=== PATIENT | female | born 1935 | race Caucasian/White ===

== ENCOUNTER → 2016-12-07 | Outpatient (CLI) | payer OTHER ==
[~2016-12-07] MED LIST: ACET-1256 PO; ALBUAER2 INH; ASPI81TA21 PO; ATOR-24 PO; CALC-388 PO; CHOL100027 PO; CLC100 PO; CYCL0.052 OP; DICL1GEL12 TOP; DICL1GEL28 TOP; DOCU100C31 PO; ISOS60TA25 PO; LEVO100T7 PO; MECL1TAB42 PO; MECL25TA2 PO; MULT-190 PO; MULT-506 PO; NITR0.4S UT; OMEG10007 PO; OPTIRAY 320 IV PRN; RIBO100T9 PO; TPRSR/50 PO; VNTHFA/IN INH
--- NOTE | 2016-12-07 10:06 | DIAGNOSTIC IMAGING REPORT ---
CT KIDNEY (ABDOMEN) COMBO CT DOSE: 1747.10 mGy.cm CLINICAL HISTORY: Left renal mass. Abnormal CT scan. TECHNIQUE: Unenhanced images were obtained through the upper abdomen. The patient was then scanned in a dynamic helical fashion during intravenous administration of 94 cc of Optiray 320. 5 minute delayed images were acquired. COMPARISON STUDY: 11/05/2016 FINDINGS: There are mild basilar atelectatic changes. No pleural effusions are visualized. There is hepatic steatosis. No focal masses are visualized. There are multiple gallstones present. No splenic masses are visualized. No peripancreatic masses are visualized. No adrenal masses are visualized. There is a small fat-containing umbilical hernia. There is minimal infiltration of the mesentery, finding unchanged the prior study. There is been interval resolution of the previously identified left-sided uroepithelial thickening. There is left renal cortical scarring. There is a 22 mm right renal cyst. There are 2 upper pole left renal cysts each measuring 8 mm. No solid renal masses are visualized. No collecting system filling defects are visualized on delayed images. IMPRESSION: 1. Cholelithiasis 2. Hepatic steatosis 3. Bilateral renal cysts 4. Left renal cortical scarring 5. No solid renal masses identified. Interval resolution of the previous identified uroepithelial thickening, and interval resolution of the 4 cm hypoenhancing focus within the midpole the left kidney. This indicates resolution of an inflammatory process. Electronically signed by: Juan Caruso M.D. 12/07/2016 10:05 AM Dictated Date/Time: 12/07/2016 9:56 AM
== END | disposition home or self-care (01) ==
LOC: C.CTS 09:11
PROVIDERS: ATTEND Family Medicine
DX: R93.422 Abnormal radiologic findings on diagnostic imaging of left kidney (principal); K76.0 Fatty (change of) liver, not elsewhere classified; K80.20 Calculus of gallbladder without cholecystitis without obstruction

== ENCOUNTER → 2017-01-19 | Outpatient (CLI) | payer OTHER ==
[~2017-01-19] MED LIST changes: -OPTIRAY 320 IV PRN
--- NOTE | 2017-01-19 12:00 | DIAGNOSTIC IMAGING REPORT ---
PA CHEST WITH LEFT-SIDED RIB SERIES CLINICAL HISTORY: Left-sided rib pain. FINDINGS: A PA chest radiograph with 4 additional views from a left-sided rib series is compared to study dated 11/03/2016. The examination is degraded by large body habitus. The heart is enlarged and there is atherosclerotic calcification of the thoracic aorta. The pulmonary vasculature is noncongested. Chronic interstitial thickening is similar to previous. The lungs and pleural spaces are clear noting left basilar atelectasis. No pneumothorax is seen. The skeletal structures are osteopenic. There is no radiographic evidence of acute/distracted left-sided rib fracture on the rib series as clinically queried. The remainder of the bony thorax is grossly intact. Calcified joint bodies are noted in the left shoulder. Degenerative change and mild scoliosis are noted in the thoracic spine. IMPRESSION: 1. Cardiomegaly with no acute cardiopulmonary abnormality. 2. There is no radiographic evidence of acute/distracted left-sided rib fracture on the rib series as clinically queried. Electronically signed by: Erik To M.D. 01/19/2017 11:59 AM Dictated Date/Time: 01/19/2017 11:55 AM
--- NOTE | 2017-01-19 12:21 | DIAGNOSTIC IMAGING REPORT ---
RIGHT PELVIS/UNILATERAL HIP 2-3VIEWS CLINICAL HISTORY: RIGHT HIP PAIN Right pain COMPARISON: None. DISCUSSION: Moderate to rather significant degenerative change of the right as well as left hip. Degenerative subchondral cyst formation of the femoral head. No evidence for acetabular protrusion. Mild reactive osteophytic change at the greater trochanters bilaterally. Moderate degenerative changes low lumbar spine. There is no evidence for soft tissue swelling. IMPRESSION: Moderate/rather significant degenerative change of the hips bilaterally. Degenerative changes low lumbar spine. Electronically signed by: Tao Mustafa M.D. 01/19/2017 12:19 PM Dictated Date/Time: 01/19/2017 12:18 PM
== END | disposition home or self-care (01) ==
LOC: C.RAD1850 11:33
PROVIDERS: ATTEND Family Medicine
DX: R07.81 Pleurodynia (principal); I51.7 Cardiomegaly; M25.551 Pain in right hip

== ENCOUNTER → 2017-03-29 | Outpatient (CLI) | payer OTHER ==
--- NOTE | 2017-03-29 10:52 | DIAGNOSTIC IMAGING REPORT ---
Venous Doppler right leg RIGHT VENOUS DOPP LOWER EXT UNILAT CLINICAL HISTORY: RIGHT KNEE Right pain. Edema. TECHNIQUE: Venous Doppler COMPARISON STUDY: None FINDINGS: Normal study. Instill note is made of a popliteal cyst measuring 5 x 3 cm. IMPRESSION: Normal study . No evidence for deep venous thrombosis. 5 x 3 cm cyst/popliteal cyst posterior/medial to the right knee. Electronically signed by: Tao Mustafa M.D. 03/29/2017 10:51 AM Dictated Date/Time: 03/29/2017 10:42 AM
== END | disposition home or self-care (01) ==
LOC: C.ULTR 10:10
DX: M17.0 Bilateral primary osteoarthritis of knee (principal); M71.21 Synovial cyst of popliteal space [Baker], right knee

== ENCOUNTER 2017-05-05 12:25 | Observation (INO) | payer OTHER ==
[~2017-05-05] VITALS: Ht 167.6 cm; Wt 73.0 kg
[~2017-05-05 12:25] MED LIST changes: -CYCL0.052 OP; -DICL1GEL12 TOP; -DOCU100C31 PO; -ISOS60TA25 PO; -MECL1TAB42 PO; -RIBO100T9 PO; -VNTHFA/IN INH
[2017-05-05] MEDS ORDERED: SODIUM CHLORIDE 0.9% 1000ML 1,000 ML IV STA (12:54)
[2017-05-05] MEDS ORDERED: ONDANSETRON INJ 2 MG/ML 2 ML VIAL IV STA (12:54)
[2017-05-05] MEDS ORDERED: MoRPHine SULFATE 4 MG/ML 1 ML CARP\\VIAL IV STA (12:54)
[2017-05-05 13:05] LABS: BASO % 0.5 %; BASO ABS # 0.03 K/uL (0-0.2); COMPLETE YES; EOS % 2.4 %; HEMATOCRIT 37.7 % (37-47); IG% 0.2 %; LYMPH % 21.8 %; LYMPH ABS # 1.27 K/uL (1.2-3.4); MEAN CELL VOLUME 87.1 fL (80-100); MEAN CORPUSCULAR HEMOGLOBIN 29.8 pg (25-34); MEAN CORPUSCULAR HGB CONC 34.2 g/dl (32-36); MEAN PLATELET VOLUME 9.9 fL (7.4-10.4); MONO % 14.8 %; NEUT % 60.3 %; PLATELET COUNT 124 K/uL (130-400); RED BLOOD COUNT 4.33 M/uL (4.2-5.4); WHITE BLOOD COUNT 5.83 K/uL (4.8-10.8)
--- NOTE | 2017-05-05 13:14 | DIAGNOSTIC IMAGING REPORT ---
CHEST ONE VIEW PORTABLE CLINICAL HISTORY: cough dyspnea COMPARISON STUDY: 11/03/2016 FINDINGS: Mild stable cardia megaly. Diaphragms smooth. Lungs are generally considered clear. Possible early parenchymal infiltrate medial right base. IMPRESSION: Small parenchymal infiltrate medial right base. Mild stable cardiomegaly. Electronically signed by: Tao Mustafa M.D. 05/05/2017 1:13 PM Dictated Date/Time: 05/05/2017 1:12 PM
[2017-05-05 13:24] LABS: ALT/SGPT 26 U/L (12-78); AST/SGOT 21 U/L (15-37); BLOOD UREA NITROGEN 17 mg/dl (7-18); BUN/CREATININE RATIO 19.9 (10-20); CARBON DIOXIDE 23 mmol/L (21-32); CHLORIDE 105 mmol/L (98-107); CREATININE 0.84 mg/dl (0.60-1.20); GLUCOSE 112 mg/dl (70-99); POTASSIUM 3.9 mmol/L (3.5-5.1); SODIUM 138 mmol/L (136-145)
[2017-05-05 13:29] LABS: ALKALINE PHOSPHATASE 129 U/L (45-117)
[2017-05-05] MEDS ORDERED: LEVAQUIN 750MG / 150ML D5W IV STA (13:31)
[2017-05-05] MEDS ORDERED: CEFEPIME IV 1,000 MG in DEXTROSE 5% 100ML 100 ML IV STA (13:31)
[2017-05-05] MEDS ORDERED: MECL1TAB42 PO (13:36)
[2017-05-05] MEDS ORDERED: DOCU100C31 PO (13:36)
[2017-05-05] MEDS ORDERED: VNTHFA/IN INH (13:36)
[2017-05-05] MEDS ORDERED: DICL1GEL12 TOP (13:36)
[2017-05-05] MEDS ORDERED: CYCL0.052 OP (13:42)
[2017-05-05] MEDS ORDERED: ISOS60TA25 PO (13:42)
[2017-05-05] MEDS ORDERED: RIBO100T9 PO (13:42)
[2017-05-05 13:50] LABS: ISTAT CREATININE 0.8 mg/dl (0.6-1.3); ISTAT HEMOGLOBIN 12.2 g/dl (12.0-16.0); ISTAT IONIZED CALCIUM 1.19 mmol/l (1.12-1.32)
[2017-05-05 13:53] LABS: URINE APPEARANCE CLOUDY (CLEAR); URINE COLOR DK YELLOW; URINE EPITHELIAL CELL AUTO >30 /lpf (0-5); URINE NITRITE NEG (NEG); URINE SPECIFIC GRAVITY 1.033 (1.000-1.030); UROBILINOGEN NEG (NEG); ZZUR CULT IF INDIC CLEAN CATCH NO
[2017-05-05 14:16] LABS: MANUAL MICROSCOPIC REQUIRED? NO; REVIEW REQ? YES; URINE BILIRUBIN NEG (NEG)
[2017-05-05] MEDS ORDERED: OPTIRAY 320 IV PRN (14:30)
--- NOTE | 2017-05-05 15:24 | DIAGNOSTIC IMAGING REPORT ---
ABDOMEN AND PELVIS CT WITH IV CONTRAST CT DOSE: 516.23 mGy.cm HISTORY: Generalized abdominal pain. TECHNIQUE: Multiaxial CT images of the abdomen and pelvis were performed following the use of intravenous contrast. COMPARISON STUDY: Abdomen and pelvis CT 11/05/2016. FINDINGS: The lung bases are clear. No pneumoperitoneum. No pneumatosis. Dextroscoliosis and degenerative changes within the lumbar spine. Cholelithiasis. No gallbladder wall thickening. The liver, spleen, adrenal glands, and pancreas are unremarkable. Stable bilateral renal hypodense lesions. These likely represent cysts. Focal scarring within the left renal cortex. Fullness within the right extrarenal pelvis. No hydronephrosis. Normal bladder. The uterus and ovaries are unremarkable. Tiny fat-containing umbilical hernia. No bowel wall thickening or obstruction. Normal appendix. IMPRESSION: 1. No bowel wall thickening or obstruction. 2. Cholelithiasis. 3. Mild fullness within the right extrarenal pelvis. No hydronephrosis. No ureteral calculi. Electronically signed by: Torin Qureshi M.D. 05/05/2017 3:23 PM Dictated Date/Time: 05/05/2017 3:14 PM
[2017-05-05] MEDS ORDERED: MAGNESIUM HYDROXIDE SUSP 30 ML UDC PO PRN (17:00)
[2017-05-05] MEDS ORDERED: ALUMINUM/MAGNESIUM/SIMETH (MAALOX MAX) 30 ML UDC PO PRN (17:00)
[2017-05-05] MEDS ORDERED: DICLOFENAC SOD 1% GEL 100 GM TUBE EXT PRN (17:00)
[2017-05-05] MEDS ORDERED: ACETAMINOPHEN 325 MG TAB PO PRN (17:00)
[2017-05-05] MEDS ORDERED: ALBUTEROL HFA 8 GM INHALER INH PRN (17:00)
[2017-05-05] MEDS ORDERED: POLYETHYLENE (MIRALAX) 17 GM PACK PO PRN (17:00)
[2017-05-05] MEDS ORDERED: MECLIZINE HCL 25 MG TAB PO PRN (17:00)
[2017-05-05] MEDS ORDERED: NITROGLYCERIN 0.4 MG SL PER TAB CHARGE UT PRN (17:00)
[2017-05-05] MEDS ORDERED: ONDANSETRON INJ 2 MG/ML 2 ML VIAL IV PRN (17:00)
[2017-05-05] MEDS ORDERED: ALBUT/IPRATROP 3MG/0.5MG NEB 3 ML VIAL INH PRN (17:00)
[2017-05-05] MEDS ORDERED: MoRPHine SULFATE 2 MG/ML CARP IV PRN (17:15)
--- NOTE | 2017-05-05 17:26 | History and Physical ---
History & Physical Date & Time of Service: May 05, 2017 at 17:07 Chief Complaint: Pain/Tender Stomach And Low Blood Pressure Primary Care Physician: Parul Pulliam PA-C History of Present Illness Source: patient, family (daughter- at bedside ), clinic records, hospital records Patient is a pleasant 81 female, with PMHx of HTN, dyslipidemia, hypothyroidism , and CAD s/p heart catheterization, who presented to the ED because of lower abdominal and back pain. Patient was seen at [facility] who instructed patient to come to ED for further abdominal workup. Patient states she has diffuse pelvic pain- she denies any urinary symptoms. Patient also admits to thoracic/lumbar pain that has been ongoing for a couple of weeks now. She denies any falls/trauma. Pain worsens with movement and ambulating. On she started to develop sore throat, cough, and left ear pain. Symptoms have significantly resolved, but cough persist w/ clear/white sputum production. Patient denies any fever, chills, sweats, lightheadedness, dizziness, vision changes, CP, palpitations, edema, SOB, wheezing, nausea, vomiting, diarrhea, urinary symptoms, melena, numbness/tingling, weakness, anxiety/depression, active bleeding, or new skin discoloration/changes. Patient's last admission was in October of 2016- she was worked up for a TIA but workup was unremarkable. She was found to have E.coli UTI and treated w/ Cipro. Past Medical/Surgical History Medical Problems: 1. HTN 2. Hypothyroidism 3. CAD s/p heart catheterization 4. Dyslipidemia Surgical history: 1. Cataract surgery Family History No pertinent family history Social History Smoking Status: Never Smoker Marital Status: Occupational Status: unemployed Multi-Drug Resistant Organisms History of MDRO: No Allergies Coded Allergies: Cortisone (Verified Allergy, Unknown, redness, hives, itching, 05/05/17) Penicillins (Verified Allergy, Unknown, RASH, 05/05/17) Home Medications Scheduled Aspirin Enteric Coated (Ecotrin Or Generic), 81 MG PO HS Atorvastatin (Lipitor), 40 MG PO HS Calcium Carbonate-Vitamin D (Calcium + D3 600-200 mg-Unit), 1 TAB PO BID Cholecalciferol (Vitamin D 1000 Unit), 2,000 INTER.UNIT PO DAILY Cyclosporine (Ophth) (Restasis), 1 DROP OP BID Docusate Sodium (Docusate Sodium), 100 MG PO BID Isosorbide Mononitrate Ext Rel (Imdur Ext Rel), 60 MG PO QAM Levothyroxine Sodium (Levothyroxine Sodium), 100 MCG PO DAILY Metoprolol Succinate (Metoprolol Succinate ER), 50 MG PO DAILY Multivitamin (Multivitamin), 1 TABLET PO DAILY Nitroglycerin (Nitrostat), 0.4 MG UT PRN Ocuvite Preservision (Ocuvite Preservision), 1 TAB PO DAILY Riboflavin (Vitamin B-2), 400 MG PO DAILY Scheduled PRN Acetaminophen (Tylenol), 1,000 MG PO QID PRN for Pain Albuterol Hfa (Ventolin Hfa), 2 PUFFS INH QID PRN for Shortness of Breath Diclofenac Sodium (Topical) (Voltaren 1% Top Gel), 1 APPLN TOP UD PRN for Pain Meclizine Hcl (Meclizine Hcl), 25 MG PO TID PRN for Dizziness or Vertigo Physical Exam Vital Signs Date Time Temp Pulse Resp B/P (MAP) Pulse Ox O2 Delivery O2 Flow Rate FiO2 05/05/17 14:55 66 15 05/05/17 14:50 70 17 97 05/05/17 14:48 132/59 05/05/17 14:35 67 15 05/05/17 14:31 112/55 05/05/17 14:30 64 14 05/05/17 14:25 64 15 05/05/17 14:20 65 24 05/05/17 14:15 63 21 05/05/17 14:10 70 18 05/05/17 14:05 64 18 05/05/17 14:01 123/57 05/05/17 14:00 67 20 05/05/17 13:55 67 20 05/05/17 13:50 75 17 05/05/17 13:45 71 14 05/05/17 13:40 70 22 05/05/17 13:35 75 21 05/05/17 13:31 110/66 05/05/17 13:30 71 22 05/05/17 13:25 73 19 05/05/17 13:20 72 15 05/05/17 13:15 72 15 05/05/17 13:10 74 25 05/05/17 13:05 75 18 05/05/17 13:01 109/58 05/05/17 13:00 73 15 05/05/17 12:59 71 05/05/17 12:55 72 19 05/05/17 12:50 72 17 05/05/17 12:28 36.7 80 20 90/55 95 Room Air General Appearance: no apparent distress Head: normocephalic, atraumatic Eyes: normal inspection, PERRL ENT: hearing grossly normal Neck: supple Respiratory/Chest: lungs clear, no respiratory distress, no accessory muscle use, + decreased breath sounds (throughtout ) Cardiovascular: regular rate, rhythm Abdomen/GI: normal bowel sounds, soft, + tenderness (suprapubic region ) Back: no CVA tenderness, + pertinent finding (spinal ttp of throacic/lumbar region of spine ) Extremities/Musculoskelatal: no calf tenderness, no pedal edema Neurologic/Psych: alert, normal mood/affect, oriented x 3 Skin: normal color, warm/dry, no rash Diagnostics Laboratory Results Results Past 24 Hours Test 05/05/17 12:45 05/05/17 12:55 05/05/17 13:34 05/05/17 13:38 Range/Units Urine Color DK YELLOW Urine Appearance CLOUDY CLEAR Urine pH 5.0 4.5-7.5 Urine Specific [place] 1.033 1.000-1.030 Urine Protein NEG NEG Urine Glucose (UA) NEG NEG Urine Ketones TRACE NEG Urine Occult Blood NEG NEG Urine Nitrite NEG NEG Urine Bilirubin NEG NEG Urine Urobilinogen NEG NEG Urine Leukocyte Esterase SMALL NEG Urine WBC (Auto) 1-5 0-5 /hpf Urine RBC (Auto) 0-4 0-4 /hpf Urine Hyaline Casts (Auto) 10-30 0-5 /lpf Urine Epithelial Cells (Auto) >30 0-5 /lpf Urine Bacteria (Auto) NEG NEG Urine Renal Epithelial Cells 0-5 /lpf White Blood Count 5.83 4.8-10.8 K/uL Red Blood Count 4.33 4.2-5.4 M/uL Hemoglobin 12.9 12.0-16.0 g/dL Hematocrit 37.7 37-47 % Mean Corpuscular Volume 87.1 80-100 fL Mean Corpuscular Hemoglobin 29.8 25-34 pg Mean Corpuscular Hemoglobin Concent 34.2 32-36 g/dl Platelet Count 124 130-400 K/uL Mean Platelet Volume 9.9 7.4-10.4 fL Neutrophils (%) (Auto) 60.3 % Lymphocytes (%) (Auto) 21.8 % Monocytes (%) (Auto) 14.8 % Eosinophils (%) (Auto) 2.4 % Basophils (%) (Auto) 0.5 % Neutrophils # (Auto) 3.52 1.4-6.5 K/uL Lymphocytes # (Auto) 1.27 1.2-3.4 K/uL Monocytes # (Auto) 0.86 0.11-0.59 K/uL Eosinophils # (Auto) 0.14 0-0.5 K/uL Basophils # (Auto) 0.03 0-0.2 K/uL RDW Standard Deviation 42.5 36.4-46.3 fL RDW Coefficient of Variation 13.1 11.5-14.5 % Immature Granulocyte % (Auto) 0.2 % Immature Granulocyte # (Auto) 0.01 0.00-0.02 K/uL Sodium Level 138 136-145 mmol/L Potassium Level 3.9 3.5-5.1 mmol/L Chloride Level 105 98-107 mmol/L Carbon Dioxide Level 23 21-32 mmol/L Anion Gap 10.0 15.0 16-25 mmol/L Blood Urea Nitrogen 17 7-18 mg/dl Creatinine 0.84 0.60-1.20 mg/dl Est Creatinine Clear Calc Drug Dose 54.6 ml/min Estimated GFR () 76.1 Estimated GFR (Non- 65.6 BUN/Creatinine Ratio 19.9 10-20 Random Glucose 112 70-99 mg/dl Calcium Level 9.0 8.5-10.1 mg/dl Total Bilirubin 0.7 0.2-1 mg/dl Direct Bilirubin 0.2 0-0.2 mg/dl Aspartate Amino Transf (AST/SGOT) 21 15-37 U/L Alanine Aminotransferase (ALT/SGPT) 26 12-78 U/L Alkaline Phosphatase 129 45-117 U/L Troponin I < 0.015 0-0.045 ng/ml Total Protein 6.5 6.4-8.2 gm/dl Albumin 3.4 3.4-5.0 gm/dl Lipase 247 73-393 U/L Bedside Lactic Acid Venous 1.25 0.90-1.70 mmol/L Bedside Hemoglobin 12.2 12.0-16.0 g/dl Bedside Hematocrit 36 37-47 % Bedside Sodium 136 135-144 mEq/L Bedside Potassium 4.0 3.3-5.0 mEq/L Bedside Chloride 101 101-112 mEq/L Bedside Total CO2 25 24-31 mEq/l Bedside Blood Urea Nitrogen 19 7-18 mg/dl Bedside Creatinine 0.8 0.6-1.3 mg/dl Bedside Glucose (other) 114 70-99 mg/dl Bedside Ionized Calcium (Mohit) 1.19 1.12-1.32 mmol/l Diagnostic Radiology CHEST ONE VIEW PORTABLE CLINICAL HISTORY: cough dyspnea COMPARISON STUDY: 11/03/2016 FINDINGS: Mild stable cardia megaly. Diaphragms smooth. Lungs are generally considered clear. Possible early parenchymal infiltrate medial right base. IMPRESSION: Small parenchymal infiltrate medial right base. Mild stable cardiomegaly. Electronically signed by: Tao Mustafa M.D. 05/05/2017 1:13 PM Dictated Date/Time: 05/05/2017 1:12 PM The status of this report is Signed. Draft = Not yet reviewed or approved by Radiologist. Signed = Reviewed and approved by Radiologist. ABDOMEN AND PELVIS CT WITH IV CONTRAST CT DOSE: 516.23 mGy.cm HISTORY: Generalized abdominal pain. TECHNIQUE: Multiaxial CT images of the abdomen and pelvis were performed following the use of intravenous contrast. COMPARISON STUDY: Abdomen and pelvis CT 11/05/2016. FINDINGS: The lung bases are clear. No pneumoperitoneum. No pneumatosis. Dextroscoliosis and degenerative changes within the lumbar spine. Cholelithiasis. No gallbladder wall thickening. The liver, spleen, adrenal glands, and pancreas are unremarkable. Stable bilateral renal hypodense lesions. These likely represent cysts. Focal scarring within the left renal cortex. Fullness within the right extrarenal pelvis. No hydronephrosis. Normal bladder. The uterus and ovaries are unremarkable. Tiny fat-containing umbilical hernia. No bowel wall thickening or obstruction. Normal appendix. IMPRESSION: 1. No bowel wall thickening or obstruction. 2. Cholelithiasis. 3. Mild fullness within the right extrarenal pelvis. No hydronephrosis. No ureteral calculi. Electronically signed by: Torin Qureshi M.D. 05/05/2017 3:23 PM Dictated Date/Time: 05/05/2017 3:14 PM The status of this report is Signed. Draft = Not yet reviewed or approved by Radiologist. Signed = Reviewed and approved by Radiologist. EKG ALIS BRIAN ID:[id number] 05-MAY-2017 13:23:06 [facility] Normal sinus rhythm Non-specific intra-ventricular conduction block Abnormal ECG When compared with ECG of 04-NOV-2016 09:07, No significant change was found Confirmed by TL BOYD ([id number]) on 05/05/2017 4:34:58 PM 25mm/s 10mm/mV 150Hz 8.0 SP2 12SL 241 TYE: 10 Referred by: Parul Pulliam Confirmed By: TL BOYD Vent. rate 71 BPM MT interval 170 ms QRS duration 134 ms QT/QTc 452/491 ms P-R-T axes * -9 81 1935 (81 yr) Female 68in 1lb Room: Loc:15 [employer] Supervisor:NNAMDI Krishnan ind: Impression Assessment and Plan Patient is a pleasant 81 female, with PMHx of HTN, dyslipidemia, hypothyroidism , and CAD s/p heart catheterization, who presented to the ED because of lower abdominal and back pain. Right base pneumonia: - Admit to med/surg - Cardiac enzymes negative; EKG w/ no acute changes - O2 protocol- not requiring O2 supplement at admission - IV Levaquin - DuoNebs PRN ?UTI POA: - Pending UCx- coverage w/ antibiotics as above Spinal pain: - Pain control w/ Tylenol PRN and IV Morphine 0.5 mg q3 hrs PRN - Obtain thoracic/lumbar x-ray - Check Vitamin D level - Continue supplements CAD s/p cardiac cath- 95% blockage but no intervention can be done: - Continue ASA 81 mg daily, Metoprolol 50 mg daily, Imdur 60 QAM - Follows w/ Dr. Brumfield Cholelithiasis- noted: f/u w/ PCP- patient is aware of this diagnosis Dyslipidemia: Atorvastatin 40 mg HS Hypothyroidism: Synthroid 100 mcg daily GI Prophylaxis: Maalox PRN, IV Zofran PRN, Colace and/or Milk of Mag PRN DVT prophylaxis: Heparin 5000 units SQ q12 hrs, NELLI and SCDs Dispo: From home- social organization professor consulted - PT/OT evaluations PA Physician Supervision Note: Pt seen/examined independently. I discussed the case with the PA and agree with the findings and plan as documented in the note. Any exceptions or clarifications are listed here: 81 y/o F CAD, HTN, HPL - presenting with back pain and abdominal pain - incidentally her XR is + for PNM - she has not had related symptoms She exhibited hypotension on arrival which responded to a L of IVF - no abnormalities are present on CT abdomen OE Pleasant elderly F - AAO x 3 S1,2 R CTAB Tender lower quadrants No CCE P: Atypical Sx for PNM - we will treat with Levaquin etiology of abd pain not clear - treat symptomatically Hypotension resolved with IVF - presumed dehydration 2/2 decreased intake 2/2 abd pain Documented By: Hossein Pool Level of Care Med/Surg Resuscitation Status FULL RESUSCITATION VTE Prophylaxis VTE Risk Assessment Done? Y/N: Yes Risk Level: Moderate Given or contraindicated: Unfractionated heparin SQ, T.E.D. Stockings, SCD's
--- NOTE | 2017-05-05 20:21 | EMERGENCY ROOM VISIT NOTE ---
History Report prepared by Herminiaibforrest: Rex Gibbons Under the Supervision of: Dr. Jerry Palacios D.O. First contact with patient: 12:45 Chief Complaint: ABDOMINAL PAIN Stated Complaint: PAIN/TENDER STOMACH AND LOW BLOOD PRESSURE History of Present Illness The patient is a 81 year old female who presents to the Emergency Room with complaints of intermittent abdominal pain starting three months ago. The patient states that She rates her pain as a 8/10 in severity. She reports that she was seen at [facility] and was sent to the ED due to her cough and abdominal pain. She reports that her abdominal pain is worse on the right side. The patient states that she had a fever of 100.1 earlier this week, but she checked it today and it was 98.9. The patient states that she has been having a productive cough, runny nose, and sorethroat. The patient also states that she was hypotensive today and had a normal bowel movement this morning but denies any hematochezia or melena.The patient denies any surgical history or new medications. She states that she is independent and lives on her own. The patient denies headache, change in vision, chest pain, nausea, vomiting, diarrhea, pain with urination, and melena. Source of History: patient Onset: 3 months ago Position: abdomen Symptom Intensity: 8/10 Timing: intermittent Associated Symptoms: + fevers, + sorethroat, + cough, No SOB, No nausea, No vomiting, No diarrhea, No urinary symptoms Review of Systems See HPI for pertinent positives & negatives. A total of 10 systems reviewed and were otherwise negative. Past Medical & Surgical Medical Problems: (1) Benign hypertension (2) CAD (coronary artery disease) (3) Chronic back pain (4) Hypokalemia (5) Hypothyroidism (6) LDH (7) Osteoarthritis (8) Pneumonia (9) TIA (transient ischemic attack) Family History No pertinent family history Social History Smoking Status: Never Smoker Smokeless Tobacco Use: No Drug Use: none Marital Status: Occupation Status: retired Current/Historical Medications Scheduled Aspirin Enteric Coated (Ecotrin Or Generic), 81 MG PO HS Atorvastatin (Lipitor), 40 MG PO HS Calcium Carbonate-Vitamin D (Calcium + D3 600-200 mg-Unit), 1 TAB PO BID Cholecalciferol (Vitamin D 1000 Unit), 2,000 INTER.UNIT PO DAILY Cyclosporine (Ophth) (Restasis), 1 DROP OP BID Docusate Sodium (Docusate Sodium), 100 MG PO BID Isosorbide Mononitrate Ext Rel (Imdur Ext Rel), 60 MG PO QAM Levothyroxine Sodium (Levothyroxine Sodium), 100 MCG PO DAILY Metoprolol Succinate (Metoprolol Succinate ER), 50 MG PO DAILY Multivitamin (Multivitamin), 1 TABLET PO DAILY Nitroglycerin (Nitrostat), 0.4 MG UT PRN Ocuvite Preservision (Ocuvite Preservision), 1 TAB PO DAILY Riboflavin (Vitamin B-2), 400 MG PO DAILY Scheduled PRN Acetaminophen (Tylenol), 1,000 MG PO QID PRN for Pain Albuterol Hfa (Ventolin Hfa), 2 PUFFS INH QID PRN for Shortness of Breath Diclofenac Sodium (Topical) (Voltaren 1% Top Gel), 1 APPLN TOP UD PRN for Pain Meclizine Hcl (Meclizine Hcl), 25 MG PO TID PRN for Dizziness or Vertigo Allergies Coded Allergies: Cortisone (Verified Allergy, Unknown, redness, hives, itching, 05/05/17) Penicillins (Verified Allergy, Unknown, RASH, 05/05/17) Physical Exam Vital Signs Date Time Temp Pulse Resp B/P (MAP) Pulse Ox O2 Delivery O2 Flow Rate FiO2 05/05/17 20:02 76 18 110/58 98 05/05/17 17:45 68 16 132/78 97 Room Air 05/05/17 14:55 66 15 05/05/17 14:50 70 17 97 05/05/17 14:48 132/59 05/05/17 14:35 67 15 05/05/17 14:31 112/55 05/05/17 14:30 64 14 05/05/17 14:25 64 15 05/05/17 14:20 65 24 05/05/17 14:15 63 21 05/05/17 14:10 70 18 05/05/17 14:05 64 18 05/05/17 14:01 123/57 05/05/17 14:00 67 20 05/05/17 13:55 67 20 05/05/17 13:50 75 17 05/05/17 13:45 71 14 05/05/17 13:40 70 22 05/05/17 13:35 75 21 05/05/17 13:31 110/66 05/05/17 13:30 71 22 05/05/17 13:25 73 19 05/05/17 13:20 72 15 05/05/17 13:15 72 15 05/05/17 13:10 74 25 05/05/17 13:05 75 18 05/05/17 13:01 109/58 05/05/17 13:00 73 15 05/05/17 12:59 71 05/05/17 12:55 72 19 05/05/17 12:50 72 17 05/05/17 12:28 36.7 80 20 90/55 95 Room Air Physical Exam GENERAL: Sitting up in bed. Disheveled. alert, well appearing, well nourished, non-toxic EYE EXAM: normal conjunctiva, PERRL and EOM's grossly intact OROPHARYNX: no exudate, no erythema, lips, buccal mucosa, and tongue normal and mucous membranes are moist NECK: supple, no nuchal rigidity, no adenopathy, non-tender LUNGS: Clear to auscultation. Normal chest wall mechanics HEART: positive systolic ejection no murmurs, S1 normal and S2 normal ABDOMEN: abdomen soft, diffusive tenderness, normo-active bowel sounds, no masses, no rebound or guarding. BACK: Back is symmetrical on inspection and there is no deformity, no midline tenderness, no CVA tenderness. SKIN: no rashes and no bruising UPPER EXTREMITIES: upper extremities are grossly normal. LOWER EXTREMITIES: No pitting edema. NEURO EXAM: Normal sensorium, cranial nerves II-XII grossly intact, normal speech, no gross weakness of arms, no gross weakness of legs. No drift. Gross sensation intact. Medical Decision & Procedures ER Provider Diagnostic Interpretation: Radiology results as stated below per my review and the radiologist's interpretation: CHEST ONE VIEW PORTABLE CLINICAL HISTORY: cough dyspnea COMPARISON STUDY: 11/03/2016 FINDINGS: Mild stable cardia megaly. Diaphragms smooth. Lungs are generally considered clear. Possible early parenchymal infiltrate medial right base. IMPRESSION: Small parenchymal infiltrate medial right base. Mild stable cardiomegaly. Electronically signed by: Tao Mustafa M.D. 05/05/2017 1:13 PM Dictated Date/Time: 05/05/2017 1:12 PM ABDOMEN AND PELVIS CT WITH IV CONTRAST CT DOSE: 516.23 mGy.cm HISTORY: Generalized abdominal pain. TECHNIQUE: Multiaxial CT images of the abdomen and pelvis were performed following the use of intravenous contrast. COMPARISON STUDY: Abdomen and pelvis CT 11/05/2016. FINDINGS: The lung bases are clear. No pneumoperitoneum. No pneumatosis. Dextroscoliosis and degenerative changes within the lumbar spine. Cholelithiasis. No gallbladder wall thickening. The liver, spleen, adrenal glands, and pancreas are unremarkable. Stable bilateral renal hypodense lesions. These likely represent cysts. Focal scarring within the left renal cortex. Fullness within the right extrarenal pelvis. No hydronephrosis. Normal bladder. The uterus and ovaries are unremarkable. Tiny fat-containing umbilical hernia. No bowel wall thickening or obstruction. Normal appendix. IMPRESSION: 1. No bowel wall thickening or obstruction. 2. Cholelithiasis. 3. Mild fullness within the right extrarenal pelvis. No hydronephrosis. No ureteral calculi. Electronically signed by: Torin Qureshi M.D. 05/05/2017 3:23 PM Dictated Date/Time: 05/05/2017 3:14 PM Laboratory Results 05/05/17 12:55 Red Blood Count 4.33, Mean Corpuscular Volume 87.1, Mean Corpuscular Hemoglobin 29.8, Mean Corpuscular Hemoglobin Concent 34.2, Mean Platelet Volume 9.9, Neutrophils (%) (Auto) 60.3, Lymphocytes (%) (Auto) 21.8, Monocytes (%) (Auto) 14.8, Eosinophils (%) (Auto) 2.4, Basophils (%) (Auto) 0.5, Neutrophils # (Auto ) 3.52, Lymphocytes # (Auto) 1.27, Monocytes # (Auto) 0.86, Eosinophils # (Auto ) 0.14, Basophils # (Auto) 0.03 05/05/17 12:55 Test 05/05/17 12:45 05/05/17 12:55 05/05/17 13:34 05/05/17 13:38 Urine Color DK YELLOW Urine Appearance CLOUDY (CLEAR) Urine pH 5.0 (4.5-7.5) Urine Specific [place] 1.033 (1.000-1.030) Urine Protein NEG (NEG) Urine Glucose (UA) NEG (NEG) Urine Ketones TRACE (NEG) Urine Occult Blood NEG (NEG) Urine Nitrite NEG (NEG) Urine Bilirubin NEG (NEG) Urine Urobilinogen NEG (NEG) Urine Leukocyte Esterase SMALL (NEG) Urine WBC (Auto) 1-5 /hpf (0-5) Urine RBC (Auto) 0-4 /hpf (0-4) Urine Hyaline Casts (Auto) 10-30 /lpf (0-5) Urine Epithelial Cells (Auto) >30 /lpf (0-5) Urine Bacteria (Auto) NEG (NEG) Urine Renal Epithelial Cells /lpf (0-5) White Blood Count 5.83 K/uL (4.8-10.8) Red Blood Count 4.33 M/uL (4.2-5.4) Hemoglobin 12.9 g/dL (12.0-16.0) Hematocrit 37.7 % (37-47) Mean Corpuscular Volume 87.1 fL (80-100) Mean Corpuscular Hemoglobin 29.8 pg (25-34) Mean Corpuscular Hemoglobin Concent 34.2 g/dl (32-36) Platelet Count 124 K/uL (130-400) Mean Platelet Volume 9.9 fL (7.4-10.4) Neutrophils (%) (Auto) 60.3 % Lymphocytes (%) (Auto) 21.8 % Monocytes (%) (Auto) 14.8 % Eosinophils (%) (Auto) 2.4 % Basophils (%) (Auto) 0.5 % Neutrophils # (Auto) 3.52 K/uL (1.4-6.5) Lymphocytes # (Auto) 1.27 K/uL (1.2-3.4) Monocytes # (Auto) 0.86 K/uL (0.11-0.59) Eosinophils # (Auto) 0.14 K/uL (0-0.5) Basophils # (Auto) 0.03 K/uL (0-0.2) RDW Standard Deviation 42.5 fL (36.4-46.3) RDW Coefficient of Variation 13.1 % (11.5-14.5) Immature Granulocyte % (Auto) 0.2 % Immature Granulocyte # (Auto) 0.01 K/uL (0.00-0.02) Est Creatinine Clear Calc Drug Dose 54.6 ml/min Estimated GFR () 76.1 Estimated GFR (Non- 65.6 BUN/Creatinine Ratio 19.9 (10-20) Calcium Level 9.0 mg/dl (8.5-10.1) Total Bilirubin 0.7 mg/dl (0.2-1) Direct Bilirubin 0.2 mg/dl (0-0.2) Aspartate Amino Transf (AST/SGOT) 21 U/L (15-37) Alanine Aminotransferase (ALT/SGPT) 26 U/L (12-78) Alkaline Phosphatase 129 U/L (45-117) Troponin I < 0.015 ng/ml (0-0.045) Total Protein 6.5 gm/dl (6.4-8.2) Albumin 3.4 gm/dl (3.4-5.0) Lipase 247 U/L (73-393) Bedside Lactic Acid Venous 1.25 mmol/L (0.90-1.70) Bedside Hemoglobin 12.2 g/dl (12.0-16.0) Bedside Hematocrit 36 % (37-47) Bedside Sodium 136 mEq/L (135-144) Bedside Potassium 4.0 mEq/L (3.3-5.0) Bedside Chloride 101 mEq/L (101-112) Bedside Total CO2 25 mEq/l (24-31) Anion Gap 15.0 mmol/L (16-25) Bedside Blood Urea Nitrogen 19 mg/dl (7-18) Bedside Creatinine 0.8 mg/dl (0.6-1.3) Bedside Glucose (other) 114 mg/dl (70-99) Bedside Ionized Calcium (Mohit) 1.19 mmol/l (1.12-1.32) Laboratory results per my review. Medications Administered Medications (Trade) Dose Ordered Sig/Too Route Start Time Stop Time Status Last Admin Dose Admin Sodium Chloride 1,000 ml @ 999 mls/hr Q1H1M STAT IV 05/05/17 12:54 05/05/17 13:54 DC 05/05/17 13:42 999 MLS/HR Ondansetron HCl (Zofran Inj) 4 mg NOW STAT IV 05/05/17 12:54 05/05/17 12:55 DC 05/05/17 13:39 4 MG Morphine Sulfate (MoRPHine SULFATE INJ) 4 mg NOW STAT IV 05/05/17 12:54 05/05/17 12:55 DC 05/05/17 13:38 4 MG Cefepime HCl 1000 mg/Dextrose 111.3 ml @ 200 mls/hr NOW STAT IV 05/05/17 13:31 05/05/17 14:04 DC 05/05/17 14:27 200 MLS/HR Levofloxacin (Levaquin / D5W) 750 mg NOW STAT IV 05/05/17 13:31 05/05/17 13:33 DC 05/05/17 13:39 750 MG ECG Indication: abdominal pain Rate (beats per minute): 71 Rhythm: sinus rhythm Findings: RBBB, other (normal axis) ED Course ED COURSE: Vital signs were reviewed and showed hypotensive. The patients medical record was reviewed The above diagnostic studies were performed and reviewed. ED treatments and interventions as stated above. 1248: The patient was evaluated in room C08. A complete history and physical examination was performed. 1254: Morphine Sulfate 4 mg IV, Zofran Injection 4 mg IV, Sodium Chloride 1000 ml @ 999 mls/hr IV. 1331: Levofloxacin 750 mg IV, Cefepime HCl 1000 mg/ Dextrose 111.3 ml @ 200 mls/ hr IV. 1430: Ioversol 125 ml IV. 1530: I reevaluted the patient and she is resting comfortably. I ordered her antibiotics. I discussed the patient's case with Dr. Pool, [facility] Hospitalist. He understands the patient's condition and agrees to accept the patient. The patient will be further evaluated. Medical Decision Differential diagnoses includes but is not limited to gastritis, peptic ulcer disease, GERD, gallbladder disease, pancreatitis, small bowel obstruction, acute coronary syndrome, pericarditis, ischemic bowel, irritable bowel disease, irritable bowel syndrome, appendicitis, diverticulitis, malignancy, hernia, urinary tract infection, torsion, [/ectopic (if female)], perforation, trauma, infectious. Patient is an 81-year-old female who presents the ER for abdominal pain associated with hypotension, cough, and runny nose. CBC along with BMP, LFTs and lipase were normal. Troponin was negative. UA was contaminated. Chest x- ray supports an infiltrate. This combination with her cough, runny nose and productive sputum I felt as though this could be causing her hypotension. Systolic blood pressures were 80 for the PCP and upon presentation to the ER 90s. She was given a bolus normal saline. She was given cefepime and Levaquin. CT of the abdomen and pelvis is negative. She was admitted to internal medicine for pneumonia and hypertension. Consults Time Called: 1529 Consulting Physician: Dr. Pool, [facility] Hospitalist Returned Call: [phone] I discussed the patient's case with Dr. Pool, [facility] Hospitalist. He understands the patient's condition and agrees to accept the patient. The patient will be further evaluated. Impression Primary Impression: Pneumonia Scribe Attestation The scribe's documentation has been prepared under my direction and personally reviewed by me in its entirety. I confirm that the note above accurately reflects all work, treatment, procedures, and medical decision making performed by me. Departure Information Dispostion Being Evaluated By Hospitalist (Dr. Pool) Referrals Parul Pulliam PA-C (PCP) Patient Instructions My [facility] Problem Qualifiers Primary Impression: Pneumonia Pneumonia type: due to unspecified organism Laterality: unspecified laterality Lung location: unspecified part of lung Qualified Codes: J18.9 - Pneumonia, unspecified organism
[2017-05-05] MEDS ORDERED: ASPIRIN 81 MG ECTAB PO SCH (21:00)
[2017-05-05] MEDS ORDERED: ATORVASTATIN 40 MG TAB PO SCH (21:00)
[2017-05-05] MEDS ORDERED: IV FLUIDS COMPLETED PRN (21:15)
[2017-05-05 21:20] VITALS: BP 135/81; PULSE 78; TEMP 37.2; O2SAT 91
[2017-05-05 21:22] VITALS: BP 135/81; PULSE 78; TEMP 37.2; O2SAT 91; Ht 167.6 cm; Wt 73.0 kg
--- NOTE | 2017-05-05 21:32 | DIAGNOSTIC IMAGING REPORT ---
THORACIC SPINE 2-VIEWS CLINICAL HISTORY: Thoracic/lumbar pain COMPARISON STUDY: Chest radiograph July 26, 2012. FINDINGS: Alignment of the thoracic spine is anatomic. There is no acute fracture or suspicious lesion. There is mild disc space narrowing and moderate anterior osteophytosis. IMPRESSION: 1. No acute thoracic spine fracture. 2. Mild multilevel disc space narrowing and moderate anterior osteophytosis of the thoracic spine. Electronically signed by: Juan Mccabe M.D. 05/05/2017 9:31 PM Dictated Date/Time: 05/05/2017 9:29 PM
--- NOTE | 2017-05-05 21:34 | DIAGNOSTIC IMAGING REPORT ---
FLUOROSCOPIC IMAGES OF THE LUMBAR SPINE CLINICAL HISTORY: Thoracic/lumbar pain COMPARISON: Lumbar spine radiographs January 09, 2010. FLUOROSCOPY TIME: FINDINGS: There are gallstones within the gallbladder. There is made of contrast within the right collecting system and bladder from recent contrast-enhanced CT. There is mild dextroscoliosis of the lumbar spine. Slight anterolisthesis of L5 on S1 is noted. There is moderate to severe multilevel degenerative disc disease and facet arthrosis with disc space narrowing, osteophytosis and vacuum disc phenomenon. IMPRESSION: 1. No acute lumbar spine fracture. 2. Moderate to severe multilevel degenerative disc disease and facet arthrosis. 3. Mild dextroscoliosis of the lumbar spine. Electronically signed by: Juan Mccabe M.D. 05/05/2017 9:33 PM Dictated Date/Time: 05/05/2017 9:31 PM
[2017-05-05 22:18] LABS: PROTHROMBIN TIME (PATIENT) 10.3 SECONDS (9.0-12.0)
[2017-05-05] MEDS: CALCIUM 600MG + VIT D 400 IU TAB PO SCH (22:43)
[2017-05-05] MEDS: DOCUSATE SODIUM 100 MG CAP PO SCH (22:43)
[2017-05-05] MEDS: HEPARIN SOD 5000 UNIT/0.5 ML CARP SQ SCH (22:45)
[2017-05-06] VITALS: BP 116/73; PULSE 71; TEMP 37.2; O2SAT 95
[2017-05-06] MEDS ORDERED: LEVOFLOXACIN CONSULT ACTIVE PRN (00:15)
[2017-05-06] MEDS ORDERED: LEVOTHYROXINE 100 MCG TAB PO SCH (06:30)
[2017-05-06 06:39] LABS: MEAN CELL VOLUME 88.3 fL (80-100); MEAN CORPUSCULAR HEMOGLOBIN 28.9 pg (25-34); MEAN CORPUSCULAR HGB CONC 32.7 g/dl (32-36); MEAN PLATELET VOLUME 9.5 fL (7.4-10.4); PLATELET COUNT 120 K/uL (130-400); RED BLOOD COUNT 4.19 M/uL (4.2-5.4); WHITE BLOOD COUNT 4.64 K/uL (4.8-10.8)
[2017-05-06 07:10] LABS: BUN/CREATININE RATIO 17.1 (10-20); CALCIUM 8.7 mg/dl (8.5-10.1); CREATININE 0.78 mg/dl (0.60-1.20); POTASSIUM 4.1 mmol/L (3.5-5.1)
[2017-05-06 07:22] VITALS: BP 159/72; PULSE 66; TEMP 36.9; O2SAT 96
[2017-05-06] MEDS: CALCIUM 600MG + VIT D 400 IU TAB PO SCH (07:54)
[2017-05-06] MEDS: DOCUSATE SODIUM 100 MG CAP PO SCH (07:54)
[2017-05-06 08:00] VITALS: O2SAT 96
[2017-05-06] MEDS ORDERED: MULTIVITAMIN TAB PO SCH (09:00)
[2017-05-06] MEDS ORDERED: ISOSORBIDE MONONITRATE 60 MG TABCR PO SCH (09:00)
[2017-05-06] MEDS ORDERED: CEROVITE ADV FORMULA TAB PO SCH (09:00)
[2017-05-06] MEDS ORDERED: CHOLECALCIFEROL 1000 INTER.UNIT TAB PO SCH (09:00)
[2017-05-06] MEDS: HEPARIN SOD 5000 UNIT/0.5 ML CARP SQ SCH (09:37)
--- NOTE | 2017-05-06 13:34 | Discharge Instructions ---
Discharge Instructions Date of Service May 06, 2017. Admission Reason for Admission: Abdominal pain Discharge Discharge Diagnosis / Problem: Abdominal pain, post-viral colitis Discharge Goals Goal(s): Improve disease control Activity Recommendations Activity Limitations: resume your previous activity . Instructions / Follow-Up Instructions / Follow-Up Please follow up with your PCP within a week. Ensure you remain hydrated, if you develop any further fevers, chest pain, shortness of breath, or other new symptoms please call your PCP or return to the ED. Current Hospital Diet Patient's current hospital diet: AHA Diet (Heart Healthy) Discharge Diet Recommended Diet: Diabetes Type 2 Diet Pending Studies Studies pending at discharge: no Medical Emergencies . Who to Call and When: Medical Emergencies: If at any time you feel your situation is an emergency, please call 911 immediately. . Non-Emergent Contact Non-Emergency issues call your: Primary Care Provider . . "Provider Documentation" section prepared by Afua Sanchez. . VTE Core Measure Inpt VTE Proph given/why not?: Unfractionated heparin STARR, Blaise Munguia, SCD 's
--- NOTE | 2017-05-06 13:38 | Discharge Instructions ---
Discharge Instructions Date of Service May 06, 2017. Admission Reason for Admission: Pneumonia Activity Recommendations . Current Hospital Diet Patient's current hospital diet: AHA Diet (Heart Healthy) Medical Emergencies . Who to Call and When: Medical Emergencies: If at any time you feel your situation is an emergency, please call 911 immediately. . Non-Emergent Contact . . "Provider Documentation" section prepared by Afua Sanchez. . VTE Core Measure Inpt VTE Proph given/why not?: Unfractionated heparin STARR, TErnaEEstrella Munguia, SCD 's
[2017-05-06 13:46] VITALS: BP 159/72; PULSE 66; TEMP 36.9; O2SAT 96
[2017-05-06] MEDS ORDERED: LEVOFLOXACIN / D5W 750 MG in PREMIXED IN D5W 150 ML IV SCH (14:00)
--- NOTE | 2017-05-06 16:11 | Discharge Summary ---
Discharge Summary Date of Service May 06, 2017. (Afua Sanchez MD) Discharge Summary Admission Date: May 05, 2017 at 17:06 Discharge Date: May 06, 2017 Discharge Disposition: Home Principal Diagnosis: Nonspecific colitis Procedures: Lumbar XRAY IMPRESSION: 1. No acute lumbar spine fracture. 2. Moderate to severe multilevel degenerative disc disease and facet arthrosis. 3. Mild dextroscoliosis of the lumbar spine. Thoracic XRAY IMPRESSION: 1. No acute thoracic spine fracture. 2. Mild multilevel disc space narrowing and moderate anterior osteophytosis of the thoracic spine. (Afua Sanchez MD) Medication Reconciliation Continued Medications: Acetaminophen (Tylenol) 500 Mg Tab 1000 MG PO QID PRN for Pain, TAB Albuterol Hfa (Ventolin Hfa) 200 Puffs/96693 Mcg Aers 2 PUFFS INH QID PRN for Shortness of Breath Aspirin Enteric Coated (Ecotrin Or Generic) 81 Mg Tab 81 MG PO HS, TAB Atorvastatin (Lipitor) 40 Mg Tab 40 MG PO HS, TAB Calcium Carbonate-Vitamin D (Calcium + D3 600-200 mg-Unit) 1 Tab Tab 1 TAB PO BID Cholecalciferol (Vitamin D 1000 Unit) 1,000 Unit Cap 2000 INTER.UNIT PO DAILY, CAP Cyclosporine (Ophth) (Restasis) 0.05 % Emu 1 DROP OP BID, BTL Diclofenac Sodium (Topical) (Voltaren 1% Top Gel) 1 % Gel 1 APPLN TOP UD PRN for Pain Docusate Sodium (Docusate Sodium) 100 Mg Cap 100 MG PO BID Isosorbide Mononitrate Ext Rel (Imdur Ext Rel) 60 Mg Ertab 60 MG PO QAM, TAB Levothyroxine Sodium (Levothyroxine Sodium) 100 Mcg Tab 100 MCG PO DAILY, #90 Meclizine Hcl (Meclizine Hcl) 25 Mg Tab 25 MG PO TID PRN for Dizziness or Vertigo Metoprolol Succinate (Metoprolol Succinate ER) 50 Mg Tabcr 50 MG PO DAILY, #90 Multivitamin (Multivitamin) Tab 1 TABLET PO DAILY, TAB Nitroglycerin (Nitrostat) 0.4 Mg Sub 0.4 MG UT PRN, SUB Ocuvite Preservision (Ocuvite Preservision) 1 Tab Tab 1 TAB PO DAILY, TAB Riboflavin (Vitamin B-2) 100 Mg Tab 400 MG PO DAILY Discharge Exam Review of Systems: Constitutional: No fever, No chills Eyes: No worsening of vision ENT: No hearing loss Respiratory: No cough, No sputum, No wheezing Cardiovascular: No chest pain, No orthopnea Abdomen: No pain, No nausea, No vomiting Musculoskeletal: No joint pain, No muscle pain Genitourinary - Female: No dysuria Neurologic: No memory loss, No paralysis, No weakness Psychiatric: No depression symptoms Endocrine: No fatigue Hematologic / Lymphatic: No abnormal bleeding/bruising Integumentary: No rash Physical Exam: General Appearance: WD/WN, no apparent distress Eyes: normal inspection, PERRL ENT: hearing grossly normal Neck: supple, no JVD Respiratory/Chest: lungs clear, normal breath sounds, no respiratory distress, no accessory muscle use, + wheezing (mild wheeze L base, which cleared w/coughing) Cardiovascular: regular rate, rhythm, no murmur, normal peripheral pulses Abdomen / GI: normal bowel sounds, non tender, soft Extremities: no calf tenderness, no pedal edema Neurologic/Psychiatric: alert, normal mood/affect, normal reflexes Skin: no rash (Afua Sanchez MD) Hospital Course HPI: Patient is a pleasant 81 female, with PMHx of HTN, dyslipidemia, hypothyroidism, and CAD s/p heart catheterization, who presented to the ED because of lower abdominal and back pain. Patient was seen at [facility] who instructed patient to come to ED for further abdominal workup. Patient states she has diffuse pelvic pain- she denies any urinary symptoms. Patient also admits to thoracic/lumbar pain that has been ongoing for a couple of weeks now. She denies any falls/trauma. Pain worsens with movement and ambulating. On 05/02 she started to develop sore throat, cough, and left ear pain. Symptoms have significantly resolved, but cough persist w/ clear/ white sputum production. Patient denies any fever, chills, sweats, lightheadedness, dizziness, vision changes, CP, palpitations, edema, SOB, wheezing, nausea, vomiting, diarrhea, urinary symptoms, melena, numbness/ tingling, weakness, anxiety/depression, active bleeding, or new skin discoloration/changes. Patient's last admission was in October of 2016- she was worked up for a TIA but workup was unremarkable. She was found to have E.coli UTI and treated w/ Cipro. HOSPITAL COURSE: Abdominal pain - Likely from recent diarrhea, and is a postviral colitis - Urinalysis more suggestive of dehydration Spinal pain: - Pain control w/ Tylenol PRN and IV Morphine 0.5 mg q3 hrs PRN - Obtained thoracic/lumbar x-ray - all normal - Vitamin D level 32.7 - Continue supplements CAD s/p cardiac cath- 95% blockage but no intervention can be done: - Continue ASA 81 mg daily, Metoprolol 50 mg daily, Imdur 60 QAM - Follows w/ Dr. Brumfield Cholelithiasis- noted: f/u w/ PCP- patient is aware of this diagnosis Dyslipidemia: Atorvastatin 40 mg HS Hypothyroidism: Synthroid 100 mcg daily GI Prophylaxis: Maalox PRN, IV Zofran PRN, Colace and/or Milk of Mag PRN DVT prophylaxis: Heparin 5000 units SQ q12 hrs, NELLI and SCDs Dispo: From home- community mental health social worker consulted Total Time Spent: Greater than 30 minutes This includes examination of the patient, discharge planning, medication reconciliation, and communication with other providers. (Afua Sanchez MD) Resident Physician Supervision Note: I interviewed and examined the patient. Discussed with Dr. Sanchez and agree with findings and plan as documented in the note. Any exceptions or clarifications are listed here: None Documented By: Jerry Spaulding feeling better wants to go home extensive discussion with Dr Turner, pt, multiple family members - all in agreement. notes diarrhea 2 days prior to admission now resolved. ROS otherwise negative except for as above vitals noted nad breathing unlabored no pallor or icterus weakness - appearing likely dehydration from nonspecific colitis (most likely viral vs mild food poisoning) - now resolved abdominal pain - from above back pain - DJD related abnormal UA appearing c/w dehydration - no urinary sx. no indication for abx at this time appearance of pneumonia on CXR - no pneumonia s/s. CXR questionable infiltrate at worst, and lung bases clear on CT (CXR findings in question were at base) stable for home (Jerry Spaulding, D.O.) Discharge Instructions Please refer to the electronic Patient Visit Report (Discharge Instructions) for additional information. (Afua Sanchez MD) Follow-Up With PCP within a week (Afua Sanchez MD) Additional Copies To Parul Pulliam PA-C Resident Tracking Resident Involvement: Resident Care Provided Care Provided: Adult Hospital Medicine (Afua Sanchez MD)
== END 2017-05-06 15:50 | disposition home health service (06) ==
LOC: C.EDB 12:26 → C.MS2W 17:06 → ENRESERV 18:21
PROVIDERS: ADMIT Internal Medicine; ATTEND Internal Medicine
DX: K52.9 Noninfective gastroenteritis and colitis, unspecified (principal); I10 Essential (primary) hypertension; E78.5 Hyperlipidemia, unspecified; E03.9 Hypothyroidism, unspecified; I25.10 Atherosclerotic heart disease of native coronary artery without angina pectoris; Z98.890 Other specified postprocedural states; Z98.49 Cataract extraction status, unspecified eye; Z88.0 Allergy status to penicillin; Z79.82 Long term (current) use of aspirin; Z79.899 Other long term (current) drug therapy

== ENCOUNTER → 2017-08-03 | Day surgery (SDC) | payer OTHER ==
[2017-07-29 13:07] VITALS: Ht 162.6 cm; Wt 72.3 kg
[~2017-08-03] VITALS: Ht 162.6 cm; Wt 72.3 kg
[~2017-08-03] MED LIST changes: +500ML BSS 0.3ML EPI 1:1000PF IRRIG ONE; +ACETAMINOPHEN 325 MG TAB PO PRN; -ALBUAER2 INH; +AMVISC PLUS 0.8ML SYRINGE INT OCU ONE; +ATROPINE SULFATE 0.1 MG/ML 5ML SYR IV PRN; +AcetaZOLAMIDE 250 MG TAB PO SCH; +BETAXOLOL HCL 0.25% OP SUSP PER DROP CHARGE OPL SCH; +BRIMONIDINE TART 0.2% OP SOLN PER DROP CHARGE ONE; +BSS FLUSH ONE; -CLC100 PO; +CYCL0.052 OP; +DICL1GEL12 TOP; -DICL1GEL28 TOP; +DOCU100C31 PO; +ENDOCOAT 0.85ML SYRINGE INT OCU ONE; +EpHEDrine SULFATE INJ 50 MG/ML AMP IV PRN; +EpINEphrine INJ 1MG/ML AMP 1 MG/ML AMP ONE; +FENTANYL CITRATE INJ 50 MCG/1 ML 2 ML VIAL IV PRN; +FLUMAZENIL 0.1 MG/1 ML 10 ML VIAL IV PRN; +HYDROmorphone INJ 2 MG/ML SYR/VIAL IV PRN; +ISOS60TA25 PO; +LABETALOL HCL IV 5 MG/ML 20ML IV PRN; +LACTATED RINGER'S 1000ML 500 ML IV SCH; +LIDOCAINE 4% OP SOLN DROP CHARGE ONE; +LIDOCAINE 4% OP SOLN DROP CHARGE OPL SCH; +LIDOCAINE HCL 1% MPF 2 ML VIAL ONE; +MECL1TAB42 PO; -MECL25TA2 PO; +MEPERIDINE HCL 25 MG/ML CARP IV PRN; +MIDAZOLAM HCL 1 MG/ML 2ML VIAL ONE; +MIX: 4ML BSS 1ML EPI 1:1000 PF INSTIL ONE; +MOXIFLOXACIN OPH SOLN PER DROP CHARGE ONE; +NALOXONE HCL 0.4 MG/1 ML VIAL/CARP IV PRN; +OCUCOAT 1 ML SOLN IO ONE; -OMEG10007 PO; +ONDANSETRON INJ 2 MG/ML 2 ML VIAL IV PRN; +PHENYLEPHRINE 100MCG/ML 5ML SYR IV PRN; +POVIDONE-IODINE OP SOLN 30 ML BTL ONE; +PROPARACAINE 0.5% OP SOLN PER DROP CHARGE OPL SCH; +RIBO100T9 PO; +TOBRAMYCIN/DEXAMETHASONE OPH OINT PER APPLN CHARGE ONE; +VNTHFA/IN INH
--- NOTE | 2017-08-03 06:39 | History & Physical Bridge - [place] ---
H&P Re-Evaluation Bridge Note: I have examined the patient, reviewed the History & Physical and in the interval since the performance of the History & Physical I have noted the following changes of clinical significance: No changes noted
[2017-08-03] MEDS: PHENYLEPHRINE HCL 2.5% OP SOLN PER DROP CHARGE OPL SCH ×2 (06:49→06:54)
[2017-08-03] MEDS: TROPICAMIDE 1% OP SOLN PER DROP CHARGE OPL SCH ×2 (06:50→06:55)
[2017-08-03] MEDS: CYCLOPENTOLATE HCL 1% OP SOLN PER DROP CHARGE OPL SCH ×2 (06:51→06:56)
[2017-08-03] MEDS: MOXIFLOXACIN OPH SOLN PER DROP CHARGE OPL SCH ×2 (06:52→07:02)
--- NOTE | 2017-08-03 07:39 | Discharge Instructions-[facility] ---
Discharge Instructions Date of Service Aug 03, 2017. Visit Reason for Visit: Cataract Left Eye Discharge Discharge Diagnosis / Problem: lens implant left eye Discharge Goals Goal(s): Improve function Activity Recommendations Activity Limitations: resume your previous activity Lifting Limitations: no more than 10 pounds Exercise/Sports Limitations: gradually increase as tolerated May Resume Sexual Activity: when tolerated Shower/Bathe: tomorrow Driving or Machine Use: resume 1 day after discharge Anesthesia . Post Anesthesia Instructions: If you have had General Anesthesia or IV Sedation: * Do not drive today. * Resume driving when surgeon permits. * Do not make important decisions or sign legal documents today. * Call surgeon for: 1. Temperature elevations greater than 101 degrees F. 2. Uncontrollable pain. 3. Excessive bleeding. 4. Persistent nausea and vomiting. 5. Medication intolerance (nausea, vomiting or rash). * For nausea and vomiting use only clear liquids such as: tea, soda, bouillon until nausea subsides, then gradually increase diet as tolerated. * If you have any concerns or questions, call your surgeon's office. If physician is unavailable and it is an emergency, call 911 or go to the nearest emergency room. . Instructions / Follow-Up Instructions / Follow-Up ACTIVITY RECOMMENDATIONS: * Light activities. * Mild irritation and blurred vision are common for the first few days. * You may walk outside, read, watch television. * Redness around the white part of the eye is common. MEDICATIONS: Resume previous medications unless instructed otherwise by your surgeon. * Take white Diamox (Acetazolamide) tablet at 1 pm today. Start all eye drops at 1 pm today: * Eye drops (today and tomorrow): Prednisone - one drop in operative eye every 3 hours while awake Tobramycin - one drop in operative eye every 3 hours while awake SPECIAL CARE INSTRUCTIONS: * Tape plastic shield over eye to sleep at night. Call your doctor at with any concerns or problems. FOLLOW UP VISIT: Follow-up with Dr Taylor at [facility] as scheduled. Diet Recommendations Home Diet: no limitations Procedures Procedures Performed: cataract extraction with lens implant Pending Studies Studies pending at discharge: no Medical Emergencies . Who to Call and When: Medical Emergencies: If at any time you feel your situation is an emergency, please call 911 immediately. . Non-Emergent Contact Non-Emergency issues call your: Jewel Inspector Call Non-Emergent contact if: your pain is not controlled [phone] . . "Provider Documentation" section prepared by Rei Taylor. .
--- NOTE | 2017-08-03 07:40 | [facility] Operative Report ---
Operative Report Date of Service Aug 03, 2017. Operative Report 1. PREOPERATIVE DIAGNOSIS: Senile nuclear cataract, left eye. 2. POSTOPERATIVE DIAGNOSIS: Senile nuclear cataract, left eye. 3. PROCEDURE: Phacoemulsification of left cataract with posterior chamber lens implant, type [employer], model MI60L, power +24.0 diopters. ANESTHESIA: Local standby. SURGEON: Dr. Taylor. COMPLICATIONS: None. OPERATING TIME: 10 minutes. 4. OPERATION AND FINDINGS: DESCRIPTION OF PROCEDURE: The left pupil was dilated. The anesthetic was administered using a topical technique. The left eye was prepped and draped. A speculum was placed. A clear corneal incision was formed. The chamber was filled with Amvisc Plus and Endocoat. Epinephrine solution was used. A paracentesis was placed. A capsulorrhexis was performed. The nucleus was hydrodissected. A dense lens was removed with phacoemulsification. Time was 7.74 seconds. The aspiration unit was used to remove the cortex. The capsule was filled with Amvisc Plus. The lens implant was folded and placed into the capsule. The incision was hydrated. The Amvisc was aspirated. The wound was secure. The chamber was deep. The pupil was round. Brimonidine, TobraDex ointment and Vigamox solution were placed. The speculum was removed. The patient was returned to the Recovery Room in stable condition. I attest to the content of the Intraoperative Record and any orders documented therein. Any exceptions are noted below. The scribe's documentation has been prepared in my presence, under my direction and personally reviewed by me in its entirety. I confirm that the note above accurately reflects all work, treatment, procedures, and medical decision making performed by me. I personally scribed for Rei Taylor M.D. ([email or web address]) on 08/03/17 at 07:40. Electronically submitted by Alysa Glez ([email or web address]).
[2017-08-03 07:42] VITALS: TEMP 36.6
--- NOTE | 2017-08-03 07:50 | Anesthesia Progress Nt - [facility] ---
Anesthesia Post Op Note Date & Time Aug 03, 2017 at 07:50 Vital Signs Pain Intensity: 0 Vital Signs Past 12 Hours Date Time Temp Pulse Resp B/P (MAP) Pulse Ox O2 Delivery O2 Flow Rate FiO2 08/03/17 06:41 36.9 61 22 123/78 (93) 95 Room Air Notes Mental Status: alert / awake / arousable, participated in evaluation Pt Amnestic to Procedure: Yes Nausea / Vomiting: adequately controlled Pain: adequately controlled Airway Patency, RR, SpO2: stable & adequate BP & HR: stable & adequate Hydration State: stable & adequate Anesthetic Complications: no major complications apparent
[2017-08-03 08:19] VITALS: BP 121/73; PULSE 55; O2SAT 99
== END | disposition home or self-care (01) ==
LOC: X.SURG 06:12
PROVIDERS: ATTEND Specialist
DX: H25.12 Age-related nuclear cataract, left eye (principal); I10 Essential (primary) hypertension; N28.9 Disorder of kidney and ureter, unspecified; E03.9 Hypothyroidism, unspecified; Z79.899 Other long term (current) drug therapy; Z79.82 Long term (current) use of aspirin

== ENCOUNTER 2017-12-05 11:37 | Inpatient (IN) | payer OTHER ==
[~2017-12-05] VITALS: Ht 165.1 cm; Wt 83.8 kg
[~2017-12-05 11:37] MED LIST changes: -500ML BSS 0.3ML EPI 1:1000PF IRRIG ONE; -ACETAMINOPHEN 325 MG TAB PO PRN; -AMVISC PLUS 0.8ML SYRINGE INT OCU ONE; -ATROPINE SULFATE 0.1 MG/ML 5ML SYR IV PRN; -AcetaZOLAMIDE 250 MG TAB PO SCH; -BETAXOLOL HCL 0.25% OP SUSP PER DROP CHARGE OPL SCH; -BRIMONIDINE TART 0.2% OP SOLN PER DROP CHARGE ONE; -BSS FLUSH ONE; -ENDOCOAT 0.85ML SYRINGE INT OCU ONE; -EpHEDrine SULFATE INJ 50 MG/ML AMP IV PRN; -EpINEphrine INJ 1MG/ML AMP 1 MG/ML AMP ONE; -FENTANYL CITRATE INJ 50 MCG/1 ML 2 ML VIAL IV PRN; -FLUMAZENIL 0.1 MG/1 ML 10 ML VIAL IV PRN; -HYDROmorphone INJ 2 MG/ML SYR/VIAL IV PRN; -LABETALOL HCL IV 5 MG/ML 20ML IV PRN; -LACTATED RINGER'S 1000ML 500 ML IV SCH; -LIDOCAINE 4% OP SOLN DROP CHARGE ONE; -LIDOCAINE 4% OP SOLN DROP CHARGE OPL SCH; -LIDOCAINE HCL 1% MPF 2 ML VIAL ONE; -MEPERIDINE HCL 25 MG/ML CARP IV PRN; -MIDAZOLAM HCL 1 MG/ML 2ML VIAL ONE; -MIX: 4ML BSS 1ML EPI 1:1000 PF INSTIL ONE; -MOXIFLOXACIN OPH SOLN PER DROP CHARGE ONE; -NALOXONE HCL 0.4 MG/1 ML VIAL/CARP IV PRN; -OCUCOAT 1 ML SOLN IO ONE; -ONDANSETRON INJ 2 MG/ML 2 ML VIAL IV PRN; -PHENYLEPHRINE 100MCG/ML 5ML SYR IV PRN; -POVIDONE-IODINE OP SOLN 30 ML BTL ONE; -PROPARACAINE 0.5% OP SOLN PER DROP CHARGE OPL SCH; -TOBRAMYCIN/DEXAMETHASONE OPH OINT PER APPLN CHARGE ONE
--- NOTE | 2017-12-05 12:07 | EMERGENCY ROOM VISIT NOTE ---
History Report prepared by Mark: Eugene Lee Under the Supervision of: Dr. Malissa Castillo M.D. First contact with patient: 11:46 Chief Complaint: DIZZY Stated Complaint: DOUBLE VISION,DIZZY PAIN ABOVE EYE History of Present Illness The patient is an 82 year old female who presents to the Emergency Room with complaints of worsening double vision that started 4 days ago. She states that she is seeing "2 of everything". She adds that the double vision and pain above her left eye worsened yesterday. The patient states that starting 2 days ago, her left eye has been turning inward, and per the patient's family, that eye movement is new. Per the patient's family, the patient had cataract surgery in September. The patient states that she is not currently taking any blood thinners. She denies any speech difficulties. Any worsening confusion or trouble finding words were denied on behalf of the patient. Source of History: patient, family Onset: 4 days ago Position: eye (bilateral) Symptom Intensity: seeing 2 of everything Quality: other (double vision) Timing: worsening Note: Associated symptoms: Pain above left eye. Left eye turning inward. Denies speech difficulties. Confusion or trouble finding words denied. Review of Systems See HPI for pertinent positives & negatives. A total of 10 systems reviewed and were otherwise negative. Past Medical & Surgical Medical Problems: (1) Benign hypertension (2) CAD (coronary artery disease) (3) Chronic back pain (4) Diplopia, left medial gaze (5) Hypokalemia (6) Hypothyroidism (7) LDH (8) Osteoarthritis (9) Pneumonia (10) TIA (transient ischemic attack) Family History No pertinent family history Social History Smoking Status: Never Smoker Drug Use: none Marital Status: Occupation Status: retired Current/Historical Medications Scheduled Aspirin (Aspirin Chewable), 81 MG PO DAILY Atorvastatin (Lipitor), 40 MG PO HS Cholecalciferol (Vitamin D 1000 Unit), 2,000 INTER.UNIT PO QAM Isosorbide Mononitrate Ext Rel (Imdur Ext Rel), 60 MG PO QAM Levothyroxine Sodium (Levothyroxine Sodium), 100 MCG PO QAM Metoprolol Succinate (Metoprolol Succinate ER), 50 MG PO QAM Multiple Vitamins W/ Minerals (Womens One Daily), 1 TAB PO DAILY Multiple Vitamins W/ Minerals (Ocuvite Adult 50+), 1 CAP PO DAILY Nitroglycerin (Nitrostat), 0.4 MG UT PRN Riboflavin (Vitamin B-2), 400 MG PO QAM Scheduled PRN Acetaminophen (Tylenol), 1,000 MG PO QID PRN for Pain Albuterol Hfa (Ventolin Hfa), 2 PUFFS INH QID PRN for Shortness of Breath Meclizine Hcl (Meclizine Hcl), 25 MG PO TID PRN for Dizziness or Vertigo Allergies Coded Allergies: Penicillins (Verified Allergy, Unknown, RASH, 12/05/17) Cortisone (Verified Adverse Reaction, Unknown, REDNESS AND RED NOSE, ) Physical Exam Vital Signs Date Time Temp Pulse Resp B/P (MAP) Pulse Ox O2 Delivery O2 Flow Rate FiO2 12/05/17 13:37 66 20 154/90 97 Room Air 12/05/17 12:02 66 12/05/17 11:40 36.8 62 20 137/82 98 Room Air Physical Exam Vital signs reviewed. General: Well-appearing 82 year old female, in no significant distress. HEENT: Edentulous. On extraocular muscles, left eye has medial deviation that is exaggerated, no difficulty with lateral movements. The right eye has lateral deviation which is restricted, otherwise full range of motion. Neck supple. Atraumatic. Cardiovascular: Regular rate and rhythm, no extra sounds. Pulmonary: Clear to auscultation bilaterally, normal work of breathing. Abdomen: Soft, nontender, nondistended, positive bowel sounds. Musculoskeletal: Atraumatic, no peripheral edema. Neurologic: Patient awake alert and oriented x 3, full strength in all 4 extremities. EOM as above, cranial nerves otherwise intact. Skin: Warm, dry, no rash Medical Decision & Procedures ER Provider Diagnostic Interpretation: Radiology results as stated below per my review and radiologist interpretation: CT SCAN OF THE BRAIN WITHOUT IV CONTRAST CLINICAL HISTORY: Diplopia. Strokelike symptoms. COMPARISON STUDY: CT of the brain dated 11/03/2016. TECHNIQUE: Unenhanced axial CT scan of the brain is performed from the vertex to the skull base. A dose lowering technique was utilized adhering to the principles of ALARA. CT DOSE: 844.54 mGycm FINDINGS: Brain parenchyma: There are age-related involutional changes noting mild subcortical and periventricular microangiopathic change. There is no hemorrhage, mass effect, or evidence of acute territorial ischemia by CT criteria. Freitas-white matter is preserved. No extra-axial fluid collection is seen. Ventricles, sulci, cisterns: Prominent secondary to involutional change. Intracranial vasculature: There is atherosclerotic calcification of the cavernous carotid arteries. Calvarium: Unremarkable. Sinuses and mastoids: The visualized paranasal sinuses are clear. The mastoid air cells are well pneumatized. Orbits: The bony orbits are grossly intact. There are bilateral ocular lens implants. IMPRESSION: There is no hemorrhage, mass effect, or evidence of acute territorial ischemia by CT criteria. Electronically signed by: Erik To M.D. 12/05/2017 12:33 PM Dictated Date/Time: 12/05/2017 12:31 PM SINGLE VIEW CHEST CLINICAL HISTORY: Strokelike symptoms. FINDINGS: An AP, portable, upright chest radiograph is compared to study dated 05/05/2017 and correlated with chest CT dated 01/25/2014. The heart is enlarged and there is atherosclerotic calcification of the thoracic aorta. The pulmonary vasculature is noncongested. Chronic residual thickening is similar to previous. There is left basilar atelectasis. The lungs and pleural spaces are otherwise clear. No pneumothorax is seen. The skeletal structures are osteopenic. Arthritic change and calcified joint bodies are present in the left shoulder. IMPRESSION: Cardiomegaly with no acute cardiopulmonary abnormality. Electronically signed by: Erik To M.D. 12/05/2017 1:52 PM Dictated Date/Time: 12/05/2017 1:51 PM Laboratory Results 12/05/17 11:57 Red Blood Count 4.40, Mean Corpuscular Volume 89.3, Mean Corpuscular Hemoglobin 31.4, Mean Corpuscular Hemoglobin Concent 35.1, Mean Platelet Volume 10.7, Neutrophils (%) (Auto) 53.4, Lymphocytes (%) (Auto) 32.7, Monocytes (%) (Auto) 10.3, Eosinophils (%) (Auto) 2.8, Basophils (%) (Auto) 0.6, Neutrophils # (Auto ) 3.49, Lymphocytes # (Auto) 2.13, Monocytes # (Auto) 0.67, Eosinophils # (Auto ) 0.18, Basophils # (Auto) 0.04 12/05/17 11:57 Test 12/05/17 11:57 White Blood Count 6.52 K/uL (4.8-10.8) Red Blood Count 4.40 M/uL (4.2-5.4) Hemoglobin 13.8 g/dL (12.0-16.0) Hematocrit 39.3 % (37-47) Mean Corpuscular Volume 89.3 fL (80-100) Mean Corpuscular Hemoglobin 31.4 pg (25-34) Mean Corpuscular Hemoglobin Concent 35.1 g/dl (32-36) Platelet Count 170 K/uL (130-400) Mean Platelet Volume 10.7 fL (7.4-10.4) Neutrophils (%) (Auto) 53.4 % Lymphocytes (%) (Auto) 32.7 % Monocytes (%) (Auto) 10.3 % Eosinophils (%) (Auto) 2.8 % Basophils (%) (Auto) 0.6 % Neutrophils # (Auto) 3.49 K/uL (1.4-6.5) Lymphocytes # (Auto) 2.13 K/uL (1.2-3.4) Monocytes # (Auto) 0.67 K/uL (0.11-0.59) Eosinophils # (Auto) 0.18 K/uL (0-0.5) Basophils # (Auto) 0.04 K/uL (0-0.2) RDW Standard Deviation 41.0 fL (36.4-46.3) RDW Coefficient of Variation 12.6 % (11.5-14.5) Immature Granulocyte % (Auto) 0.2 % Immature Granulocyte # (Auto) 0.01 K/uL (0.00-0.02) Anion Gap 9.0 mmol/L (3-11) Est Creatinine Clear Calc Drug Dose 69.1 ml/min Estimated GFR () 94.6 Estimated GFR (Non- 81.6 BUN/Creatinine Ratio 24.7 (10-20) Calcium Level 9.6 mg/dl (8.5-10.1) Magnesium Level 2.2 mg/dl (1.8-2.4) Total Bilirubin 0.7 mg/dl (0.2-1) Direct Bilirubin 0.2 mg/dl (0-0.2) Aspartate Amino Transf (AST/SGOT) 22 U/L (15-37) Alanine Aminotransferase (ALT/SGPT) 22 U/L (12-78) Alkaline Phosphatase 125 U/L (45-117) Total Creatine Kinase 61 U/L (26-192) Creatine Kinase MB 1.9 ng/ml (0.5-3.6) Creatine Kinase MB Ratio 3.1 (0-3.0) Troponin I < 0.015 ng/ml (0-0.045) Total Protein 7.0 gm/dl (6.4-8.2) Albumin 3.7 gm/dl (3.4-5.0) Lyme Disease IgG Antibody NEG (NEG) Laboratory results per my review. ECG Indication: weakness Rate (beats per minute): 57 Rhythm: sinus bradycardia Findings: 1st degree AV block, LBBB, no acute ischemic change Comparison ECG Date: OH interval has increased compared to 05/05/17 ED Course 1200: Past medical records reviewed. The patient was evaluated in room C7. A complete history and physical examination was performed. 1405: I reviewed the patient's case with Dr. Chrystal ESPINOSA price accuracy supervisor. He will evaluate the patient for further management. 1408: Upon reevaluation, the patient is resting comfortably. I discussed laboratory and radiographic results with her. She verbalized agreement of the treatment plan. The patient will be evaluated for further management and care. Medical Decision Differential diagnosis: Etiologies such as~a trauma, corneal abrasion, corneal ulcer, foreign body, globe penetration, hyphema, hypopyon, and orbital cellulitis, periorbital cellulitis, as well as others were entertained. This patient was evaluated and appeared to be in no significant distress. Physical examination is concerning for extraocular muscle disruption. It seems that the left eye has a tendency to medial deviation however the lateral movement is not restricted. Patient is complaining of diplopia. The CT scan of the head was performed and is negative. Laboratory work is fairly unrevealing. It is unclear at this point if this represents an ischemic event or infectious pathology. Underlying demyelinating process is certainly possible. Given the patient's advanced age and findings, the internal medicine service was contacted for further management. Medication Reconcilliation Current Medication List: was personally reviewed by me Blood Pressure Screening Patient's blood pressure: Elevated blood pressure Blood pressure disposition: Elevated BP felt to be situational Consults Time Called: 1400 Consulting Physician: Dr. Chrystal ESPINOSA price accuracy supervisor Returned Call: [phone] I reviewed the patient's case with Dr. Chrystal ESPINOSA price accuracy supervisor. He will evaluate the patient for further management. Impression Primary Impression: Cranial nerve palsy Scribe Attestation The scribe's documentation has been prepared under my direction and personally reviewed by me in its entirety. I confirm that the note above accurately reflects all work, treatment, procedures, and medical decision making performed by me. Departure Information Dispostion Being Evaluated By Hospitalist Referrals Parul Pulliam PA-C (PCP) Patient Instructions My [facility]
[2017-12-05 12:10] VITALS: Ht 165.1 cm; Wt 83.8 kg
--- NOTE | 2017-12-05 12:34 | DIAGNOSTIC IMAGING REPORT ---
CT SCAN OF THE BRAIN WITHOUT IV CONTRAST CLINICAL HISTORY: Diplopia. Strokelike symptoms. COMPARISON STUDY: CT of the brain dated 11/03/2016. TECHNIQUE: Unenhanced axial CT scan of the brain is performed from the vertex to the skull base. A dose lowering technique was utilized adhering to the principles of ALARA. CT DOSE: 844.54 mGycm FINDINGS: Brain parenchyma: There are age-related involutional changes noting mild subcortical and periventricular microangiopathic change. There is no hemorrhage, mass effect, or evidence of acute territorial ischemia by CT criteria. Freitas-white matter is preserved. No extra-axial fluid collection is seen. Ventricles, sulci, cisterns: Prominent secondary to involutional change. Intracranial vasculature: There is atherosclerotic calcification of the cavernous carotid arteries. Calvarium: Unremarkable. Sinuses and mastoids: The visualized paranasal sinuses are clear. The mastoid air cells are well pneumatized. Orbits: The bony orbits are grossly intact. There are bilateral ocular lens implants. IMPRESSION: There is no hemorrhage, mass effect, or evidence of acute territorial ischemia by CT criteria. Electronically signed by: Erik To M.D. 12/05/2017 12:33 PM Dictated Date/Time: 12/05/2017 12:31 PM
[2017-12-05] MEDS ORDERED: ASPCH81X PO (13:12)
[2017-12-05] MEDS ORDERED: MULT-240 PO (13:17)
[2017-12-05] MEDS ORDERED: MULTCAP94 PO (13:17)
[2017-12-05 13:37] LABS: BASO % 0.6 %; BASO ABS # 0.04 K/uL (0-0.2); EOS % 2.8 %; EOS ABS # 0.18 K/uL (0-0.5); HEMATOCRIT 39.3 % (37-47); HEMOGLOBIN 13.8 g/dL (12.0-16.0); IG# 0.01 K/uL (0.00-0.02); LYMPH % 32.7 %; LYMPH ABS # 2.13 K/uL (1.2-3.4); MEAN CELL VOLUME 89.3 fL (80-100); MEAN CORPUSCULAR HEMOGLOBIN 31.4 pg (25-34); MEAN CORPUSCULAR HGB CONC 35.1 g/dl (32-36); MEAN PLATELET VOLUME 10.7 fL (7.4-10.4); MONO % 10.3 %; MONO ABS # 0.67 K/uL (0.11-0.59); NEUT % 53.4 %; NEUT ABS # 3.49 K/uL (1.4-6.5); PLATELET COUNT 170 K/uL (130-400); RED CELL DISTRIBUTION WIDTH CV 12.6 % (11.5-14.5); WHITE BLOOD COUNT 6.52 K/uL (4.8-10.8)
[2017-12-05 13:45] LABS: ALBUMIN 3.7 gm/dl (3.4-5.0); ALT/SGPT 22 U/L (12-78); AST/SGOT 22 U/L (15-37); BLOOD UREA NITROGEN 17 mg/dl (7-18); CALCIUM 9.6 mg/dl (8.5-10.1); CARBON DIOXIDE 25 mmol/L (21-32); CREATININE 0.69 mg/dl (0.60-1.20); GLUCOSE 97 mg/dl (70-99); POTASSIUM 4.1 mmol/L (3.5-5.1); SODIUM 138 mmol/L (136-145)
--- NOTE | 2017-12-05 13:53 | DIAGNOSTIC IMAGING REPORT ---
SINGLE VIEW CHEST CLINICAL HISTORY: Strokelike symptoms. FINDINGS: An AP, portable, upright chest radiograph is compared to study dated 05/05/2017 and correlated with chest CT dated 01/25/2014. The heart is enlarged and there is atherosclerotic calcification of the thoracic aorta. The pulmonary vasculature is noncongested. Chronic residual thickening is similar to previous. There is left basilar atelectasis. The lungs and pleural spaces are otherwise clear. No pneumothorax is seen. The skeletal structures are osteopenic. Arthritic change and calcified joint bodies are present in the left shoulder. IMPRESSION: Cardiomegaly with no acute cardiopulmonary abnormality. Electronically signed by: Erik To M.D. 12/05/2017 1:52 PM Dictated Date/Time: 12/05/2017 1:51 PM
[2017-12-05 13:59] LABS: ALKALINE PHOSPHATASE 125 U/L (45-117); CKMB 1.9 ng/ml (0.5-3.6)
[2017-12-05] MEDS ORDERED: ACETAMINOPHEN 325 MG TAB PO PRN (15:30)
[2017-12-05] MEDS ORDERED: ACETAMINOPHEN 500 MG TAB PO PRN (15:30)
[2017-12-05] MEDS ORDERED: POLYETHYLENE (MIRALAX) 17 GM PACK PO PRN (15:30)
[2017-12-05] MEDS ORDERED: MECLIZINE HCL 12.5 MG TAB PO PRN (15:30)
[2017-12-05] MEDS ORDERED: ONDANSETRON INJ 2 MG/ML 2 ML VIAL IV PRN (15:30)
--- NOTE | 2017-12-05 16:18 | History and Physical ---
History & Physical Date & Time of Service: Dec 05, 2017 at 14:35 Chief Complaint: Double Vision,Dizzy Pain Above Eye Primary Care Physician: Parul Pulliam PA-C History of Present Illness This is an 82 yo M with PMHx of HTN, CAD, angina pectoris, HLD, hypothyroidism and obesity who presents with diplopia x 4 days which started last night. Pt reports initially it waxed and waned, but has remained constant for at least 1 day. She has developed a right sided frontal headache when this initially started. She reports that her family today noticed her left eye was turning inward, although she was not aware of this. When patient is asked to cover one eye at a time and focus on an object, she does not see double. She denies eye pain or discharge. She denies any issues with swallowing, speech, or weakness. The patient has a lisp with speech but reports this is chronic and unchanged. She lives alone at home, and reports having some difficulty ambulating due to diplopia alone, and again denies weakness or falls. She had taken several doses of meclizine which did not significantly improve her symptoms, last dose was last night. The patient notes ~1 week ago she had the GI flu with nausea/vomiting and diarrhea, this is since resolved. Pt had cataract surgery on both eyes in the past: the right was 6 years ago, and her left was recently operated on in [address] Wild at [facility]. She required multiple checks for the left eye, although cannot provide specific details about why. She has not had any bouts of diplopia before. Pt currently reports having bilateral frontal headache since having CT scan. CT of In the ER a CT head was negative for acute stroke. Will obtain an MRI of the brain to r/o focal stroke. VSS. Labs are WNL. Past Medical/Surgical History Medical Problems: (1) Benign hypertension Status: Chronic (2) CAD (coronary artery disease) Status: Chronic (3) Chronic back pain Status: Chronic (4) Hypokalemia Status: Chronic (5) Hypothyroidism Status: Chronic (6) LDH Status: Chronic (7) Osteoarthritis Status: Chronic Family History No pertinent family history Social History Smoking Status: Never Smoker Smokeless Tobacco Use: No Alcohol Use: none Drug Use: none Marital Status: Housing status: lives alone Occupational Status: retired Multi-Drug Resistant Organisms History of MDRO: No Allergies Coded Allergies: Penicillins (Verified Allergy, Unknown, RASH, 12/05/17) Cortisone (Verified Adverse Reaction, Unknown, REDNESS AND RED NOSE, ) Home Medications Scheduled Aspirin (Aspirin Chewable), 81 MG PO DAILY Atorvastatin (Lipitor), 40 MG PO HS Cholecalciferol (Vitamin D 1000 Unit), 2,000 INTER.UNIT PO QAM Isosorbide Mononitrate Ext Rel (Imdur Ext Rel), 60 MG PO QAM Levothyroxine Sodium (Levothyroxine Sodium), 100 MCG PO QAM Metoprolol Succinate (Metoprolol Succinate ER), 50 MG PO QAM Multiple Vitamins W/ Minerals (Womens One Daily), 1 TAB PO DAILY Multiple Vitamins W/ Minerals (Ocuvite Adult 50+), 1 CAP PO DAILY Nitroglycerin (Nitrostat), 0.4 MG UT PRN Riboflavin (Vitamin B-2), 400 MG PO QAM Scheduled PRN Acetaminophen (Tylenol), 1,000 MG PO QID PRN for Pain Albuterol Hfa (Ventolin Hfa), 2 PUFFS INH QID PRN for Shortness of Breath Meclizine Hcl (Meclizine Hcl), 25 MG PO TID PRN for Dizziness or Vertigo Review of Systems Constitutional: No fever, No chills, No sweats, No weakness, No fatigue Eyes: + worsening of vision, + diplopia ENT: No sore throat, No tinnitus, No trouble swallowing Respiratory: No cough, No sputum, No wheezing, No shortness of breath, No dyspnea on exertion Cardiovascular: No chest pain, No edema, No palpitations Abdomen: No pain, No nausea, No vomiting, No diarrhea, No constipation Musculoskeletal: No joint pain, No swelling, No calf pain Genitourinary - Female: + urinary incontinence, No dysuria Neurologic: No memory loss, No numbness/tingling, No balance problems Psychiatric: No depression symptoms, No anxiety Endocrine: No fatigue Integumentary: No rash, No itch Physical Exam Vital Signs Date Time Temp Pulse Resp B/P (MAP) Pulse Ox O2 Delivery O2 Flow Rate FiO2 12/05/17 13:37 66 20 154/90 97 Room Air 12/05/17 12:02 66 12/05/17 11:40 36.8 62 20 137/82 98 Room Air General Appearance: WD/WN, no apparent distress, + obese Head: normocephalic, atraumatic Eyes: + pertinent finding (+ left eye with medial gaze at rest, EOMI, + peripheral vision is diminished in all siegel on the left, + pupil dilation of the left eye measuring ~3 compared with the right which is a 1. Both pupils are reactive to light. Opthalmic examination reveals + red reflex bilat, + bulging retinal arteries in the left eye and possible hemorrhage.) ENT: hearing grossly normal, pharynx normal, + pertinent finding (MMM, endentulous, enlarged tongue ) Neck: supple, no JVD Respiratory/Chest: lungs clear, no respiratory distress, no accessory muscle use Cardiovascular: regular rate, rhythm, no edema, normal peripheral pulses, + systolic murmur (grade II/) Abdomen/GI: normal bowel sounds, non tender, soft Back: normal inspection Extremities/Musculoskelatal: no calf tenderness, no pedal edema, normal range of motion Neurologic/Psych: bottle gauger II-XII nml as tested (gait not assessed due to diplopia) , alert, normal mood/affect, oriented x 3 Skin: normal color, warm/dry Diagnostics Laboratory Results Results Past 24 Hours Test 12/05/17 11:57 Range/Units White Blood Count 6.52 4.8-10.8 K/uL Red Blood Count 4.40 4.2-5.4 M/uL Hemoglobin 13.8 12.0-16.0 g/dL Hematocrit 39.3 37-47 % Mean Corpuscular Volume 89.3 80-100 fL Mean Corpuscular Hemoglobin 31.4 25-34 pg Mean Corpuscular Hemoglobin Concent 35.1 32-36 g/dl Platelet Count 170 130-400 K/uL Mean Platelet Volume 10.7 7.4-10.4 fL Neutrophils (%) (Auto) 53.4 % Lymphocytes (%) (Auto) 32.7 % Monocytes (%) (Auto) 10.3 % Eosinophils (%) (Auto) 2.8 % Basophils (%) (Auto) 0.6 % Neutrophils # (Auto) 3.49 1.4-6.5 K/uL Lymphocytes # (Auto) 2.13 1.2-3.4 K/uL Monocytes # (Auto) 0.67 0.11-0.59 K/uL Eosinophils # (Auto) 0.18 0-0.5 K/uL Basophils # (Auto) 0.04 0-0.2 K/uL RDW Standard Deviation 41.0 36.4-46.3 fL RDW Coefficient of Variation 12.6 11.5-14.5 % Immature Granulocyte % (Auto) 0.2 % Immature Granulocyte # (Auto) 0.01 0.00-0.02 K/uL Sodium Level 138 136-145 mmol/L Potassium Level 4.1 3.5-5.1 mmol/L Chloride Level 104 98-107 mmol/L Carbon Dioxide Level 25 21-32 mmol/L Anion Gap 9.0 3-11 mmol/L Blood Urea Nitrogen 17 7-18 mg/dl Creatinine 0.69 0.60-1.20 mg/dl Est Creatinine Clear Calc Drug Dose 69.1 ml/min Estimated GFR () 94.6 Estimated GFR (Non- 81.6 BUN/Creatinine Ratio 24.7 10-20 Random Glucose 97 70-99 mg/dl Calcium Level 9.6 8.5-10.1 mg/dl Magnesium Level 2.2 1.8-2.4 mg/dl Total Bilirubin 0.7 0.2-1 mg/dl Direct Bilirubin 0.2 0-0.2 mg/dl Aspartate Amino Transf (AST/SGOT) 22 15-37 U/L Alanine Aminotransferase (ALT/SGPT) 22 12-78 U/L Alkaline Phosphatase 125 45-117 U/L Total Creatine Kinase 61 26-192 U/L Creatine Kinase MB 1.9 0.5-3.6 ng/ml Creatine Kinase MB Ratio 3.1 0-3.0 Troponin I < 0.015 0-0.045 ng/ml Total Protein 7.0 6.4-8.2 gm/dl Albumin 3.7 3.4-5.0 gm/dl Diagnostic Radiology CT SCAN OF THE BRAIN WITHOUT IV CONTRAST CLINICAL HISTORY: Diplopia. Strokelike symptoms. COMPARISON STUDY: CT of the brain dated 11/03/2016. TECHNIQUE: Unenhanced axial CT scan of the brain is performed from the vertex to the skull base. A dose lowering technique was utilized adhering to the principles of ALARA. CT DOSE: 844.54 mGycm FINDINGS: Brain parenchyma: There are age-related involutional changes noting mild subcortical and periventricular microangiopathic change. There is no hemorrhage, mass effect, or evidence of acute territorial ischemia by CT criteria. Freitas-white matter is preserved. No extra-axial fluid collection is seen. Ventricles, sulci, cisterns: Prominent secondary to involutional change. Intracranial vasculature: There is atherosclerotic calcification of the cavernous carotid arteries. Calvarium: Unremarkable. Sinuses and mastoids: The visualized paranasal sinuses are clear. The mastoid air cells are well pneumatized. Orbits: The bony orbits are grossly intact. There are bilateral ocular lens implants. IMPRESSION: There is no hemorrhage, mass effect, or evidence of acute territorial ischemia by CT criteria. Electronically signed by: Erik To M.D. 12/05/2017 12:33 PM Dictated Date/Time: 12/05/2017 12:31 PM The status of this report is Signed. SINGLE VIEW CHEST CLINICAL HISTORY: Strokelike symptoms. FINDINGS: An AP, portable, upright chest radiograph is compared to study dated 05/05/2017 and correlated with chest CT dated 01/25/2014. The heart is enlarged and there is atherosclerotic calcification of the thoracic aorta. The pulmonary vasculature is noncongested. Chronic residual thickening is similar to previous. There is left basilar atelectasis. The lungs and pleural spaces are otherwise clear. No pneumothorax is seen. The skeletal structures are osteopenic. Arthritic change and calcified joint bodies are present in the left shoulder. IMPRESSION: Cardiomegaly with no acute cardiopulmonary abnormality. Electronically signed by: Erik To M.D. 12/05/2017 1:52 PM Dictated Date/Time: 12/05/2017 1:51 PM The status of this report is Signed. EKG Sinus bradycardia with 1st degree A-V block Left bundle branch block Abnormal ECG When compared with ECG of 05-MAY-2017 13:23, IA interval has increased Vent. rate 57 BPM IA interval 216 ms QRS duration 130 ms QT/QTc 516/502 ms P-R-T axes 72 25 67 Impression Assessment and Plan This is an 82 yo M with PMHx of HTN, CAD, angina pectoris, HLD, obesity who presents with diplopia x 4 days which started last night. Pt reports initially it waxed and waned, but has remained constant for at least 1 day, + headache and left eye inward gaze. 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 - Checking echo and carotid ultrasound - Consult ophthalmology and neurology - PT/OT consulted - Lyme IgG equivocal, and will await western blot results- It is possible that this is a rare form of Lymes disease with isolated paralytic strabismus which has directly influenced CN6. CAD, HTN, HLD - Continue home medications including asa 81 mg, metoprolol succ 50 mg QAm, Imdur 60 mg Qam, atorvastatin 40 mg QHS - Follows with Dr. Zavala as an outpt. Hypothyroidism - Continue levothyroxine 100 mcg daily DVT ppx: teds, scds, holding chemical anticoagulation at this time Disposition: From home, lives alone Level of Care Telemetry Advanced Directives Existing Advance Directive: Yes Existing Living Will: Yes Existing Power of Level Vial Marker: Yes Existing Health Care Proxy: Yes Resuscitation Status DO NOT RESUSCITATE VTE Prophylaxis VTE Risk Assessment Done? Y/N: Yes Risk Level: Low Given or contraindicated: T.E.D. Stockings, SCD's Note Attending Attestation & Admission Note: Pt seen/examined, chart reviewed, care plan d/w VELIA Blas. I agree w/ the gonsalez components of her admission documentation. 82yo female with h/o HTN, hypothyroidism, and CAD who presented with double vision in the absence of other neurological symptoms for several days. Has never been told that she has strabismus. Has had cataract surgery in the past but this was months ago. Apparently had a GI illness last week but this has fully resolved. Reports right frontal headache. No recent h/o tick bites. PMH, PSH, allergies, meds, sochx, famxh, ros - reviewed gen - NAD neck - bruit on left, none on right face - no droop eyes - left pupil slightly larger than right pupil but both reactive; RIGHT 6TH NERVE PALSY WITH LATERAL GAZE; question of true esotropia on left vs pseudoesotropia; HOWEVER, the left eye can be fully adducted and abducted heart - RRR, s1, s2, 1/6 CRYSTAL LSB lungs - CTA b/l abd - soft ext - no edema neuro - CN 3-12 intact except RIGHT 6th nerve palsy strength 5/5 x 4 exts DTRs 2+ b/l finger/nose/finger maneuver b/l arms w/o dysmetria A/P: diplopia, 2nd to right 6th nerve palsy. esotropia of left eye vs pseudoesotropia?? equivocal IgM lyme's test. HTN. Hypothyroidism - no documented TSH since 2008 (?). CAD but w/o ischemic changes. spoke with Dr. Catalan who will consult in AM. agree with ophtho consult either in house or outpatient. in rare event this is lyme's affecting her 6th CN will cover w/ rocephin 2gm daily. otherwise this may be a tiny brainstem stroke affecting the right 6th CN. if so then would substitute plavix for asa. check carotids, MRI brain, and echo. check TSH in am. Brandy WU MD
--- NOTE | 2017-12-05 16:44 | DIAGNOSTIC IMAGING REPORT ---
MRI OF THE BRAIN WITHOUT AND WITH IV CONTRAST CLINICAL HISTORY: Diplopia, Left medial gaze COMPARISON STUDY: 11/03/2016, noncontrast head CT dated 12/05/2017. TECHNIQUE: MRI of the brain was performed from the vertex to the skull base utilizing various T1 and T2 weighted sequences. Following the IV administration of 8.7 mL of Gadavist contrast, additional enhanced images were obtained. FINDINGS: Sagittal T1, axial diffusion, proton density and T2 weighted axial, coronal FLAIR, and pre and post axial T1-weighted images were acquired. These were supplemented with post gadolinium coronal T1 weighted images. No intra or extra-axial mass lesions are visualized. Axial diffusion-weighted images reveal no evidence of acute or subacute infarction. There is no evidence of ventricular dilatation. Proton density T2-weighted and FLAIR images reveal scattered foci of increased T2 signal within the white matter, likely on a small vessel basis. There are no abnormal flow voids. There is no evidence of pathologic enhancement. IMPRESSION: 1. No acute intracranial findings 2. No evidence of intracranial mass. No evidence of acute or subacute infarction 3. Foci of increased T2 signal within the white matter, similar to the prior study and likely on a small vessel basis. Electronically signed by: Juan Caruso M.D. 12/05/2017 4:42 PM Dictated Date/Time: 12/05/2017 4:40 PM
--- NOTE | 2017-12-05 17:20 | DIAGNOSTIC IMAGING REPORT ---
ULTRASOUND OF THE CAROTID ARTERIES CLINICAL HISTORY: possible stroke COMPARISON STUDY: 11/03/2016 TECHNIQUE: Real-time, grayscale, and color Doppler sonography of the carotid arteries was performed. Imaging reviewed in the transverse and longitudinal planes. NASCET criteria was utilized for stenosis calcification. FINDINGS: There is minimal atherosclerotic plaque present . The peak systolic velocity within the right internal carotid artery is 77 cm/sec. The systolic velocity ratio of right internal to common carotid artery is 1.3. The peak systolic velocity within the left internal carotid artery is 88 cm/sec. The systolic velocity ratio left internal to common carotid artery is 1.3. Antegrade flow is seen in the vertebral arteries. The external carotid arteries are patent. IMPRESSION: No evidence of hemodynamically significant carotid stenosis. Electronically signed by: Juan Caruso M.D. 12/05/2017 5:18 PM Dictated Date/Time: 12/05/2017 5:17 PM
[2017-12-05] MEDS: CEFTRIAXONE SOD INJ 2,000 MG in DEXTROSE 5% 50ML 50 ML IV SCH (18:00)
[2017-12-05 20:00] VITALS: BP 156/79; PULSE 71; TEMP 36.9; O2SAT 95
[2017-12-05] MEDS: ATORVASTATIN 40 MG TAB PO SCH (21:05)
[2017-12-05 23:20] VITALS: BP 144/77; PULSE 69; TEMP 36.8; O2SAT 95
[2017-12-06] VITALS (8 sets, daily range): BP systolic 115–128; BP diastolic 67–80; PULSE 71–79; TEMP 36.9–37.2; O2SAT 93–98
[2017-12-06 05:50] LABS: BASO % 0.9 %; BASO ABS # 0.05 K/uL (0-0.2); EOS % 2.6 %; EOS ABS # 0.15 K/uL (0-0.5); HEMATOCRIT 38.5 % (37-47); IG# 0.01 K/uL (0.00-0.02); LYMPH % 34.6 %; LYMPH ABS # 1.99 K/uL (1.2-3.4); MEAN CELL VOLUME 89.1 fL (80-100); MEAN CORPUSCULAR HEMOGLOBIN 30.1 pg (25-34); MEAN CORPUSCULAR HGB CONC 33.8 g/dl (32-36); MEAN PLATELET VOLUME 9.9 fL (7.4-10.4); MONO % 11.3 %; MONO ABS # 0.65 K/uL (0.11-0.59); NEUT % 50.4 %; PLATELET COUNT 138 K/uL (130-400); RED CELL DISTRIBUTION WIDTH CV 12.5 % (11.5-14.5); RED CELL DISTRIBUTION WIDTH SD 40.8 fL (36.4-46.3); WHITE BLOOD COUNT 5.75 K/uL (4.8-10.8)
[2017-12-06] MEDS: LEVOTHYROXINE 100 MCG TAB PO SCH (06:07)
[2017-12-06 07:03] LABS: HEMOGLOBIN A1C 6.2 % (4.5-5.6)
[2017-12-06] MEDS ORDERED: PERFLUTREN LIPID MICROSPHERE (DEFINITY) IV ONE (08:07)
--- NOTE | 2017-12-06 08:36 | Neurology Consultation ---
Neurology Consultation Date of Consultation: Dec 06, 2017. Attending Physician: Felipe Angeles MD, PhD Primary Care Physician: Parul Pulliam PA-C Reason for Consultation: Patient is an 82-year-old, was asked to see the request of Dr. Jarrell, for neurologic consultation regarding acute onset diplopia History of Present Illness Source: patient, caregiver, clinic records, hospital records Patient has a history of hypertension and coronary artery disease. She has been told she has borderline diabetes in the past. She has never had a history of stroke. She has been on 81 mg aspirin tablet daily. Patient was doing well when on the evening of December 01, while watching TV, she had the sudden onset of double vision. She noted a little bit of pain around the right eye and a little bit of lightheadedness. The next day she felt a little bit better although she did have double vision. It was worse and unchanging December 03 and . She resisted going to the emergency room at that time. On the morning of December 05, when she realized she still had the significant double vision she came to the emergency room. She continued to have some nonspecific pain around the right eye which might wax and wane some. There was no other headache pain. She had no neck pain, new weakness or numbness, confusion or speech problems. She arrived to the emergency room on December 05 at 1140 hours with a temperature of 36.8, pulse 62 and regular, respiratory rate 20, blood pressure 137 rate 82, and O2 saturation 98%. On exam she was described as having "left eye adduction and right eye abduction ". CT scan of the head was unremarkable with no acute changes. Chest x-ray showed some old cardiomegaly and no acute disease. Carotid ultrasound was unremarkable. CBC and Chem profile were largely unremarkable. Hemoglobin A1c was mildly elevated at 6.2. TSH was normal at 1.7 and fasting lipid profile was normal and she had a cholesterol of 113. Lyme antibody titer was equivocal. A Western blot is pending. MRI of the brain showed no acute stroke. There were no tumors in the brain stem or following cranial nerves and no enhancement was noted after contrast. The MRI did show some mild nonspecific generalized atrophy and scattered small vessel ischemic changes of an old nature. This morning, the patient has no eye pain or discomfort. She has double vision the same as before. She denies chest pain, shortness of breath, abdominal pain , incontinence of urine, confusion, speech problems, pain, weakness, or numbness. She has no nausea. She does have some gait problems because of the double vision Past Medical/Surgical History Medical Problems: (1) Altered mental status Status: Acute (2) Ataxia Status: Acute (3) Cranial nerve palsy Status: Acute (4) Headache Status: Acute (5) Stroke-like symptoms Status: Acute Acute diplopia Hypertension Coronary artery disease History of hypothyroidism History of bilateral cataract surgery, right eye 6 years ago and left eye in September of 2017. History of D and C. 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 She never used tobacco products or smoked and did not use alcohol. [facility] but has never been treated for Lyme disease in the past. Smoking Status: Never smoker Smokeless Tobacco Use: No Alcohol Use: none Drug Use: none Marital Status: Occupation Status: retired Allergies Coded Allergies: Penicillins (Verified Allergy, Unknown, RASH, 12/05/17) Cortisone (Verified Adverse Reaction, Unknown, REDNESS AND RED NOSE, ) Current Inpatient Medications Current Inpatient Medications Medications (Trade) Dose Ordered Sig/Too Route Start Time Stop Time Status Last Admin Dose Admin Acetaminophen (Tylenol Tab) 650 mg Q4H PRN PO 12/05/17 15:30 01/04/18 15:29 Ondansetron HCl (Zofran Inj) 4 mg Q6H PRN IV 12/05/17 15:30 01/04/18 15:29 Polyethylene (Miralax Powder Packet) 17 gm DAILY PRN PO 12/05/17 15:30 01/04/18 15:29 Aspirin (Ecotrin Tab) 81 mg DAILY PO 12/06/17 09:00 01/05/18 08:59 Atorvastatin Calcium (Lipitor Tab) 40 mg HS PO 12/05/17 21:00 01/04/18 20:59 12/05/17 21:05 40 MG Cholecalciferol (Vitamin D Tab) 2,000 inter.unit QAM PO 12/06/17 09:00 01/05/18 08:59 Isosorbide Mononitrate (Imdur Ext Rel Tab) 60 mg QAM PO 12/06/17 09:00 2/15/18 08:59 Levothyroxine Sodium (Synthroid Tab) 100 mcg DAILYBB PO 12/06/17 06:30 01/05/18 06:59 12/06/17 06:07 100 MCG Meclizine HCl (Antivert Tab) 25 mg TID PRN PO 12/05/17 15:30 01/04/18 15:29 Metoprolol Succinate (Toprol Xl Tab) 50 mg QAM PO 12/06/17 09:00 01/05/18 08:59 Multivitamins/ Minerals (Multivitamin W/ Minerals Tab) 1 tab DAILY PO 12/06/17 09:00 01/05/18 08:59 Ceftriaxone Sodium 2000 mg/ Dextrose 70 ml @ 100 mls/hr Q24H IV 12/05/17 18:00 12/15/17 17:59 12/05/17 18:00 100 MLS/HR Clopidogrel Bisulfate (plAVix TAB) 75 mg QAM PO 12/06/17 09:00 01/05/18 08:59 Review of Systems Constitutional: No weakness, No fatigue Eyes: + diplopia, No worsening of vision, No eye pain ENT: No hearing loss, No tinnitus, No trouble swallowing Respiratory: No cough, No shortness of breath Cardiovascular: No chest pain, No palpitations Abdomen: No pain, No nausea Musculoskeletal: No joint pain, No muscle pain Genitourinary - Female: No dysuria, No urinary incontinence Neurologic: + balance problems, No memory loss, No weakness, No numbness/ tingling, No vertigo Psychiatric: No depression symptoms, No anxiety Endocrine: No fatigue Hematologic / Lymphatic: No abnormal bleeding/bruising Integumentary: No rash Allergic / Immunologic: No hives Physical Exam Vital Signs (Past 24 Hrs): Date Time Temp Pulse Resp B/P (MAP) Pulse Ox O2 Delivery O2 Flow Rate FiO2 12/06/17 04:00 37.0 74 18 127/74 (91) 94 Room Air 12/06/17 04:00 Room Air 12/06/17 00:00 Room Air 12/05/17 23:20 36.8 69 18 144/77 (99) 95 Room Air 12/05/17 20:00 Room Air 12/05/17 20:00 36.9 71 18 156/79 (104) 95 Room Air 12/05/17 16:00 66 20 151/92 95 Room Air 12/05/17 13:37 66 20 154/90 97 Room Air 12/05/17 12:02 66 12/05/17 11:40 36.8 62 20 137/82 98 Room Air Patient is right-handed. The patient is awake and alert. Speech is normal without aphasia or dysarthria. Mentation and thought processes are intact with orientation and normal fund of knowledge. Mood and affect are normal and appropriate. Appearance and grooming are normal. Long and short-term memory are intact. The discs are sharp with positive venous pulsations. There are no exudates, hemorrhages, or blood vessel changes seen. Pupils are 3-4mm bilaterally and reactive to light. Covering 1 eye at a time she has no double vision or blurry vision. Visual acuity and visual siegel seem normal grossly to confrontation. The patient has fairly conjugate gaze looking straight ahead with some mild double vision. When she looks to the left, eyes move well and she has no diplopia. She has good up and down gaze although this can create some diplopia to a mild degree. Looking to the right creates significant diplopia and she has an inability to abduct the right eye. Again, left eye has a full range of motion. There is no nystagmus. There are no deficits to sensation of the face bilaterally. Corneal reflexes are positive bilaterally. Facial strength and symmetry is normal bilaterally. Hearing seems intact grossly to voice and finger rub. Palate moves well without asymmetry. There is normal sternocleidomastoid and trapezius strength bilaterally. Tongue is midline with good strength bilaterally. Neck is with full range of motion without discomfort. There are no cervical bruits. There are no cranial or ocular bruits. Heart is without murmur. Cervical, thoracic, and lumbar spine are nontender to palpation. Gait is cautious because of her double vision but narrow based. Stance is good with feet together and eyes open. With outstretched arms there is no drift. There are no resting, postural, or action tremors. There is no ataxia with [id number] testing. There is good facility in the hands. There are no abnormal involuntary movements noted. Motor strength is 5/5 diffusely in the arms bilaterally including deltoids, biceps, brachioradialis, wrist flexors and extensors, stretcher operator, and intrinsic hand muscles. Motor strength is 5/5 diffusely in the legs bilaterally including hip flexors, quadriceps, hamstring, gastrocnemius, tibialis anterior, tibialis posterior, and peroneii muscles bilaterally. Toe extensors are normal and there is good bulk in the extensor digitorum brevis muscle bilaterally. The limbs have good tone without rigidity or spasticity, and there is no atrophy noted. Muscle bulk is normal, there is no tenderness, no myotonia noted to percussion, and no fasciculations seen. Sensory examination is intact to pin and touch throughout all four limbs. Reflexes are 1/4 in the biceps, triceps, brachioradialis, and quadriceps tendons bilaterally. Achilles tendon reflexes are absent bilaterally. Toes are downgoing with plantar stimulation bilaterally. Peripheral pulses are present and of normal quality distally in all four limbs. There is no peripheral edema noted. Laboratory Results Past 24 Hours: 12/06/17 05:30 Red Blood Count 4.32, Mean Corpuscular Volume 89.1, Mean Corpuscular Hemoglobin 30.1, Mean Corpuscular Hemoglobin Concent 33.8, Mean Platelet Volume 9.9, Neutrophils (%) (Auto) 50.4, Lymphocytes (%) (Auto) 34.6, Monocytes (%) (Auto) 11.3, Eosinophils (%) (Auto) 2.6, Basophils (%) (Auto) 0.9, Neutrophils # (Auto ) 2.90, Lymphocytes # (Auto) 1.99, Monocytes # (Auto) 0.65, Eosinophils # (Auto ) 0.15, Basophils # (Auto) 0.05 12/05/17 11:57 Test 12/05/17 11:57 12/06/17 05:30 Anion Gap 9.0 mmol/L (3-11) Est Creatinine Clear Calc Drug Dose 69.1 ml/min Estimated GFR () 94.6 Estimated GFR (Non- 81.6 BUN/Creatinine Ratio 24.7 (10-20) Calcium Level 9.6 mg/dl (8.5-10.1) Magnesium Level 2.2 mg/dl (1.8-2.4) Total Bilirubin 0.7 mg/dl (0.2-1) Direct Bilirubin 0.2 mg/dl (0-0.2) Aspartate Amino Transf (AST/SGOT) 22 U/L (15-37) Alanine Aminotransferase (ALT/SGPT) 22 U/L (12-78) Alkaline Phosphatase 125 U/L (45-117) Total Creatine Kinase 61 U/L (26-192) Creatine Kinase MB 1.9 ng/ml (0.5-3.6) Creatine Kinase MB Ratio 3.1 (0-3.0) Troponin I < 0.015 ng/ml (0-0.045) Total Protein 7.0 gm/dl (6.4-8.2) Albumin 3.7 gm/dl (3.4-5.0) Lyme Disease IgG Antibody NEG (NEG) White Blood Count 5.75 K/uL (4.8-10.8) Red Blood Count 4.32 M/uL (4.2-5.4) Hemoglobin 13.0 g/dL (12.0-16.0) Hematocrit 38.5 % (37-47) Mean Corpuscular Volume 89.1 fL (80-100) Mean Corpuscular Hemoglobin 30.1 pg (25-34) Mean Corpuscular Hemoglobin Concent 33.8 g/dl (32-36) Platelet Count 138 K/uL (130-400) Mean Platelet Volume 9.9 fL (7.4-10.4) Neutrophils (%) (Auto) 50.4 % Lymphocytes (%) (Auto) 34.6 % Monocytes (%) (Auto) 11.3 % Eosinophils (%) (Auto) 2.6 % Basophils (%) (Auto) 0.9 % Neutrophils # (Auto) 2.90 K/uL (1.4-6.5) Lymphocytes # (Auto) 1.99 K/uL (1.2-3.4) Monocytes # (Auto) 0.65 K/uL (0.11-0.59) Eosinophils # (Auto) 0.15 K/uL (0-0.5) Basophils # (Auto) 0.05 K/uL (0-0.2) RDW Standard Deviation 40.8 fL (36.4-46.3) RDW Coefficient of Variation 12.5 % (11.5-14.5) Immature Granulocyte % (Auto) 0.2 % Immature Granulocyte # (Auto) 0.01 K/uL (0.00-0.02) Prothrombin Time 10.6 SECONDS (9.0-12.0) Prothromb Time International Ratio 1.0 (0.9-1.1) Estimated Average Glucose 131 mg/dl Hemoglobin A1c 6.2 % (4.5-5.6) Triglycerides Level 134 mg/dl (0-150) Cholesterol Level 113 mg/dl (0-200) HDL Cholesterol 58 mg/dl LDL Cholesterol, Calculated 28 mg/dl VLDL Cholesterol, Calculated 27 mg/dl Cholesterol/HDL Ratio 1.9 Thyroid Stimulating Hormone (TSH) 1.720 uIu/ml (0.300-4.500) Imaging MRI OF THE BRAIN WITHOUT AND WITH IV CONTRAST CLINICAL HISTORY: Diplopia, Left medial gaze COMPARISON STUDY: 11/03/2016, noncontrast head CT dated 12/05/2017. TECHNIQUE: MRI of the brain was performed from the vertex to the skull base utilizing various T1 and T2 weighted sequences. Following the IV administration of 8.7 mL of Gadavist contrast, additional enhanced images were obtained. FINDINGS: Sagittal T1, axial diffusion, proton density and T2 weighted axial, coronal FLAIR, and pre and post axial T1-weighted images were acquired. These were supplemented with post gadolinium coronal T1 weighted images. No intra or extra-axial mass lesions are visualized. Axial diffusion-weighted images reveal no evidence of acute or subacute infarction. There is no evidence of ventricular dilatation. Proton density T2-weighted and FLAIR images reveal scattered foci of increased T2 signal within the white matter, likely on a small vessel basis. There are no abnormal flow voids. There is no evidence of pathologic enhancement. IMPRESSION: 1. No acute intracranial findings 2. No evidence of intracranial mass. No evidence of acute or subacute infarction 3. Foci of increased T2 signal within the white matter, similar to the prior study and likely on a small vessel basis. Electronically signed by: Juan Caruso M.D. 12/05/2017 4:42 PM Impression 1. 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 She has no other cranial nerve deficit or issue and her vision is otherwise unaffected. The rest of her neurologic examination is unremarkable with no focal neurologic signs, meningeal signs, or encephalopathy. MRI of the brain shows no acute stroke although she does have some old, mild small vessel ischemic changes and atrophy consistent with age and condition. 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 I note the equivocal Lyme antibody titer but I doubt this represents Lyme disease. This event occurred on 81 mg aspirin daily. 2. Hypertension, not adequately controlled 3. Mild chronic cerebral ischemia 4. Equivocal Lyme antibody titer, awaiting Western blot. Plan 1. There is no specific treatment for this condition and in my experience, this tends to resolve on its own over 6-8 weeks. 2. I suggest obtaining an ophthalmology consult as an outpatient, to make sure there are no other eye issues. 3. Considering this occurred on 81 mg aspirin and she has chronic small vessel ischemic disease, I would switch aspirin to clopidogrel 75 mg daily. 4. Control blood pressure as best as possible trying for a mean arterial pressure of about 100 or little less. 5. She has no significant dyslipidemia and she is not a candidate for high-dose statins. 6. Awaiting Western blot for the equivocal Lyme antibody titer 7. Awaiting echocardiogram results. 8.. There is no need for additional neurologic testing or treatment at this time. I spoke with Dr. Angeles regarding this case including differential diagnosis and treatment options. A total of 65 minutes was spent with this case.
[2017-12-06] MEDS ORDERED: MINERALS PO SCH (09:00)
[2017-12-06] MEDS ORDERED: MULTIPLE VITAMINS PO SCH (09:00)
[2017-12-06] MEDS ORDERED: ASPIRIN 81 MG ECTAB PO SCH (09:00)
[2017-12-06] MEDS ORDERED: NON-FORMULARY MEDICATION (Riboflavin (Vitamin B-2) 400 MG) PO SCH (09:00)
[2017-12-06] MEDS: CHOLECALCIFEROL 1000 INTER.UNIT TAB PO SCH (09:20)
[2017-12-06] MEDS: CEROVITE ADV FORMULA TAB PO SCH (09:21)
[2017-12-06] MEDS: METOPROLOL SUCC 50MG EXT REL TAB PO SCH (09:21)
[2017-12-06] MEDS: CLOPIDOGREL BISULFATE 75 MG TAB PO SCH (09:21)
[2017-12-06] MEDS: ISOSORBIDE MONONITRATE 60 MG TABCR PO SCH (09:22)
--- NOTE | 2017-12-06 12:25 | ECHOCARDIOGRAM REPORT ---
*NOTICE TO RECEIVING REPUBLICAN AGENCY This information is strictly Confidential and protected under [place] law. [place] law prohibits you from making any further disclosure of this information unless further disclosure is expressly permitted by the written consent of the person to whom it pertains or is authorized by law. A general authorization for the release of medical or other information is not sufficient for this purpose. Hospital accepts no responsibility if the information is made available to any other person, INCLUDING THE PATIENT. Interpretation Summary * Name: ALIS BRIAN Study Date: 12/06/2017 07:17 AM BP: 127/74 mmHg * Patient Location: [facility]\S\N282\S\1 HR: 74 * : 1935 (M/d/yyy) Gender: Female Height: 65 in * Age: 82 yrs Ethnicity: [place] Weight: 188 lb * Ordering Physician: Phyllis Blas * Referring Physician: Parul Pulliam PA-C * Performed By: Bethany Benoit RDCS * * Reason For Study: Stroke * BSA: 1.9 m2 * -- Conclusions -- * Left ventricular systolic function is normal. * Grade I diastolic dysfunction, (abnormal relaxation pattern). * The left atrium is mildly dilated. * No bubble study was performed on this examination as patient was previously demonstrated to not have a PFO. * Compared to an echocardiogram from 11/05/2016, there is minimal change. Procedure Details * A complete two-dimensional transthoracic echocardiogram was performed (2D, M-mode, Doppler and color flow Doppler). * A contrast injection of Definity was performed to improve assessment of LV function. * Contrast was injected into an intravenous site in the left arm. * One vial of Definity ultrasound contrast was diluted in normal saline to a total volume of 10 ml. A total of '2' ml of solution was administered during imaging. * Lot # [id number] of Definity utilized for procedure. * Expiration date . * The attending nurse who injected the contrast agent was Sarai Zamora RN. Left Ventricle * The left ventricle is grossly normal size. * There is normal left ventricular wall thickness. * Ejection Fraction = 55-60%. * Left ventricular systolic function is normal. * Grade I diastolic dysfunction, (abnormal relaxation pattern). * The left ventricular wall motion is normal. Right Ventricle * The right ventricle is normal in size and function. Atria * The left atrium is mildly dilated. * Right atrial size is normal. Mitral Valve * The mitral valve is grossly normal. * Significant mitral regurgitation is absent. Tricuspid Valve * The tricuspid valve is not well visualized, but is grossly normal. * Significant tricuspid regurgitation is absent. Aortic Valve * The aortic valve is normal in structure and function. * No hemodynamically significant valvular aortic stenosis. * No aortic regurgitation is present. Great Vessels * The aortic root is normal size. Pericardium/Pleural * There is no pericardial effusion. Great Vessels * Normal inferior vena cava diameter and respiratory variation suggests normal central venous pressure. MMode 2D Measurements and Calculations IVSd 1.0 cm IVSs 1.5 cm LVIDd 5.1 cm LVIDs 3.1 cm LVPWd 1.2 cm LVPWs 1.5 cm IVS/LVPW 0.88 FS 38.6 % EDV(Teich) 122.9 ml ESV(Teich) 38.6 ml EF(Teich) 68.6 % EDV(cubed) 131.4 ml ESV(cubed) 30.5 ml EF(cubed) 76.8 % % IVS thick 44.9 % % LVPW thick 23.3 % LV mass(C)d 217.0 grams LV mass(C)dI 112.6 grams/m\S\2 LV mass(C)s 164.1 grams LV mass(C)sI 85.2 grams/m\S\2 SV(Teich) 84.3 ml SI(Teich) 43.8 ml/m\S\2 SV(cubed) 101.0 ml SI(cubed) 52.4 ml/m\S\2 Ao root diam 2.9 cm Ao root area 6.5 cm\S\2 ACS 1.9 cm LA dimension 4.2 cm LA/Ao 1.5 LVAd ap4 29.7 cm\S\2 LVLd ap4 7.9 cm EDV(MOD-sp4) 96.8 ml EDV(sp4-el) 94.3 ml LVAs ap4 18.2 cm\S\2 LVLs ap4 7.6 cm ESV(MOD-sp4) 41.5 ml ESV(sp4-el) 36.8 ml EF(MOD-sp4) 57.2 % EF(sp4-el) 61.0 % LVAd ap2 23.1 cm\S\2 LVLd ap2 8.1 cm EDV(MOD-sp2) 59.1 ml EDV(sp2-el) 56.1 ml LVAs ap2 14.5 cm\S\2 LVLs ap2 7.0 cm ESV(MOD-sp2) 28.4 ml ESV(sp2-el) 25.5 ml EF(MOD-sp2) 52.0 % EF(sp2-el) 54.6 % LVLd %diff 1.4 % EDV(MOD-bp) 75.4 ml LVLs %diff -8.81 % ESV(MOD-bp) 35.7 ml EF(MOD-bp) 52.6 % SV(MOD-sp4) 55.3 ml SI(MOD-sp4) 28.7 ml/m\S\2 SV(MOD-sp2) 30.8 ml SI(MOD-sp2) 16.0 ml/m\S\2 SV(MOD-bp) 39.7 ml SI(MOD-bp) 20.6 ml/m\S\2 SV(sp4-el) 57.5 ml SI(sp4-el) 29.8 ml/m\S\2 SV(sp2-el) 30.6 ml SI(sp2-el) 15.9 ml/m\S\2 Doppler Measurements and Calculations MV E max velia 89.9 cm/sec MV A max velia 79.9 cm/sec MV E/A 1.1 MV dec time 0.21 sec Ao V2 max 172.1 cm/sec Ao max PG 12.1 mmHg Ao max PG (full) 7.3 mmHg LV V1 max PG 4.8 mmHg LV V1 max 109.1 cm/sec PA V2 max 118.1 cm/sec PA max PG 5.6 mmHg
--- NOTE | 2017-12-06 12:26 | ECHOCARDIOGRAM REPORT ---
*NOTICE TO RECEIVING CONSTITUTION PARTY AGENCY This information is strictly Confidential and protected under [place] law. [place] law prohibits you from making any further disclosure of this information unless further disclosure is expressly permitted by the written consent of the person to whom it pertains or is authorized by law. A general authorization for the release of medical or other information is not sufficient for this purpose. Hospital accepts no responsibility if the information is made available to any other person, INCLUDING THE PATIENT. Interpretation Summary * Name: ALIS BRIAN Study Date: 12/06/2017 07:17 AM BP: 127/74 mmHg * Patient Location: [facility]\S\N282\S\1 HR: 74 * : 1935 (M/d/yyy) Gender: Female Height: 65 in * Age: 82 yrs Ethnicity: [place] Weight: 188 lb * Ordering Physician: Phyllis Blas * Referring Physician: Parul Pulliam PA-C * Performed By: Bethany Benoit RDCS * * Reason For Study: Stroke * BSA: 1.9 m2 * -- Conclusions -- * Left ventricular systolic function is normal. * Grade I diastolic dysfunction, (abnormal relaxation pattern). * The left atrium is mildly dilated. * No bubble study was performed on this examination as patient was previously demonstrated to not have a PFO. * Compared to an echocardiogram from 11/05/2016, there is minimal change. * There is moderate right ventricular hypertrophy. Procedure Details * A complete two-dimensional transthoracic echocardiogram was performed (2D, M-mode, Doppler and color flow Doppler). * A contrast injection of Definity was performed to improve assessment of LV function. * Contrast was injected into an intravenous site in the left arm. * One vial of Definity ultrasound contrast was diluted in normal saline to a total volume of 10 ml. A total of '2' ml of solution was administered during imaging. * Lot # [id number] of Definity utilized for procedure. * Expiration date . * The attending nurse who injected the contrast agent was Sarai Zamora RN. Left Ventricle * The left ventricle is grossly normal size. * There is normal left ventricular wall thickness. * Ejection Fraction = 55-60%. * Left ventricular systolic function is normal. * Grade I diastolic dysfunction, (abnormal relaxation pattern). * The left ventricular wall motion is normal. Right Ventricle * The right ventricle is normal in size and function. * There is moderate right ventricular hypertrophy. Atria * The left atrium is mildly dilated. * Right atrial size is normal. Mitral Valve * The mitral valve is grossly normal. * Significant mitral regurgitation is absent. Tricuspid Valve * The tricuspid valve is not well visualized, but is grossly normal. * Significant tricuspid regurgitation is absent. Aortic Valve * The aortic valve is normal in structure and function. * No hemodynamically significant valvular aortic stenosis. * No aortic regurgitation is present. Great Vessels * The aortic root is normal size. Pericardium/Pleural * There is no pericardial effusion. Great Vessels * Normal inferior vena cava diameter and respiratory variation suggests normal central venous pressure. MMode 2D Measurements and Calculations IVSd 1.0 cm IVSs 1.5 cm LVIDd 5.1 cm LVIDs 3.1 cm LVPWd 1.2 cm LVPWs 1.5 cm IVS/LVPW 0.88 FS 38.6 % EDV(Teich) 122.9 ml ESV(Teich) 38.6 ml EF(Teich) 68.6 % EDV(cubed) 131.4 ml ESV(cubed) 30.5 ml EF(cubed) 76.8 % % IVS thick 44.9 % % LVPW thick 23.3 % LV mass(C)d 217.0 grams LV mass(C)dI 112.6 grams/m\S\2 LV mass(C)s 164.1 grams LV mass(C)sI 85.2 grams/m\S\2 SV(Teich) 84.3 ml SI(Teich) 43.8 ml/m\S\2 SV(cubed) 101.0 ml SI(cubed) 52.4 ml/m\S\2 Ao root diam 2.9 cm Ao root area 6.5 cm\S\2 ACS 1.9 cm LA dimension 4.2 cm LA/Ao 1.5 LVAd ap4 29.7 cm\S\2 LVLd ap4 7.9 cm EDV(MOD-sp4) 96.8 ml EDV(sp4-el) 94.3 ml LVAs ap4 18.2 cm\S\2 LVLs ap4 7.6 cm ESV(MOD-sp4) 41.5 ml ESV(sp4-el) 36.8 ml EF(MOD-sp4) 57.2 % EF(sp4-el) 61.0 % LVAd ap2 23.1 cm\S\2 LVLd ap2 8.1 cm EDV(MOD-sp2) 59.1 ml EDV(sp2-el) 56.1 ml LVAs ap2 14.5 cm\S\2 LVLs ap2 7.0 cm ESV(MOD-sp2) 28.4 ml ESV(sp2-el) 25.5 ml EF(MOD-sp2) 52.0 % EF(sp2-el) 54.6 % LVLd %diff 1.4 % EDV(MOD-bp) 75.4 ml LVLs %diff -8.81 % ESV(MOD-bp) 35.7 ml EF(MOD-bp) 52.6 % SV(MOD-sp4) 55.3 ml SI(MOD-sp4) 28.7 ml/m\S\2 SV(MOD-sp2) 30.8 ml SI(MOD-sp2) 16.0 ml/m\S\2 SV(MOD-bp) 39.7 ml SI(MOD-bp) 20.6 ml/m\S\2 SV(sp4-el) 57.5 ml SI(sp4-el) 29.8 ml/m\S\2 SV(sp2-el) 30.6 ml SI(sp2-el) 15.9 ml/m\S\2 Doppler Measurements and Calculations MV E max velia 89.9 cm/sec MV A max velia 79.9 cm/sec MV E/A 1.1 MV dec time 0.21 sec Ao V2 max 172.1 cm/sec Ao max PG 12.1 mmHg Ao max PG (full) 7.3 mmHg LV V1 max PG 4.8 mmHg LV V1 max 109.1 cm/sec PA V2 max 118.1 cm/sec PA max PG 5.6 mmHg
--- NOTE | 2017-12-06 13:45 | Hospitalist Progress Note ---
Hospitalist Progress Note Date of Service Dec 06, 2017. Subjective Pt evaluation today including: conversation w/ patient, physical exam, chart review, lab review, review of inpatient medication list Voiding: no voiding problems Ms. Meek continues to have double vision. She has some unsteadiness on her feet as well. She no longer has a headache. ROS Constitutional: no chills, aches, sweats or fever Respiratory: no sob,cough, sputum, or wheezing Cardiac: no chest pain, palpitations, edema, orthopnea or lightheadedness GI: no abdominal pain, nausea, vomiting, diarrhea or constipation : no dysuria or hesitancy Extremities: no joint pain or weakness Skin: no rash All other systems reviewed and negative Medications Medications Administered Medications (Trade) Dose Ordered Sig/Too Route Start Time Stop Time Status Last Admin Dose Admin Acetaminophen (Tylenol Tab) 650 mg Q4H PRN PO 12/05/17 15:30 01/04/18 15:29 12/06/17 09:41 650 MG Aspirin (Ecotrin Tab) 81 mg DAILY PO 12/06/17 09:00 01/05/18 08:59 12/06/17 09:22 81 MG Atorvastatin Calcium (Lipitor Tab) 40 mg HS PO 12/05/17 21:00 01/04/18 20:59 12/05/17 21:05 40 MG Cholecalciferol (Vitamin D Tab) 2,000 inter.unit QAM PO 12/06/17 09:00 01/05/18 08:59 12/06/17 09:20 2,000 INTER.UNIT Isosorbide Mononitrate (Imdur Ext Rel Tab) 60 mg QAM PO 12/06/17 09:00 01/05/18 08:59 12/06/17 09:22 60 MG Levothyroxine Sodium (Synthroid Tab) 100 mcg DAILYBB PO 12/06/17 06:30 01/05/18 06:59 12/06/17 06:07 100 MCG Meclizine HCl (Antivert Tab) 25 mg TID PRN PO 12/05/17 15:30 01/04/18 15:29 12/06/17 09:26 25 MG Metoprolol Succinate (Toprol Xl Tab) 50 mg QAM PO 12/06/17 09:00 01/05/18 08:59 12/06/17 09:21 50 MG Multivitamins/ Minerals (Multivitamin W/ Minerals Tab) 1 tab DAILY PO 12/06/17 09:00 01/05/18 08:59 12/06/17 09:21 1 TAB Ceftriaxone Sodium 2000 mg/ Dextrose 70 ml @ 100 mls/hr Q24H IV 12/05/17 18:00 12/15/17 17:59 12/05/17 18:00 100 MLS/HR Clopidogrel Bisulfate (plAVix TAB) 75 mg QAM PO 12/06/17 09:00 01/05/18 08:59 12/06/17 09:21 75 MG Perflutren Lipid Microsphere (Definity) 2 ml ONE ONCE IV 12/06/17 08:07 12/06/17 08:08 DC 12/06/17 08:08 2 ML Objective Vital Signs Date Time Temp Pulse Resp B/P (MAP) Pulse Ox O2 Delivery O2 Flow Rate FiO2 12/06/17 11:12 95 Room Air 12/06/17 11:01 36.9 75 15 125/80 (95) 95 Room Air 12/06/17 08:38 37.0 79 14 128/80 (96) 95 Room Air 12/06/17 08:00 94 Room Air 12/06/17 04:00 37.0 74 18 127/74 (91) 94 Room Air 12/06/17 04:00 Room Air 12/06/17 00:00 Room Air 12/05/17 23:20 36.8 69 18 144/77 (99) 95 Room Air 12/05/17 20:00 Room Air 12/05/17 20:00 36.9 71 18 156/79 (104) 95 Room Air 12/05/17 16:00 66 20 151/92 95 Room Air 12/05/17 13:37 66 20 154/90 97 Room Air Physical Exam Notes: General: no distress Eyes: left eye esotropic when not focusing straight in front of her, PERLL, normal peripheral vision Respiratory: chest non tender, clear to auscultation, normal breath sounds, no respiratory distress, no accessory muscle use Cardiac: regular rate and rhythm, no rub or gallop, no murmur, no edema, no jvd GI/: active bowel sounds, no abd pain or tenderness, soft, non distended Extremities: normal range of motion, normal strength, non tender Neuro/Psych: alert and oriented x 3, normal mood and affect, CN II-XII normal except for CN palsy Skin: normal color, dry Laboratory Results Last 24 Hours Test 12/06/17 05:30 White Blood Count 5.75 K/uL Red Blood Count 4.32 M/uL Hemoglobin 13.0 g/dL Hematocrit 38.5 % Mean Corpuscular Volume 89.1 fL Mean Corpuscular Hemoglobin 30.1 pg Mean Corpuscular Hemoglobin Concent 33.8 g/dl Platelet Count 138 K/uL Mean Platelet Volume 9.9 fL Neutrophils (%) (Auto) 50.4 % Lymphocytes (%) (Auto) 34.6 % Monocytes (%) (Auto) 11.3 % Eosinophils (%) (Auto) 2.6 % Basophils (%) (Auto) 0.9 % Neutrophils # (Auto) 2.90 K/uL Lymphocytes # (Auto) 1.99 K/uL Monocytes # (Auto) 0.65 K/uL Eosinophils # (Auto) 0.15 K/uL Basophils # (Auto) 0.05 K/uL RDW Standard Deviation 40.8 fL RDW Coefficient of Variation 12.5 % Immature Granulocyte % (Auto) 0.2 % Immature Granulocyte # (Auto) 0.01 K/uL Prothrombin Time 10.6 SECONDS Prothromb Time International Ratio 1.0 Estimated Average Glucose 131 mg/dl Hemoglobin A1c 6.2 % Triglycerides Level 134 mg/dl Cholesterol Level 113 mg/dl HDL Cholesterol 58 mg/dl LDL Cholesterol, Calculated 28 mg/dl VLDL Cholesterol, Calculated 27 mg/dl Cholesterol/HDL Ratio 1.9 Thyroid Stimulating Hormone (TSH) 1.720 uIu/ml Assessment and Plan Ms. Meek is an 82 year old woman here for diplopia and esotropia in the left eye. 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 - will initiate doxycycline therapy as western blot will not result for four days. CAD, HTN, HLD - Continue home medications including metoprolol succ 50 mg QAm, Imdur 60 mg Qam , atorvastatin 40 mg QHS - Follows with Dr. Zavala as an outpt. Hypothyroidism - Continue levothyroxine 100 mcg daily DVT ppx: teds, scds, holding chemical anticoagulation at this time Disposition: From home, lives alone
--- NOTE | 2017-12-06 15:19 | OPHTHALMOLOGY CONSULTATION ---
DATE OF CONSULTATION: 12/06/2017 DATE OF CONSULTATION: 12/06/2017 CHIEF COMPLAINT: Double vision. HISTORY OF PRESENT ILLNESS: The patient is an 82-year-old woman who presented to the hospital with a 4-day history of double vision. She reports that she had a headache for the last couple of days which has since resolved. The double vision resolves if she covers either eye. PAST MEDICAL HISTORY: Significant for hypertension, coronary artery disease, hypercholesterolemia, osteoarthritis, chronic back pain. PAST OCULAR HISTORY: Significant for cataract surgery both eyes. The right eye was about 6 years ago and the left eye was done in September. MEDICATIONS: Aspirin, Lipitor, Imdur, levothyroxine, metoprolol, nitroglycerin. ALLERGIES: PENICILLINS AND CORTISONE. EXAMINATION: Visual acuity 20/30 in both eyes. Pupils are equal and reactive without afferent pupillary defect. The lids were normal without evidence of ptosis. Anterior segment by penlight shows clear corneas, quiet conjunctiva, deep and quiet anterior chambers, round and reactive irises, and clear lenses. Motility examination is notable for loss of abduction of the right eye with resulting esotropia on right gaze. Confrontation visual siegel were full. Fundus examination through an undilated pupil shows normal optic nerves, retinal vessels, macula and retinal periphery. IMAGING: MRI of the brain revealed no acute intracranial processes. Specifically, there was no mass or evidence of new stroke. There was evidence of small vessel disease. LABORATORY DATA: There is some question of a positive Lyme titer. The patient has a right sixth nerve palsy. 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 I do not feel that any further workup is probably indicated. PLAN: An ischemic 6th nerve palsy will typically resolve over a period of weeks to months with conservative management. Ms. Meek can patch either eye as needed for symptomatic relief. I would advise followup as an outpatient in about 4-6 weeks to remeasure her ocular motility. If at 6 months she is no longer showing signs of improvement, then we will fit with either prism glasses or consider eye muscle surgery depending on her degree of esotropia in primary gaze. Please call [phone] with questions. [facility] CENTERAngela
[2017-12-06] MEDS: CEFTRIAXONE SOD INJ 2,000 MG in DEXTROSE 5% 50ML 50 ML IV SCH (18:21)
[2017-12-06] MEDS: ATORVASTATIN 40 MG TAB PO SCH (21:15)
[2017-12-06] MEDS: DOXYCYCLINE HYCLATE 100 MG CAP PO SCH (21:16)
[2017-12-07 03:15] VITALS: BP 136/75; PULSE 61; TEMP 36.8; O2SAT 95
[2017-12-07] MEDS: LEVOTHYROXINE 100 MCG TAB PO SCH (06:25)
[2017-12-07 07:16] LABS: BASO % 0.7 %; BASO ABS # 0.04 K/uL (0-0.2); EOS ABS # 0.17 K/uL (0-0.5); HEMATOCRIT 37.7 % (37-47); IG# 0.01 K/uL (0.00-0.02); LYMPH % 34.7 %; LYMPH ABS # 1.99 K/uL (1.2-3.4); MEAN CELL VOLUME 89.5 fL (80-100); MEAN CORPUSCULAR HEMOGLOBIN 30.9 pg (25-34); MEAN CORPUSCULAR HGB CONC 34.5 g/dl (32-36); MEAN PLATELET VOLUME 9.8 fL (7.4-10.4); MONO % 13.1 %; MONO ABS # 0.75 K/uL (0.11-0.59); NEUT % 48.3 %; NEUT ABS # 2.78 K/uL (1.4-6.5); PLATELET COUNT 136 K/uL (130-400); RED CELL DISTRIBUTION WIDTH CV 12.6 % (11.5-14.5); RED CELL DISTRIBUTION WIDTH SD 40.9 fL (36.4-46.3); WHITE BLOOD COUNT 5.74 K/uL (4.8-10.8)
[2017-12-07 07:43] VITALS: BP 133/77; PULSE 75; TEMP 37; O2SAT 95
[2017-12-07 08:00] VITALS: O2SAT 95
[2017-12-07] MEDS: DOXYCYCLINE HYCLATE 100 MG CAP PO SCH (09:22)
[2017-12-07] MEDS: CLOPIDOGREL BISULFATE 75 MG TAB PO SCH (09:22)
[2017-12-07] MEDS: CHOLECALCIFEROL 1000 INTER.UNIT TAB PO SCH (09:22)
[2017-12-07] MEDS: ISOSORBIDE MONONITRATE 60 MG TABCR PO SCH (09:23)
[2017-12-07] MEDS: METOPROLOL SUCC 50MG EXT REL TAB PO SCH (09:23)
[2017-12-07] MEDS: CEROVITE ADV FORMULA TAB PO SCH (09:23)
--- NOTE | 2017-12-07 09:40 | Neurology Progress Notes ---
Neurology Progress Note Date of Service Dec 07, 2017. Subjective Patient has no complaint of headache but still has double vision when looking with both eyes. When she covers 1 eye or the other she does not have double vision. She saw Dr. Solis, ophthalmology, yesterday who concurred with the diagnosis. She does an eye patch to cover 1 eye or the other. Nursing reports no new issues. Echocardiogram revealed some mild left ventricular hypertrophy but was otherwise unremarkable. Objective Date Time Temp Pulse Resp B/P (MAP) Pulse Ox O2 Delivery O2 Flow Rate FiO2 12/07/17 08:00 95 Room Air 12/07/17 07:43 37.0 75 16 133/77 (95) 95 Room Air 12/07/17 04:00 Room Air 12/07/17 03:15 36.8 61 18 136/75 (95) 95 Room Air 12/07/17 00:00 Room Air 12/06/17 22:58 37.1 72 20 115/67 (83) 96 Room Air 12/06/17 20:19 37.2 76 20 123/71 (88) 93 Room Air 12/06/17 20:00 Room Air 12/06/17 16:00 Room Air 12/06/17 15:27 36.9 71 20 118/73 (88) 98 Room Air 12/06/17 11:12 95 Room Air 12/06/17 11:01 36.9 75 15 125/80 (95) 95 Room Air Last 24 Hours Test 12/07/17 06:53 White Blood Count 5.74 K/uL Red Blood Count 4.21 M/uL Hemoglobin 13.0 g/dL Hematocrit 37.7 % Mean Corpuscular Volume 89.5 fL Mean Corpuscular Hemoglobin 30.9 pg Mean Corpuscular Hemoglobin Concent 34.5 g/dl Platelet Count 136 K/uL Mean Platelet Volume 9.8 fL Neutrophils (%) (Auto) 48.3 % Lymphocytes (%) (Auto) 34.7 % Monocytes (%) (Auto) 13.1 % Eosinophils (%) (Auto) 3.0 % Basophils (%) (Auto) 0.7 % Neutrophils # (Auto) 2.78 K/uL Lymphocytes # (Auto) 1.99 K/uL Monocytes # (Auto) 0.75 K/uL Eosinophils # (Auto) 0.17 K/uL Basophils # (Auto) 0.04 K/uL RDW Standard Deviation 40.9 fL RDW Coefficient of Variation 12.6 % Immature Granulocyte % (Auto) 0.2 % Immature Granulocyte # (Auto) 0.01 K/uL Prothrombin Time 10.7 SECONDS Prothromb Time International Ratio 1.0 Exam: Patient is awake and alert. Speech is normal without aphasia or dysarthria. Mood and affect seem normal appropriate. Thought processes are roughly intact for age in condition. The left eye has a full range of motion in all directions without nystagmus. She cannot abduct the right eye as per noticed yesterday. There is no facial droop. Limb strength is symmetrical Current Inpatient Medications Medications (Trade) Dose Ordered Sig/Oto Route Start Time Stop Time Status Last Admin Dose Admin Acetaminophen (Tylenol Tab) 650 mg Q4H PRN PO 12/05/17 15:30 01/04/18 15:29 12/06/17 09:41 650 MG Ondansetron HCl (Zofran Inj) 4 mg Q6H PRN IV 12/05/17 15:30 01/04/18 15:29 Polyethylene (Miralax Powder Packet) 17 gm DAILY PRN PO 12/05/17 15:30 01/04/18 15:29 Atorvastatin Calcium (Lipitor Tab) 40 mg HS PO 12/05/17 21:00 01/04/18 20:59 12/06/17 21:15 40 MG Cholecalciferol (Vitamin D Tab) 2,000 inter.unit QAM PO 12/06/17 09:00 01/05/18 08:59 12/07/17 09:22 2,000 INTER.UNIT Isosorbide Mononitrate (Imdur Ext Rel Tab) 60 mg QAM PO 12/06/17 09:00 01/05/18 08:59 12/07/17 09:23 60 MG Levothyroxine Sodium (Synthroid Tab) 100 mcg DAILYBB PO 12/06/17 06:30 01/05/18 06:59 12/07/17 06:25 100 MCG Meclizine HCl (Antivert Tab) 25 mg TID PRN PO 12/05/17 15:30 01/04/18 15:29 12/06/17 09:26 25 MG Metoprolol Succinate (Toprol Xl Tab) 50 mg QAM PO 12/06/17 09:00 01/05/18 08:59 12/07/17 09:23 50 MG Multivitamins/ Minerals (Multivitamin W/ Minerals Tab) 1 tab DAILY PO 12/06/17 09:00 01/05/18 08:59 12/07/17 09:23 1 TAB Ceftriaxone Sodium 2000 mg/ Dextrose 70 ml @ 100 mls/hr Q24H IV 12/05/17 18:00 12/15/17 17:59 12/06/17 18:21 100 MLS/HR Clopidogrel Bisulfate (plAVix TAB) 75 mg QAM PO 12/06/17 09:00 01/05/18 08:59 12/07/17 09:22 75 MG Doxycycline Hyclate (Vibramycin Cap) 100 mg BID PO 12/06/17 21:00 12/16/17 20:59 12/07/17 09:22 100 MG Impression 1. 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 She has no other cranial nerve deficit or issue and her vision is otherwise unaffected. The rest of her neurologic examination is unremarkable with no focal neurologic signs, meningeal signs, or encephalopathy. MRI of the brain shows no acute stroke although she does have some old, mild small vessel ischemic changes and atrophy consistent with age and condition. 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 I note the equivocal Lyme antibody titer but I doubt this represents Lyme disease. This event occurred on 81 mg aspirin daily. 2. Hypertension, not adequately controlled 3. Mild chronic cerebral ischemia 4. Equivocal Lyme antibody titer, awaiting Western blot. Plan 1. There is no specific treatment for this condition and in my experience, this tends to resolve on its own over 6-8 weeks. 2. Continue clopidogrel 75 milligrams daily and remain off aspirin. . 3. Control blood pressure as best as possible trying for a mean arterial pressure of about 100 or little less. 4. She has no significant dyslipidemia and she is not a candidate for high-dose statins. 5. Awaiting Western blot for the equivocal Lyme antibody titer Remained on doxycycline 100 milligrams twice daily for 2 weeks. 6. There is no need for additional neurologic testing or treatment at this time. Please contact me if I can be of further assistance on this case. She should follow up with Ophthalmology as an outpatient. There is no need to follow up with Neurology unless there is a new issue.
[2017-12-07 11:36] VITALS: BP 112/72; PULSE 69; TEMP 36.8; O2SAT 95
[2017-12-07 12:00] VITALS: O2SAT 95
[2017-12-07] MEDS ORDERED: DXY100 PO (12:15)
--- NOTE | 2017-12-07 12:57 | Discharge Instructions ---
Discharge Instructions Date of Service Dec 07, 2017. 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 Instructions / Follow-Up Instructions / Follow-Up The source of your change in eye movements/vision is most likely a hypertension related to very small vessel stroke to nerve that affects that eye movement. However, Lyme disease has not been ruled out and we are awaiting the results of the Lyme blood test. Risk Factors for Stroke: You can reduce your chances of stroke by working with your medical provider to adopt a healthy lifestyle. Some specific ways to lower your chance of stroke are: * If you are a smoker, now is the time to stop smoking cigarettes * If you are diabetic, improve the control of your blood sugars * Avoid excessive amounts of alcohol * Control high blood pressure * Lose weight if you are overweight * Be sure to lead an active lifestyle * Eat a healthy diet low in salt, cholesterol and fat You should know about other risk factors for stroke that you are unable to control. These include: * Age 55 years or older * Male gender * Certain racial groups: , or / * Family History of Stroke, Mini stroke or Heart Attack * Sickle Cell Disease Follow Up: It is important for you to keep your follow up appointments with your medical provider. Current Hospital Diet Patient's current hospital diet: AHA Diet (Heart Healthy) Discharge Diet Recommended Diet: AHA Diet (Heart Healthy) Procedures Procedures Performed: Chest xray Brain MRI Brain CT Carotid US Pending Studies Studies pending at discharge: yes List of pending studies: Lyme western blot Laboratory Results Hemoglobin A1c Test 12/06/17 05:30 Range/Units Estimated Average Glucose 131 mg/dl Hemoglobin A1c 6.2 H 4.5-5.6 % Lipid Panel Test 12/06/17 05:30 Range/Units Triglycerides Level 134 0-150 mg/dl Cholesterol Level 113 0-200 mg/dl HDL Cholesterol 58 mg/dl Cholesterol/HDL Ratio 1.9 LDL Cholesterol, Calculated 28 mg/dl Medical Emergencies . Who to Call and When: Medical Emergencies: Call 911 immediately if you experience any of the following warning signs and symptoms of Stroke: * Sudden numbness or weakness of the face, arm or leg, especially on one side of the body * Sudden confusion, trouble speaking or understanding * Sudden trouble seeing in one or both eyes * Sudden trouble walking, dizziness, loss of balance or coordination * Sudden severe headache with no cause Do not delay calling 911 if you experience any warning signs or symptoms of a stroke. Delay in seeking medical attention may affect what treatments can be given to you. . Non-Emergent Contact Non-Emergency issues call your: Primary Care Provider Call Non-Emergent contact if: you have any medication questions . . "Provider Documentation" section prepared by Yesenia Matos. . Stroke Core Measures Reason no t-PA for Stroke: Treatment not indicated Reason no antithrom by day 2: Treatment not indicated Reason no antithrom at D/C: Treatment not indicated Reason no statin at D/C: Treatment not indicated Reason no anticoag w/a fib: Treatment not indicated VTE Core Measure Inpt VTE Proph given/why not?: T.E.D. Stockings, SCD's
--- NOTE | 2017-12-07 15:12 | Discharge Summary ---
Discharge Summary Date of Service Dec 07, 2017. 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 Imaging reviewed in the transverse and longitudinal planes. NASCET criteria was utilized for stenosis calcification. FINDINGS: There is minimal atherosclerotic plaque present . The peak systolic velocity within the right internal carotid artery is 77 cm/sec. The systolic velocity ratio of right internal to common carotid artery is 1.3. The peak systolic velocity within the left internal carotid artery is 88 cm/sec. The systolic velocity ratio left internal to common carotid artery is 1.3. Antegrade flow is seen in the vertebral arteries. The external carotid arteries are patent. IMPRESSION: No evidence of hemodynamically significant carotid stenosis. Electronically signed by: Juan Caruso M.D. 12/05/2017 5:18 PM MRI OF THE BRAIN WITHOUT AND WITH IV CONTRAST CLINICAL HISTORY: Diplopia, Left medial gaze COMPARISON STUDY: 11/03/2016, noncontrast head CT dated 12/05/2017. TECHNIQUE: MRI of the brain was performed from the vertex to the skull base utilizing various T1 and T2 weighted sequences. Following the IV administration of 8.7 mL of Gadavist contrast, additional enhanced images were obtained. FINDINGS: Sagittal T1, axial diffusion, proton density and T2 weighted axial, coronal FLAIR, and pre and post axial T1-weighted images were acquired. These were supplemented with post gadolinium coronal T1 weighted images. No intra or extra-axial mass lesions are visualized. Axial diffusion-weighted images reveal no evidence of acute or subacute infarction. There is no evidence of ventricular dilatation. Proton density T2-weighted and FLAIR images reveal scattered foci of increased T2 signal within the white matter, likely on a small vessel basis. There are no abnormal flow voids. There is no evidence of pathologic enhancement. IMPRESSION: 1. No acute intracranial findings 2. No evidence of intracranial mass. No evidence of acute or subacute infarction 3. Foci of increased T2 signal within the white matter, similar to the prior study and likely on a small vessel basis. Electronically signed by: Juan Caruso M.D. 12/05/2017 4:42 PM SINGLE VIEW CHEST CLINICAL HISTORY: Strokelike symptoms. FINDINGS: An AP, portable, upright chest radiograph is compared to study dated 05/05/2017 and correlated with chest CT dated 01/25/2014. The heart is enlarged and there is atherosclerotic calcification of the thoracic aorta. The pulmonary vasculature is noncongested. Chronic residual thickening is similar to previous. There is left basilar atelectasis. The lungs and pleural spaces are otherwise clear. No pneumothorax is seen. The skeletal structures are osteopenic. Arthritic change and calcified joint bodies are present in the left shoulder. IMPRESSION: Cardiomegaly with no acute cardiopulmonary abnormality. Electronically signed by: Erik To M.D. 12/05/2017 1:[address] SCAN OF THE BRAIN WITHOUT IV CONTRAST CLINICAL HISTORY: Diplopia. Strokelike symptoms. COMPARISON STUDY: CT of the brain dated 11/03/2016. TECHNIQUE: Unenhanced axial CT scan of the brain is performed from the vertex to the skull base. A dose lowering technique was utilized adhering to the principles of ALARA. CT DOSE: 844.54 mGycm FINDINGS: Brain parenchyma: There are age-related involutional changes noting mild subcortical and periventricular microangiopathic change. There is no hemorrhage, mass effect, or evidence of acute territorial ischemia by CT criteria. Freitas-white matter is preserved. No extra-axial fluid collection is seen. Ventricles, sulci, cisterns: Prominent secondary to involutional change. Intracranial vasculature: There is atherosclerotic calcification of the cavernous carotid arteries. Calvarium: Unremarkable. Sinuses and mastoids: The visualized paranasal sinuses are clear. The mastoid air cells are well pneumatized. Orbits: The bony orbits are grossly intact. There are bilateral ocular lens implants. IMPRESSION: There is no hemorrhage, mass effect, or evidence of acute territorial ischemia by CT criteria. Consultations: Dr. Catalan from neurology, Dr. Huang from Neurology Medication Reconciliation New Medications: Doxycycline Hyclate (Doxycycline Hyclate) 100 Mg Cap 100 MG PO BID for 13 Days, #26 CAP Continued Medications: Acetaminophen (Tylenol) 500 Mg Tab 1000 MG PO QID PRN for Pain, TAB Albuterol Hfa (Ventolin Hfa) 200 Puffs/93953 Mcg Aers 2 PUFFS INH QID PRN for Shortness of Breath Aspirin (Aspirin Chewable) 81 Mg Chew 81 MG PO DAILY Atorvastatin (Lipitor) 40 Mg Tab 40 MG PO HS, TAB Cholecalciferol (Vitamin D 1000 Unit) 1,000 Unit Cap 2000 INTER.UNIT PO QAM Isosorbide Mononitrate Ext Rel (Imdur Ext Rel) 60 Mg Ertab 60 MG PO QAM, TAB Levothyroxine Sodium (Levothyroxine Sodium) 100 Mcg Tab 100 MCG PO QAM Meclizine Hcl (Meclizine Hcl) 25 Mg Tab 25 MG PO TID PRN for Dizziness or Vertigo Metoprolol Succinate (Metoprolol Succinate ER) 50 Mg Tabcr 50 MG PO QAM Multiple Vitamins W/ Minerals (Womens One Daily) 1 Tab Tab 1 TAB PO DAILY Multiple Vitamins W/ Minerals (Ocuvite Adult 50+) 1 Cap Cap 1 CAP PO DAILY Riboflavin (Vitamin B-2) 100 Mg Tab 400 MG PO QAM Discontinued Medications: Nitroglycerin (Nitrostat) 0.4 Mg Sub 0.4 MG UT PRN, SUB Discharge Exam ROS Constitutional: no chills, aches, sweats or fever Respiratory: no sob,cough, sputum, or wheezing Cardiac: no chest pain, palpitations, edema, orthopnea or lightheadedness GI: no abdominal pain, nausea, vomiting, diarrhea or constipation : no dysuria or hesitancy Extremities: no joint pain or weakness Neuro: continued double vision which is mitigated by use of eye patch Skin: no rash All other systems reviewed and negative PE General: no distress Eyes: normal inspection, PERLL Respiratory: chest non tender, clear to auscultation, normal breath sounds, no respiratory distress, no accessory muscle use Cardiac: regular rate and rhythm, no rub or gallop, no murmur, no edema, no jvd GI/: active bowel sounds, no abd pain or tenderness, soft, non distended Extremities: normal range of motion, normal strength, non tender Neuro/Psych: alert and oriented x 3, normal mood and affect Skin: normal color, dry Hospital Course Ms. Meek is an 82 year old woman with PMHx of HTN, CAD, angina pectoris, HLD, hypothyroidism and obesity who presented with diplopia x 4 days which started last night. Pt reported initially it waxed and waned, but it remained constant for at least 1 day [employer]ESS [employer]. She developed a right sided frontal headache when this initially started. She reported that her family today noticed her left eye was turning inward, although she was not aware of it. 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 - will initiate doxycycline therapy as western blot will not result for four days. This should be continued for two weeks if western blot is positive for Lyme - consulted opthamology - per their note: Ms. Meek can patch either eye as needed for symptomatic relief. I would advise followup as an outpatient in about 4-6 weeks to remeasure her ocular motility. If at 6 months she is no longer showing signs of improvement, then we will fit with either prizm glasses or consider eye muscle surgery depending on her degree of esotropia in primary gaze. CAD, HTN, HLD - Continue home medications including metoprolol succ 50 mg QAm, Imdur 60 mg Qam , atorvastatin 40 mg QHS - Follows with Dr. Zavala as an outpt. Hypothyroidism - Continue levothyroxine 100 mcg daily Patient did very well with physical therapy and they felt she was safe to go home and she has quite a bit of family support with family members visiting multiple times per day Total Time Spent: Greater than 30 minutes This includes examination of the patient, discharge planning, medication reconciliation, and communication with other providers. Discharge Instructions Please refer to the electronic Patient Visit Report (Discharge Instructions) for additional information. Follow-Up Dr. Blancas on TuesdayDecember 09 at 10:45 am. Parul Ko PA-C on TuesdayDecember 13 at 1:30 pm. Additional Copies To Isabell Blancas O.D.
[2017-12-07 16:00] VITALS: BP 120/71; PULSE 140; TEMP 36.9; O2SAT 90
[2017-12-08] MEDS ORDERED: DOXY-300 PO (16:18)
== END 2017-12-07 16:47 | disposition home or self-care (01) | DRG 123 ==
LOC: C.EDB 11:38 → C.MED 15:30 → ENRESERV 16:14
PROVIDERS: ADMIT Internal Medicine; ATTEND Hospitalist
DX: H49.22 Sixth [abducent] nerve palsy, left eye (principal); A69.20 Lyme disease, unspecified; H53.2 Diplopia; H50.00 Unspecified esotropia; I10 Essential (primary) hypertension; I25.10 Atherosclerotic heart disease of native coronary artery without angina pectoris; E78.5 Hyperlipidemia, unspecified; E03.9 Hypothyroidism, unspecified; E66.9 Obesity, unspecified; Z66 Do not resuscitate; Z68.31 Body mass index [BMI] 31.0-31.9, adult; Z79.82 Long term (current) use of aspirin; Z79.899 Other long term (current) drug therapy; Z82.49 Family history of ischemic heart disease and other diseases of the circulatory system

== ENCOUNTER 2020-07-04 11:40 | Inpatient (IN) ==
[2020-07-04] MEDS ORDERED: ONDANSETRON INJ 2 MG/ML 2 ML VIAL IV STA (12:11)
[2020-07-04] MEDS ORDERED: SODIUM CHLORIDE 0.9% 500 ML IV SCH (12:15)
--- NOTE | 2020-07-04 12:22 | Emergency Department Note ---
Impression & Plan Weakness, Vomiting and diarrhea, Acute UTI, Enteritis ED Provider Note NAME: ALIS BRIAN AGE: 84 SEX: F : 1935 ARRIVES VIA: Walk-In INFORMANT: [Patient][family, nursing] ED PROVIDER(S): [Erik Singer MD] CHIEF COMPLAINT: Nausea vomiting and diarrhea HISTORY OF PRESENT ILLNESS: The patient is an 84-year-old female who has some dementia. She is a poor historian. Her family provides most of the history. The patient has had a few days of vomiting and diarrhea. She has had some weakness. Today, she lost bowel continence and had diarrhea outside of the b athroom. The family is concerned about dehydration or infection. Apparently, she has had some issues with bowel obstructions before. She also has had UTIs that have led to issues like this. There has been no fever, no cough or congestion or shortness of breath. Patient currently does not seem to be in pain. Given the dementia, no further history obtainable. REVIEW OF SYSTEMS: Unobtainable given her dementia/mental state. PMHx/PSHx: See Below SOCIAL HISTORY: See Below. PHYSICAL EXAM: GENERAL: Patient is in no acute distress. HEENT: No acute trauma, normocephalic atraumatic, mucous membranes moist, no nasal congestion, no scleral icterus. NECK: No stridor, no adenopathy, no meningismus, trachea is midline. LUNGS: Clear to auscultation bilaterally, no wheeze, no rhonchi, breath sounds equal. HEART: Without murmurs gallops or rubs, regular rate and rhythm. ABDOMEN: Soft, nontender, bowel sounds positive, no hernias, no peritonitis. EXTREMITIES: No cyanosis or edema, full range of motion of all the joints without pain or difficulty, no signs for acute trauma. NEUROLOGIC: Awake and alert, confusion noted, poor historian, no acute motor or sensory deficits, no focal weakness. SKIN: No rash, no jaundice, no diaphoresis. DIFFERENTIAL DIAGNOSIS: Infection, dehydration, metabolic abnormality, hypo/hyperglycemia, UTI, bowel obstruction, foodborne or viral illness, electrolyte disturbance, anemia, hypoxia, cardiac sources, intracerebral event, toxicologic, neurologic, as well as other pathologies. EMERGENCY DEPARTMENT COURSE/PROCEDURES: ECG: Indication was weakness. The ECG shows a sinus rhythm with a PAC. There is a left bundle branch block. The rate is 74. There is no ST elevation, no PVCs. Compared to an ECG from 05 December 2017, there is no significant change. Continuous Cardiac Monitoring: An order was placed for continuous cardiac monitoring. The monitor shows a rate of 73 with sinus rhythm and some PACs. MEDICAL DECISION MAKING: There is a moderate leukocytosis, this of course could be consistent with infection. There was a normal hemoglobin and platelet count. No significant electrolyte abnormality or kidney failure. Bilirubin was somewhat elevated at 2.1, the remaining liver enzymes were unremarkable. No evidence for pancrea titis by her testing. Urinalysis does suggest infection, urine culture is pending. Abdominal and pelvis CT shows evidence for enteritis, no bowel obstruction, no evidence for abscess or acute surgical process. Chest film showed some cardiomegaly, there was no CHF or pneumonia, no free air. On exam, the patient was not febrile, there was no peritonitis. The patient received IV saline for hydration. She was given IV Zofran for nausea. She received IV ceftriaxone as antibiotic coverage. The patient's blood pressure has improved, she seems comfortable. I do think a hospital stay is warranted. She has become too weak for her family to care for her. She is having vomiting and diarrhea. She has a UTI which I think has led to her profound weakness. I did speak to the patient and her family, case management was consulted. The on-call hospitalist was consulted. Past Med/Surg History Medical History CAD (coronary artery disease) Chronic cerebral ischemia Dementia Dyslipidemia Hypertension Hypothyroidism (05/25/13) Lyme disease Neuropathy TIA (transient ischemic attack) Surgical History H/O dilation and curettage Hx of cataract surgery Family History Unknown Lung disease Acute myocardial infarction Dementia Father Coronary heart disease Social History Smoking Status: Never smoker Feels Safe at Home: Yes Allergies Allergies Allergy/AdvReac Type Severity Reaction Status Date / Time Penicillins Allergy Unknown RASH Verified 07/04/20 15:05 cephalexin [From Keflex] Allergy Unknown Verified 07/04/20 15:05 cortisone AdvReac Unknown REDNESS Verified 07/04/20 15:05 AND RED NOSE Home Meds Home Medications Medication Instructions Recorded Confirmed atorvastatin 40 mg PO HS 04/20/19 07/04/20 duloxetine 30 mg PO QAM 04/20/19 07/04/20 isosorbide mononitrate 60 mg PO QAM 04/20/19 07/04/20 levothyroxine 100 mcg PO QAM 04/20/19 07/04/20 meclizine 25 mg PO TID PRN 04/20/19 07/04/20 meloxicam 7.5 mg PO DAILY 04/20/19 07/04/20 metoprolol succinate 50 mg PO QAM 04/20/19 07/04/20 montelukast 10 mg PO DAILY 04/20/19 07/04/20 alatnpfr-fzem-FW-calcium-mins 1 tab PO DAILY 04/20/19 07/04/20 [Women's One Daily] riboflavin (vitamin B2) 400 mg PO DAILY 04/20/19 07/04/20 clopidogrel 75 mg tablet 75 mg PO DAILY tab 08/15/19 07/04/20 diclofenac sodium 1 % topical gel 1 % TOPICAL QID PRN gm 08/15/19 07/04/20 tramadol 25 mg PO DAILY PRN 11/28/19 07/04/20 cholecalciferol (vitamin D3) 25 1,000 units PO DAILY tab 06/02/20 07/04/20 mcg (1,000 unit) tablet vit C 250 mg-E 200 unit-zinc 40 1 tab PO BID 06/02/20 07/04/20 mg-copper 1 [id number]-[id number]-ybcwrw capsule donepezil 10 mg PO DAILY 07/04/20 07/04/20 Previous Rx's Medication Instructions Recorded nitroglycerin 0.4 mg sublingual 0.4 mg SL Q5M PRN #25 tab 10/05/19 tablet Results & Data (ED) Vital Signs Vital Signs - 24 hr 07/04/20 11:42 07/04/20 12:11 07/04/20 13:41 Temperature 37 C Temperature Source Oral Pulse Rate 78 Pulse Rate [Finger] 67 Pulse Rate from SpO2 Sensor Pulse Rhythm [Finger] Regular Respiratory Rate 20 20 Respiratory Effort / Characteristics Non-Labored Respiratory Depth Normal Blood Pressure 98/71 L Blood Pressure [Left Arm] 115/63 Blood Pressure Mean 80 Blood Pressure Mean [Left Arm] 80 Pulse Oximetry 98 93 97 Oxygen Delivery Method Room Air Room Air Room Air Sepsis Recent Fever Within 48 Hours No Sepsis New/Unexplained Change in Mental Status No Sepsis Action Taken by Nursing No Action Required 07/04/20 15:01 07/04/20 16:01 Temperature Temperature Source Pulse Rate 73 78 Pulse Rate [Finger] Pulse Rate from SpO2 Sensor 74 Pulse Rhythm [Finger] Respiratory Rate 23 20 Respiratory Effort / Characteristics Respiratory Depth Blood Pressure 124/99 125/59 L Blood Pressure [Left Arm] Blood Pressure Mean 107 86 Blood Pressure Mean [Left Arm] Pulse Oximetry 95 95 Oxygen Delivery Method Sepsis Recent Fever Within 48 Hours Sepsis New/Unexplained Change in Mental Status Sepsis Action Taken by [facility] Medications Current Medication List: was personally reviewed by me Laboratory Data Attestation: I reviewed the patient's lab results. Result diagrams: 07/04/20 12:05 07/04/20 12:05 Lab Results 07/04/20 07/04/20 07/04/20 Range/Units 12:05 12:05 12:40 WBC 14.60 H (4.8-10.8) K/uL RBC 5.00 (4.2-5.4) M/uL Hgb 15.2 (12.0-16.0) g/dL Hct 45.1 (37-47) % MCV 90.2 (80-100) fL MCH 30.4 (25-34) pg MCHC 33.7 (32-36) g/dL RDW Std Deviation 45.2 (36.4-46.3) fL RDW Coeff of Suha 13.7 (11.5-14.5) % Plt Count 204 (130-400) K/uL MPV 10.3 (7.4-10.4) fL Immature Gran % (Auto) 0.2 % Neut % (Auto) 73.1 % Lymph % (Auto) 10.0 % [place] % (Auto) 16.5 % Eos % (Auto) 0.1 % Baso % (Auto) 0.1 % Neut # (Auto) 10.67 H (1.4-6.5) K/uL Lymph # (Auto) 1.46 (1.2-3.4) K/uL [place] # (Auto) 2.41 H (0.11-0.59) K/uL Eos # (Auto) 0.01 (0-0.5) K/uL Baso # (Auto) 0.02 (0-0.2) K/uL Immature Gran # (Auto) 0.03 H (0.00-0.02) K/uL Sodium 138 (136-145) mmol/L Potassium 4.2 (3.5-5.1) mmol/L Chloride 105 (98-107) mmol/L Carbon Dioxide 24 (21-32) mmol/L Anion Gap 9.0 (3-11) BUN 33 H (7-18) mg/dl Creatinine 1.08 (0.6-1.2) mg/dl Est Cr Clr Drug Dosing Not Reportable Est GFR ( Amer) 55.0 Est GFR (Non-Af Amer) 47.4 BUN/Creatinine Ratio 30.4 H (10-20) Glucose 198 H (70-99) mg/dl Calcium 8.9 (8.5-10.1) mg/dl Magnesium 2.2 (1.8-2.4) mg/dl Total Bilirubin 2.1 H (0.2-1) mg/dl AST 25 (15-37) U/L ALT 21 (12-78) U/L Alkaline Phosphatase 105 (45-117) U/L Troponin I < 0.015 (0-0.045) ng/ml Total Protein 6.5 (6.4-8.2) gm/dl Albumin 2.7 L (3.4-5.0) gm/dl Globulin 3.8 (2.5-4.0) gm/dl Albumin/Globulin Ratio 0.7 L (0.9-2) Lipase 41 L (73-393) U/L Specimen Hemolysis Urine Color Lisa Urine Appearance Slightly Cloudy (Clear) Urine pH 5.5 (4.5-7.5) Ur Specific [place] >= 1.030 (1.000-1.030) Urine Protein 1+ H (Negative) Urine Glucose (UA) Negative (Negative) Urine Ketones Negative (Negative) Urine Blood 2+ H (Negative) Urine Nitrite Positive A (Negative) Urine Bilirubin 1+ H (Negative) Urine Urobilinogen Negative (Negative) Ur Leukocyte Esterase 1+ H (Negative) Urine RBC 10-30 H (0-4) /hpf Urine WBC >30 H (0-5) /hpf Ur Epithelial Cells 10-20 H (0-5) /lpf Urine Bacteria 3+ H (Negative) Administered Medications Discontinued Medications Sodium Chloride (Nss) 500 mls @ 999 mls/hr IV .Q31M ALFRED Stop: 07/04/20 12:45 Last Infusion: 07/04/20 13:24 Dose: 0 mls/hr Documented by: [id number] Admin: 07/04/20 12:31 Dose: 999 mls/hr Documented by: [id number] Ceftriaxone Sodium (Rocephin) 1,000 mg in 50 mls @ 100 mls/hr IV NOW STA Stop: 07/04/20 15:05 Last Infusion: 07/04/20 15:27 Dose: 0 mls/hr Documented by: [id number] Admin: 07/04/20 14:57 Dose: 100 mls/hr Documented by: [id number] Sodium Chloride (Nss 1000ml) 500 mls @ 999 mls/hr IV .Q31M ONE Stop: 07/04/20 15:06 Last Infusion: 07/04/20 15:36 Dose: 0 mls/hr Documented by: [id number] Admin: 07/04/20 15:05 Dose: 999 mls/hr Documented by: [id number] Ioversol (Ioversol 100ml) 93 ml IV ONCE ONE Stop: 07/04/20 14:00 Last Admin: 07/04/20 14:00 Dose: 93 ml Documented by: [id number] Ondansetron HCl (Ondansetron Inj 2 Mg/Ml 2 Ml Vial) 4 mg IV NOW STA Stop: 07/04/20 12:12 Last Admin: 07/04/20 12:31 Dose: 4 mg Documented by: [id number] Imaging Data Radiologist's Impression: XR chest 1V portable HISTORY: 84 years-old Female weakness acute weakness COMPARISON: Chest CT 11/28/2019, chest radiograph 04/20/2019 TECHNIQUE: Semierect portable AP view of the chest FINDINGS: Cardiac silhouette is enlarged, unchanged. Mild right hemidiaphragmatic elevation. No pneumothorax, pleural effusion or overt pulmonary edema. No airspace consolidation typical for pneumonia. Mild linear subsegmental left basilar atelectasis. Degenerative changes of the shoulders and spine. Multiple loose bodies of the left subscapularis recess measure up to 1.2 cm. IMPRESSION: Cardiomegaly without acute process. CT abd pelvis IV con only CT DOSE: 675.04 mGy.cm HISTORY: Nausea and nvd, poss divertic or obstruc TECHNIQUE: Multiaxial CT images of the abdomen and pelvis were performed following the use of intravenous contrast. A dose lowering technique was utilized adhering to the principles of ALARA. COMPARISON STUDY: None. FINDINGS: Lung bases are clear. Liver spleen and pancreas appear unremarkable. Several small gallstones within the gallbladder lumen. There are fatty replacement changes of the pancreas. There is a 3 cm right renal cyst. A nonobstructing calcification is present within the right renal upper pole collecting system as well as in the right renal pelvis. There is moderate small bowel wall thickening throughout. The colonic pattern is considered nonobstructive. There is small amount of free fluid within the pelvic cul-de-sac. IMPRESSION: 1. Generalized small bowel enteritis. 2. No evidence for abscess collection or obstruction. 3. Several nonobstructing right renal calcifications 4. Small amount of reactive free fluid within the pelvic cul-de-sac. 5. Several small gallstones. Blood Pressure Blood Pressure Findings: Elevated blood pressure Blood Pressure Disposition: further management by hospitalist Discharge Plan Visit Data Chief Complaint: Illness Stated Complaint: ILLNESS ED Provider: Erik Singer Discharge Problem: Weakness, Vomiting and diarrhea, Acute UTI, Enteritis Patient Disposition: Admitted As Inpatient Condition: Good Discharge Instructions Interventions: ED Discharge Assessment Last Done: 07/04/20 17:26
[2020-07-04 12:35] LABS: Basophils # (auto) 0.02 K/uL (0-0.2); Basophils % (auto) 0.1 %; Eosinophils # (auto) 0.01 K/uL (0-0.5); Eosinophils % (auto) 0.1 %; Hematocrit (blood only) 45.1 % (37-47); Hemoglobin 15.2 g/dL (12.0-16.0); Immature Granulocytes # (auto) 0.03 K/uL (0.00-0.02); Immature Granulocytes % (auto) 0.2 %; Lymphocytes # (auto) 1.46 K/uL (1.2-3.4); Mean Corpuscular Hemoglobin 30.4 pg (25-34); Mean Corpuscular Hgb Conc 33.7 g/dL (32-36); Mean Corpuscular Volume 90.2 fL (80-100); Mean Platelet Volume 10.3 fL (7.4-10.4); Monocytes # (auto) 2.41 K/uL (0.11-0.59); Monocytes % (auto) 16.5 %; Neutrophils # (auto) 10.67 K/uL (1.4-6.5); Neutrophils % (auto) 73.1 %; Platelet Count 204 K/uL (130-400); RDW Coefficient of Variation 13.7 % (11.5-14.5); RDW Standard Deviation 45.2 fL (36.4-46.3)
[2020-07-04 12:53] LABS: Appearance Urine Slightly Cloudy (Clear); Blood Urine 2+ (Negative); Color Urine Amber; Glucose Urine UA Negative (Negative); Ketones Urine Negative (Negative); Leukocyte Esterase Urine 1+ (Negative); Nitrite Urine Positive (Negative); Protein Urine 1+ (Negative); Specific Gravity Urine >= 1.030 (1.000-1.030); Urobilinogen Urine Negative (Negative); pH Urine 5.5 (4.5-7.5)
[2020-07-04 13:01] LABS: Alanine Aminotransferase 21 U/L (12-78); Albumin Globulin Ratio 0.7 (0.9-2); Albumin Level 2.7 gm/dl (3.4-5.0); Alkaline Phosphatase 105 U/L (45-117); Aspartate Aminotransferase 25 U/L (15-37); BUN Creatinine Ratio 30.4 (10-20); Bilirubin,Total 2.1 mg/dl (0.2-1); Blood Urea Nitrogen 33 mg/dl (7-18); Calcium 8.9 mg/dl (8.5-10.1); Carbon Dioxide 24 mmol/L (21-32); Chloride 105 mmol/L (98-107); Est GFR (Non-African American) 47.4; Globulin 3.8 gm/dl (2.5-4.0); Glucose 198 mg/dl (70-99); Lipase 41 U/L (73-393); Magnesium 2.2 mg/dl (1.8-2.4); Potassium 4.2 mmol/L (3.5-5.1); Sodium 138 mmol/L (136-145); Total Protein 6.5 gm/dl (6.4-8.2); Troponin I < 0.015 ng/ml (0-0.045)
[2020-07-04 13:06] LABS: Bilirubin Urine 1+ (Negative)
[2020-07-04 13:07] LABS: Ictotest Urine Positive (Negative)
--- NOTE | 2020-07-04 13:10 | XRay Report ---
XR chest 1V portable HISTORY: 84 years-old Female weakness acute weakness COMPARISON: Chest CT 11/28/2019, chest radiograph 04/20/2019 TECHNIQUE: Semierect portable AP view of the chest FINDINGS: Cardiac silhouette is enlarged, unchanged. Mild right hemidiaphragmatic elevation. No pneumothorax, p leural effusion or overt pulmonary edema. No airspace consolidation typical for pneumonia. Mild linea r subsegmental left basilar atelectasis. Degenerative changes of the shoulders and spine. Multiple lo ose bodies of the left subscapularis recess measure up to 1.2 cm. IMPRESSION: Cardiomegaly without acute process. ACT 112: Negative or not required by law. The above report was generated using voice recognition software. It may contain grammatical, syntax o r spelling errors. Electronically signed by: Slava Delgado M.D. 07/04/2020 1:09 PM
[2020-07-04 13:37] LABS: Bacteria Urine 3+ (Negative); WBC Urine >30 /hpf (0-5)
[2020-07-04] MEDS ORDERED: IOVERSOL 100ml IV ONE (13:59)
--- NOTE | 2020-07-04 14:14 | CT Scan Report ---
CT abd pelvis IV con only CT DOSE: 675.04 mGy.cm HISTORY: Nausea and nvd, poss divertic or obstruc TECHNIQUE: Multiaxial CT images of the abdomen and pelvis were performed following the use of intrave nous contrast. A dose lowering technique was utilized adhering to the principles of ALARA. COMPARISON STUDY: None. FINDINGS: Lung bases are clear. Liver spleen and pancreas appear unremarkable. Several small gallstones within the gallbladder lumen. There are fatty replacement changes of the pancreas. There is a 3 cm right renal cyst. A nonobstructing calcification is present within the right renal up per pole collecting system as well as in the right renal pelvis. There is moderate small bowel wall thickening throughout. The colonic pattern is considered nonobstructive. There is small amount of free fluid within the pelv ic cul-de-sac. IMPRESSION: 1. Generalized small bowel enteritis. 2. No evidence for abscess collection or obstruction. 3. Several nonobstructing right renal calcifications 4. Small amount of reactive free fluid within the pelvic cul-de-sac. 5. Several small gallstones. 3. Small amount of free fluid within the pelvic cul-de-sac presumably reactive. ACT 112: Negative or not required by law. The above report was generated using voice recognition software. It may contain grammatical, syntax or spelling errors. Electronically signed by: Tao Mustafa M.D. 07/04/2020 2:13 PM
[2020-07-04] MEDS ORDERED: cefTRIAXone SODIUM 1,000 MG/50 ML BAG IV STA (14:36)
[2020-07-04] MEDS ORDERED: SODIUM CHLORIDE 0.9% 1000ML 500 ML IV ONE (14:36)
--- NOTE | 2020-07-04 16:51 | History & Physical Report ---
Date of Service July 04, 2020 Assessment & Plan (1) Gastroenteritis: -Admit to [facility] for observation -Continue IV fluids, Zofran, Tylenol, other supportive care -Allow full liquid diet, advance as tolerated - CT abd pelvis reviewed: 1. Generalized small bowel enteritis. 2. No evidence for abscess collection or obstruction. 3. Several nonobstructing right renal calcifications 4. Small amount of reactive free fluid within the pelvic cul-de-sac. 5. Several small gallstones. -Diarrhea has been going on for approximately 2 to 3 days, will send stool cultures, no recent antibiotic use, patient has used Imodium [id number] in the past (2) UTI (urinary tract infection): -UA appears to be grossly infected -Follow culture -Continue IV Rocephin -WBC = 14 K, afebrile (3) Dementia: -Chronic, progressing over the past year, continue donepezil (4) Hypertension: -BP well controlled, continue metoprolol XL 50 mg daily, Imdur 60 mg daily, (5) Hypothyroidism: -Continue levothyroxine 100 mcg daily (6) Dyslipidemia: -Continue atorvastatin 40 mg HS (7) CAD (coronary artery disease): -Continue Plavix 75 mg daily, beta-blockade, statin therapy (8) TIA (transient ischemic attack): -History of such, follows with Dr. Wild, neurology as an outpatient (9) Osteoarthritis: - R knee chronic pain, PT/OT consults, continue tramadol prn, tylenol prn (10) DVT prophylaxis: - teds, Plavix CODE: Full code Dispo: From home, likely to remain in the hospital x 1-2 days, CM to help with home health agency set up, family and patient do not want placement in long-term facility History of Present Illness Primary Care Provider: SEYMOUR Houser This is an 84 yo F with PMhx of CAD, HTN, HLD, chronic cerebral ischemia, dementia, neuropathy, hypothyroidism, obesity, angina pectoris who presents with onset of diarrhea which has been going on for 3-4 days, nausea and vomiting occurred once today. She lives along but does have family who comes in to check on her every day. Her sister lives down the street and helps her with her morning medications as well as eyedrops, and then 1 of her 7 children comes to visit in the evening. She admits to having increased urination and burning for a few days however she is unclear as to when it started due to her dementia. She has been tolerating oral intake without difficulty prior to today when she was nauseous. Her son is present with her at bedside and reports that she appears much better at this point in time compared to earlier. Allergies Allergy/AdvReac Type Severity Reaction Status Date / Time Penicillins Allergy Unknown RASH Verified 07/04/20 15:05 cephalexin [From Keflex] Allergy Unknown Verified 07/04/20 15:05 cortisone AdvReac Unknown REDNESS Verified 07/04/20 15:05 AND RED NOSE Home Medications Home Medications Medication Instructions Recorded Confirmed Type atorvastatin 40 mg PO HS 04/20/19 07/04/20 History duloxetine 30 mg PO QAM 04/20/19 07/04/20 History isosorbide mononitrate 60 mg PO QAM 04/20/19 07/04/20 History levothyroxine 100 mcg PO QAM 04/20/19 07/04/20 History meclizine 25 mg PO TID PRN 04/20/19 07/04/20 History meloxicam 7.5 mg PO DAILY 04/20/19 07/04/20 History metoprolol succinate 50 mg PO QAM 04/20/19 07/04/20 History montelukast 10 mg PO DAILY 04/20/19 07/04/20 History urzfvjht-xxtp-JQ-calcium-mins 1 tab PO DAILY 04/20/19 07/04/20 History [Women's One Daily] riboflavin (vitamin B2) 400 mg PO DAILY 04/20/19 07/04/20 History clopidogrel 75 mg tablet 75 mg PO DAILY tab 08/15/19 07/04/20 History diclofenac sodium 1 % topical gel 1 % TOPICAL QID PRN gm 08/15/19 07/04/20 History nitroglycerin 0.4 mg sublingual 0.4 mg SL Q5M PRN #25 tab 10/05/19 07/04/20 Rx tablet tramadol 25 mg PO DAILY PRN 11/28/19 07/04/20 History cholecalciferol (vitamin D3) 25 1,000 units PO DAILY tab 06/02/20 07/04/20 History mcg (1,000 unit) tablet vit C 250 mg-E 200 unit-zinc 40 1 tab PO BID 06/02/20 07/04/20 History mg-copper 1 nj-nqzcbr-ftegtf capsule donepezil 10 mg PO DAILY 07/04/20 07/04/20 History Past Med/Surg History Medical History CAD (coronary artery disease) Chronic cerebral ischemia Dementia Dyslipidemia Hypertension Hypothyroidism (05/25/13) Lyme disease Neuropathy TIA (transient ischemic attack) Surgical History H/O dilation and curettage Hx of cataract surgery Family History Unknown Lung disease Acute myocardial infarction Dementia Father Coronary heart disease Social History Smoking Status: Never smoker Hx Alcohol Use: No Hx Substance Use: No Preferred Language: Pashto Communication Ability: Effective Speed Reading Teacher Required: No Beliefs That Will Affect Care: None marital status: / Current Living Situation: Alone How many Children do You have: 7 Feels Safe at Home: Yes Safety Concerns: Feels Safe At This Time Review of Systems Review of Systems: Constitutional: No fever, sweats or chills Eyes: No diplopia, no worsening or blurred vision ENT: normal hearing, no trouble swallowing Respiratory: No cough, sputum, dyspnea at rest or on exertion Cardiovascular: No chest pain, tightness or palpitations Abdomen: + Slight abdominal pain, nausea, vomiting, diarrhea as per HPI Musculoskeletal: + Right chronic knee pain and swelling, otherwise no joint pain, calf pain, swelling Neurologic: No weakness, numbness/tingling, or balance problems, + dementia Psychiatric: No anxiety or depression Skin: No rash or itch Physical Exam Physical Exam: General: awake, alert, no apparent distress, + intermittently confused, cannot recall details of some things, chatty Head: Normocephalic, atraumatic ENT: PERRL, EOMI, no pharyngeal exudate, mucous membranes moist Chest: Clear to auscultation, on room air, no adventitious breath sounds Cardiac: Regular rate and rhythm, no murmur, no JVD, normal peripheral pulses, good capillary refill Abdominal: NABS x 4 quadrants, soft, nondistended, generalized tenderness with palpation, no rebound, guarding or tenderness Extremities: Right knee swelling, pain with extension and flexion, otherwise normal inspection, no peripheral edema or erythema, calfs nontender to palpation Psych: Normal mood and affect Neuro: AAO x 3, strength intact bilaterally and rated 5/5, no gross motor deficits, speech is clear, no peripheral sensory deficits Skin: no rash or erythema Results & Data Results & Data ([facility]) Vital Signs (Past 12 Hours) Vital Signs Temp Pulse Pulse Resp BP BP Pulse Ox 07/04/20 16:01 78 20 125/59 L 95 07/04/20 15:01 73 23 124/99 95 07/04/20 13:41 67 20 115/63 97 07/04/20 12:11 93 07/04/20 11:42 37 C 78 20 98/71 L [address] abd pelvis IV con only CT DOSE: 675.04 mGy.cm HISTORY: Nausea and nvd, poss divertic or obstruc TECHNIQUE: Multiaxial CT images of the abdomen and pelvis were performed following the use of intravenous contrast. A dose lowering technique was utilized adhering to the principles of ALARA. COMPARISON STUDY: None. FINDINGS: Lung bases are clear. Liver spleen and pancreas appear unremarkable. Several small gallstones within the gallbladder lumen. There are fatty replacement changes of the pancreas. There is a 3 cm right renal cyst. A nonobstructing calcification is present within the right renal upper pole collecting system as well as in the right renal pelvis. There is moderate small bowel wall thickening throughout. The colonic pattern is considered nonobstructive. There is small amount of free fluid within the pelvic cul-de-sac. IMPRESSION: 1. Generalized small bowel enteritis. 2. No evidence for abscess collection or obstruction. 3. Several nonobstructing right renal calcifications 4. Small amount of reactive free fluid within the pelvic cul-de-sac. 5. Several small gallstones. 3. Small amount of free fluid within the pelvic cul-de-sac presumably reactive. XR chest 1V portable HISTORY: 84 years-old Female weakness acute weakness COMPARISON: Chest CT 11/28/2019, chest radiograph 04/20/2019 TECHNIQUE: Semierect portable AP view of the chest FINDINGS: Cardiac silhouette is enlarged, unchanged. Mild right hemidiaphragmatic elevation. No pneumothorax, pleural effusion or overt pulmonary edema. No airspace consolidation typical for pneumonia. Mild linear subsegmental left basilar atelectasis. Degenerative changes of the shoulders and spine. Multiple loose bodies of the left subscapularis recess measure up to 1.2 cm. IMPRESSION: Cardiomegaly without acute process. ECG Additional Comments: 04-JUL-2020 11:57:17 [facility]-EDSTAT ROUTINE RETRIEVAL Sinus rhythm with Premature supraventricular complexes Left bundle branch block Abnormal ECG When compared with ECG of 05-DEC-2017 13:31, Premature supraventricular complexes are now Present SD interval has decreased Nonspecific T wave abnormality, worse in Lateral leads 25mm/s 10mm/mV 150Hz 9.0.9 12SL 241 TYE: 15 Referred by: REFERRED SELF Unconfirmed Vent. rate 74 BPM SD interval 164 ms QRS duration 134 ms QT/QTc 442/490 ms P-R-T axes * -6 162 Code Status & VTE Plan Code Status Full code-discussed with the patient and her son, Deven, at bedside VTE Prophylaxis Plan VTE Prophylaxis will be ordered: Yes Supervising Physician Co-Signing Physician Notes Attending Attestation and Admission Note - Pt seen/examined, chart reviewed, admission care plan d/w VELIA Blas. I agree w/ the gonsalez components of her admission documentation. 84yo female with CAD, HTN, hypothyroidism, and dementia presenting with nausea, emesis, and diarrhea along with UTI symptoms. During my assessment patient reports feeling "much better than earlier." Resting comfortably during my assessment. PMH, PSH, allergies, meds, sochx, famhx - reviewed VSS, no fever gen - NAD, pleasant mouth - MM dry skin - poor turgor heart - RRR, s1 s2 lungs - CTA b/l abd - soft, mildly distended, BS+, NT ext - no edema psych - slight confusion labs reviewed CT abd/pelvis - gallstones, enteritis of small bowel A/P: 1. gastroenteritis - likely viral, but agree with stool cx and c diff to be complete. Supportive care, IV fluids, time. See below in #1 re: gallstones. 2. gallstones - suspect asymptomatic from such - no abd pain at present; however total bili 2.1 today. LOW THRESHOLD for checking RUQ u/s to r/o smoldering acute cholecystitis if she has persistent GI symptoms, etc. Repeat LFTs in am. 3. UTI - rocephin. 4. dehydration - NS hydration; bmp in am. 5. dementia 6. PT, OT evals Cedrick Jarrell MD PG Care Time/CCT Total # of Minutes Spent Total Time Spent with Patient: Total time spent is greater than 50% in coordination of care (as documented) at patient's floor/unit and/or counseling patient: Coding Level of Care Code 65358 OBS Care - Level 3 Diagnoses Gastroenteritis K52.9 UTI (urinary tract infection) N39.0 Dementia F03.90 Hypertension I10 Hypothyroidism E03.9 Dyslipidemia E78.5 CAD (coronary artery disease) I25.10 TIA (transient ischemic attack) G45.9 Osteoarthritis M19.90 DVT prophylaxis Z29.9
[2020-07-04] MEDS ORDERED: CARBOHYDRATES FOR HYPOGLYCEMIA PO PRN (17:52)
[2020-07-04] MEDS ORDERED: GLUCOSE 10 TABS/TUBE PO PRN (17:52)
[2020-07-04] MEDS ORDERED: DICLOFENAC SOD 1% GEL 100 GM TUBE EXT PRN (17:52)
[2020-07-04] MEDS ORDERED: GLUCAGON FOR INJ 1 MG VIAL SQ PRN (17:52)
[2020-07-04] MEDS ORDERED: ONDANSETRON INJ 2 MG/ML 2 ML VIAL IV PRN (17:52)
[2020-07-04] MEDS ORDERED: GLUCOSE 40% GEL 15 GM TUBE PO PRN (17:52)
[2020-07-04] MEDS ORDERED: NITROGLYCERIN SL 0.4 MG/TAB TAB SL PRN (17:52)
[2020-07-04] MEDS ORDERED: MECLIZINE HCL 25 MG TAB PO PRN (18:27)
[2020-07-04] MEDS ORDERED: INSULIN ASPART 100 UNITS/ML 3 ML PEN SC SCH (18:30)
[2020-07-04] MEDS: SODIUM CHLORIDE 0.9% 1000ML 1,000 ML IV SCH (19:26)
[2020-07-04] MEDS: HEPARIN SOD 5,000 UNIT/0.5 ML VIAL SQ SCH (21:44)
[2020-07-04] MEDS: ATORVASTATIN 40 MG TAB PO SCH (21:45)
[2020-07-04] MEDS: INSULIN ASPART 100 UNITS/ML 3 ML PEN SC SCH (22:24)
[2020-07-05] MEDS: LEVOTHYROXINE SODIUM 100 MCG TABLET PO SCH (04:20)
[2020-07-05] MEDS: SODIUM CHLORIDE 0.9% 1000ML 1,000 ML IV SCH ×2 (04:20→11:53)
[2020-07-05] MEDS: HEPARIN SOD 5,000 UNIT/0.5 ML VIAL SQ SCH ×3 (05:11→21:29)
--- NOTE | 2020-07-05 07:08 | Electrocardiogram Report ---
Test Reason : Blood Pressure : / mmHG Vent. Rate : 074 BPM Atrial Rate : 074 BPM P-R Int : 164 ms QRS Dur : 134 ms QT Int : 442 ms P-R-T Axes : 000 -06 162 degrees QTc Int : 490 ms Sinus rhythm with Premature supraventricular complexes Left bundle branch block Abnormal ECG When compared with ECG of 05-DEC-2017 13:31, Premature supraventricular complexes are now Present TX interval has decreased Confirmed by Eliot Zavala ([id number]) on 07/05/2020 7:07:51 AM Referred By: REFERRED SELF Confirmed By:Eliot Zavala
[2020-07-05 08:13] LABS: Hematocrit (blood only) 37.7 % (37-47); Hemoglobin 12.6 g/dL (12.0-16.0); Mean Corpuscular Hemoglobin 30.2 pg (25-34); Mean Corpuscular Hgb Conc 33.4 g/dL (32-36); Mean Corpuscular Volume 90.4 fL (80-100); Platelet Count 151 K/uL (130-400); RDW Coefficient of Variation 13.6 % (11.5-14.5); RDW Standard Deviation 45.2 fL (36.4-46.3); Red Blood Count 4.17 M/uL (4.2-5.4)
[2020-07-05] MEDS: METOPROLOL SUCC 50MG EXT REL TAB PO SCH (08:44)
[2020-07-05] MEDS: CHOLECALCIFEROL 1,000 UNITS 25 MCG TAB PO SCH (08:44)
[2020-07-05] MEDS: DONEPEZIL HCL 10 MG TAB PO SCH (08:44)
[2020-07-05] MEDS: CLOPIDOGREL BISULFATE 75 MG TAB PO SCH (08:44)
[2020-07-05] MEDS: MULTIVITAMIN TAB PO SCH (08:44)
[2020-07-05] MEDS: MONTELUKAST SODIUM 10 MG TABLET PO SCH (08:44)
[2020-07-05] MEDS: CEROVITE ADV FORMULA TAB PO SCH (08:44)
[2020-07-05] MEDS: ISOSORBIDE MONO EXTENDED REL 60 MG TABCR PO SCH (08:44)
[2020-07-05] MEDS: DULOXETINE HCL 30 MG CAP PO SCH (08:44)
[2020-07-05] MEDS: MELOXICAM 7.5 MG TAB PO SCH (08:45)
[2020-07-05 08:53] LABS: Albumin Globulin Ratio 0.8 (0.9-2); Albumin Level 2.3 gm/dl (3.4-5.0); BUN Creatinine Ratio 41.5 (10-20); Bilirubin,Total 1.2 mg/dl (0.2-1); Calcium 8.1 mg/dl (8.5-10.1); Creatinine Clr Calc Pharmacy 69.7 ml/min; Est GFR (African American) 96.1; Est GFR (Non-African American) 82.9; Globulin 2.9 gm/dl (2.5-4.0); Potassium 3.6 mmol/L (3.5-5.1); Total Protein 5.2 gm/dl (6.4-8.2)
[2020-07-05] MEDS ORDERED: NON-FORMULARY MEDICATION (Riboflavin (Vitamin B2) 400 MG) PO SCH (09:00)
[2020-07-05] MEDS: INSULIN ASPART 100 UNITS/ML 3 ML PEN SC SCH ×4 (09:18→21:20)
[2020-07-05 12:28] LABS: Estimated Average Glucose 160 mg/dl; Hemoglobin A1C 7.2 % (4.5-5.6)
--- NOTE | 2020-07-05 14:16 | XRay Report ---
XR KUB/Abdomen 1 view CLINICAL HISTORY: hypoactive BS, hx obstruction COMPARISON STUDY: CT scan dated 07/04/2020 FINDINGS: There is right-sided nephrolithiasis. There are multiple gas-filled small bowel loops measu ring up to 2 cm in diameter. There is equivocal bowel wall edema. There is no pathologic bowel dilata tion to indicate bowel obstruction. There is a lumbar scoliosis. Degenerative changes are present wit hin the cervical spine. IMPRESSION: 1. No conventional radiographic evidence of bowel obstruction 2. Possible small bowel wall edema 3. Right-sided nephrolithiasis ACT 112: Negative or not required by law. Electronically signed by: Juan Caruso M.D. 07/05/2020 2:14 PM
[2020-07-05] MEDS ORDERED: cefTRIAXone SODIUM 1,000 MG in DEXTROSE 5% 50 ML IV SCH (15:00)
--- NOTE | 2020-07-05 15:38 | Hospitalist Progress Note ---
Date of Service July 05, 2020 Assessment & Plan (1) Gastroenteritis: * Admitted with 2-3 days diarrhea, no recent abx usage and has used imodium OTC in the past. Hx obstruction in the past. * Continue supportive treatment -- IVF, tylenol/zofran prn. * Stool studies ordered, but patient without BM since admission * - CT abd pelvis reviewed: 1. Generalized small bowel enteritis. 2. No evidence for abscess collection or obstruction. 3. Several nonobstructing right renal calcifications 4. Small amount of reactive free fluid within the pelvic cul-de-sac. 5. Several small gallstones --> would have low threshold to obtain RUQ U/S given stones and elevated bilirubin (is trending down, 1.2 from 2.1 with hydration) * KUB obtained which shows possible bowel wall edema, R sided nephrolithiasis, no evidence of bowel obstruction * ABdominal pain improved this evening, wanting food --> advanced to soft, bite size as patient without dentures present (2) UTI (urinary tract infection): * UA appeared infected --> culture with E.coli. Previous e.coli Nov 2019 with resistance to unasyn, cefazoli * On day #2 Ceftriaxone --> will continue for now, likely transition to cephalosporin however will need to confirm allergy to keflex, listed as "unknown" * WBC trending down, 14.6 k on admis --> 9k * UO acceptable (3) Dementia: * Chronic, progressing over the past year, continue donepezil * Lives at home and has family support with seven children who come and spend the night with her daily. Family would like her to return home with support per discussion with CM this weekend (4) Hypertension: * Recently discontinued lisinopril, ranexa and diuretic for hypotension * BP well controlled, currently 127/56 * Continue metoprolol XL 50 mg daily, Imdur 60 mg daily * Continue to monitor (5) Hypothyroidism: * TSH 1.72 in 2018. Will repeat TSH with AM labs given now with constipation and has not been checked. Also with progressive dementia * Continue levothyroxine 100 mcg daily (6) Dyslipidemia: * Continue atorvastatin 40 mg HS (7) CAD (coronary artery disease): * Hx unsuccessful PCI to LAD. Cardiac Cath 07/31/12 with small to medium caliber LAD (type 1). Prox LAD 90% followed by 60% just prox to takeoff of Diag 1. Remainder of ostial - prox LAD 40%. mid LAD 30%. Very large Cx without significant CAD. Large, dominant RCA with 20 - 30% prox stenosis. Right to left collaterals noted. Anterolateral wall mildly hypokinetic. EF 50-55%. No MR. Normal LVEDP. No . * Attempts of LAD PCI done at [facility] without success after 90 min and 10-12 different guidewires, which were unable to be advanced beyond proximal stenosis. There was an even more severe stenosis approximately 5 mm beyond the 90% stenosis. * Opted for medical management and follows with Dr. Zavala locally * If needed in future, per notes, could attempt again by Dr. Li ([facility] interventional[place]). Patient denied pursing surgical intervention. ECHO 2018 with normal LV systolic function, type I diastolic dysfunction with mild L atrial dilation. * Continue plavix 75mg, metoprolol 50mg, atorvastatin 40mg HS * Lisinopril d/c per Sally's note for hypotension (8) TIA (transient ischemic attack): * History of such, follows with Dr. 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 Passing gas but no further BM as she had been having diarrhea prior to admission. Mild headache this morning that resolved on its own. Did have some nausea but no vomiting. Was able to take a couple bites of cereal and drank some juice this morning. Denies and flank or back pain. Minimal abdominal discomfort but denies pain. No radiation. Discussed likely UTI but awaiting cultures prior to switching to oral agent. She states she has had weight loss, poor appetite and early satiety and states she does endorse alternating diarrhea and constipation although does appear to have some dementia. Denies any blood in urine or stool that she has noticed. She denies ever having a colonoscopy in the past. States she has had a bowel obstruction in the past and had previously been on stool softeners but is no longer on them. Review of Systems Review of Systems: All systems reviewed & are unremarkable except as noted in HPI & below Physical Exam Constitutional: WD/WN, vitals as above + obese; no acute distress ENMT: Ears: + hearing impairment (hard of hearing) edentulous , dry mm Neck: normal visual inspection Respiratory: able to speak in complete sentences; no respiratory distress and no labored breathing Auscultation: lungs clear to auscultation bilaterally and + diminished lung sounds; no crackles and no wheezes Cardiovascular: RRR, no murmur, no edema Gastrointestinal (Abdomen): Inspection/Auscultation: + hypoactive bowel sounds Percussion/Palpation: + abdomen tender (minimal, generalized) and abdomen soft; no guarding and abdomen not rigid Skin: + turgor decreased warm, dry Neurologic: moves all extremities and awake Psychiatric: intermittent confusion Lymphatic: no cervical or axillary lymphadenopathy Results & Data Results & Data ([facility]) Vital Signs (Past 12 Hours) Vital Signs Temp Pulse Resp BP Pulse Ox 07/05/20 07:23 36.5 C 57 L 16 149/76 H 97 Laboratory Results 07/05/20 07/05/20 07/05/20 Range/Units 12:25 08:06 07:48 WBC (4.8-10.8) K/uL RBC (4.2-5.4) M/uL Hgb (12.0-16.0) g/dL Hct (37-47) % MCV (80-100) fL MCH (25-34) pg MCHC (32-36) g/dL RDW Std Deviation (36.4-46.3) fL RDW Coeff of Suha (11.5-14.5) % Plt Count (130-400) K/uL MPV (7.4-10.4) fL Sodium (136-145) mmol/L Potassium (3.5-5.1) mmol/L Chloride (98-107) mmol/L Carbon Dioxide (21-32) mmol/L Anion Gap (3-11) BUN (7-18) mg/dl Creatinine (0.6-1.2) mg/dl Est Cr Clr Drug Dosing ml/min Est GFR ( Amer) Est GFR (Non-Af Amer) BUN/Creatinine Ratio (10-20) Glucose (70-99) mg/dl POC Glucose 108 H 111 H (70-99) mg/dl Estimat Average Glucose 160 mg/dl Hemoglobin A1c 7.2 H (4.5-5.6) % Calcium (8.5-10.1) mg/dl Total Bilirubin (0.2-1) mg/dl AST (15-37) U/L ALT (12-78) U/L Alkaline Phosphatase (45-117) U/L Total Protein (6.4-8.2) gm/dl Albumin (3.4-5.0) gm/dl Globulin (2.5-4.0) gm/dl Albumin/Globulin Ratio (0.9-2) 07/05/20 07/05/20 07/04/20 Range/Units 07:48 07:48 21:09 WBC 9.00 (4.8-10.8) K/uL RBC 4.17 L (4.2-5.4) M/uL Hgb 12.6 (12.0-16.0) g/dL Hct 37.7 (37-47) % MCV 90.4 (80-100) fL MCH 30.2 (25-34) pg MCHC 33.4 (32-36) g/dL RDW Std Deviation 45.2 (36.4-46.3) fL RDW Coeff of Suha 13.6 (11.5-14.5) % Plt Count 151 (130-400) K/uL MPV 10.0 (7.4-10.4) fL Sodium 139 (136-145) mmol/L Potassium 3.6 (3.5-5.1) mmol/L Chloride 109 H (98-107) mmol/L Carbon Dioxide 27 (21-32) mmol/L Anion Gap 3.0 (3-11) BUN 26 H (7-18) mg/dl Creatinine 0.63 D (0.6-1.2) mg/dl Est Cr Clr Drug Dosing 69.7 ml/min Est GFR ( Amer) 96.1 Est GFR (Non-Af Amer) 82.9 BUN/Creatinine Ratio 41.5 H (10-20) Glucose 94 (70-99) mg/dl POC Glucose 123 H (70-99) mg/dl Estimat Average Glucose mg/dl Hemoglobin A1c (4.5-5.6) % Calcium 8.1 L (8.5-10.1) mg/dl Total Bilirubin 1.2 H (0.2-1) mg/dl AST 19 (15-37) U/L ALT 16 (12-78) U/L Alkaline Phosphatase 81 (45-117) U/L Total Protein 5.2 L (6.4-8.2) gm/dl Albumin 2.3 L (3.4-5.0) gm/dl Globulin 2.9 (2.5-4.0) gm/dl Albumin/Globulin Ratio 0.8 L (0.9-2) Diagnostic Findings IMPRESSION: 1. No conventional radiographic evidence of bowel obstruction 2. Possible small bowel wall edema 3. Right-sided nephrolithiasis PG Care Time/CCT Total # of Minutes Spent Total Time Spent with Patient: Total time spent is greater than 50% in coordination of care (as documented) at patient's floor/unit and/or counseling patient: Coding Level of Care Code 54527 Subseq Hosp Care Lvl 3 Diagnoses Gastroenteritis K52.9 UTI (urinary tract infection) N39.0 Dementia F03.90 Hypertension I10 Hypothyroidism E03.9 Dyslipidemia E78.5 CAD (coronary artery disease) I25.10 TIA (transient ischemic attack) G45.9 Osteoarthritis M19.90 Diabetes E11.9 DVT prophylaxis Z29.9
[2020-07-05] MEDS ORDERED: DEXTROSE 50% 50 ML SYRINGE IV PRN (17:27)
[2020-07-05] MEDS ORDERED: CARBOHYDRATES FOR HYPOGLYCEMIA PO PRN (17:27)
[2020-07-05] MEDS ORDERED: GLUCOSE 10 TABS/TUBE PO PRN (17:27)
[2020-07-05] MEDS ORDERED: GLUCOSE 40% GEL 15 GM TUBE PO PRN (17:27)
[2020-07-05] MEDS ORDERED: GLUCAGON FOR INJ 1 MG VIAL SQ PRN (17:27)
[2020-07-05] MEDS ORDERED: INSULIN ASPART 100 UNITS/ML 3 ML PEN SC SCH (21:00)
[2020-07-05] MEDS: ATORVASTATIN 40 MG TAB PO SCH (21:29)
[2020-07-06] MEDS: HEPARIN SOD 5,000 UNIT/0.5 ML VIAL SQ SCH ×3 (05:27→21:01)
[2020-07-06] MEDS: LEVOTHYROXINE SODIUM 100 MCG TABLET PO SCH (05:27)
[2020-07-06 07:38] LABS: Hematocrit (blood only) 35.7 % (37-47); Hemoglobin 11.9 g/dL (12.0-16.0); Mean Corpuscular Hemoglobin 29.3 pg (25-34); Mean Corpuscular Hgb Conc 33.3 g/dL (32-36); Mean Corpuscular Volume 87.9 fL (80-100); Mean Platelet Volume 9.4 fL (7.4-10.4); Platelet Count 153 K/uL (130-400); RDW Coefficient of Variation 13.2 % (11.5-14.5); RDW Standard Deviation 42.7 fL (36.4-46.3); Red Blood Count 4.06 M/uL (4.2-5.4); White Blood Count 6.56 K/uL (4.8-10.8)
[2020-07-06] MEDS: DONEPEZIL HCL 10 MG TAB PO SCH ×2 (08:12→08:31)
[2020-07-06] MEDS: MONTELUKAST SODIUM 10 MG TABLET PO SCH ×2 (08:12→08:31)
[2020-07-06] MEDS: METOPROLOL SUCC 50MG EXT REL TAB PO SCH ×2 (08:12→08:31)
[2020-07-06] MEDS: MULTIVITAMIN TAB PO SCH ×2 (08:13→08:31)
[2020-07-06] MEDS: CLOPIDOGREL BISULFATE 75 MG TAB PO SCH ×2 (08:13→08:31)
[2020-07-06] MEDS: DULOXETINE HCL 30 MG CAP PO SCH ×2 (08:13→08:31)
[2020-07-06] MEDS: ISOSORBIDE MONO EXTENDED REL 60 MG TABCR PO SCH ×2 (08:13→08:31)
[2020-07-06] MEDS: CEROVITE ADV FORMULA TAB PO SCH ×2 (08:13→08:31)
[2020-07-06] MEDS: CHOLECALCIFEROL 1,000 UNITS 25 MCG TAB PO SCH ×2 (08:13→08:31)
[2020-07-06] MEDS: MELOXICAM 7.5 MG TAB PO SCH ×2 (08:14→08:32)
[2020-07-06] MEDS ORDERED: Nursing to Pharmacy Communication SCH (08:30)
--- NOTE | 2020-07-06 08:52 | Ultrasound Report ---
US gallbladder HISTORY: 84 years-old Female elevated tbili, diarrhea, abdominal pain acute generalized abdominal pa in with diarrhea COMPARISON: CT abdomen and pelvis 07/04/2020 TECHNIQUE: Multiple real-time sonographic images of the abdominal right upper quadrant were obtained assessing grayscale appearance and color flow FINDINGS: Heterogeneous appearance of the pancreas. Unremarkable appearance of the liver. Stone and sludge fill ed gallbladder with mobile and nonmobile cholelithiasis. The gallbladder appears edematous and is mil dly thickened at 4 mm. No definite pericholecystic fluid. Sonographic Tolliver sign reported as negativ e. Common bile duct measures 7 mm, normal for patient age. Right-sided nephrolithiasis redemonstrated without hydronephrosis. Cyst of the superior pole right ki dney, 2.7 cm. Right pleural effusion incidentally noted. IMPRESSION: 1. Stone and sludge filled gallbladder with mild distention and wall thickening. No pericholecystic f luid and the sonographic Tolliver sign was reported as negative. These findings should be correlated wi th clinical presentation and nuclear medicine hepatobiliary scan to exclude acute cholecystitis. 2. No biliary ductal dilation. 3. Right nephrolithiasis. ACT 112: Negative or not required by law. The above report was generated using voice recognition software. It may contain grammatical, syntax o r spelling errors. Electronically signed by: Slava Delgado M.D. 07/06/2020 8:51 AM
[2020-07-06] MEDS ORDERED: PIPERACILL/TAZOBAC CONSULT ACTIVE PRN (09:34)
[2020-07-06] MEDS ORDERED: PIPERACILLIN/TAZOBACTAM 3.375 GM in DEXTROSE 5% 100 ML IV STA (09:37)
[2020-07-06] MEDS: INSULIN ASPART 100 UNITS/ML 3 ML PEN SC SCH ×3 (09:56→18:24)
[2020-07-06 09:58] LABS: Albumin Level 2.3 gm/dl (3.4-5.0); BUN Creatinine Ratio 29.4 (10-20); Bilirubin Direct 0.3 mg/dl (0-0.2); Calcium 7.9 mg/dl (8.5-10.1); Creatinine Clr Calc Pharmacy 86.6 ml/min; Est GFR (African American) 103.1; Est GFR (Non-African American) 88.9; Potassium 3.5 mmol/L (3.5-5.1)
[2020-07-06] MEDS ORDERED: MoRPHine SULFATE 2 MG/ML CARP IV ONE (10:00)
[2020-07-06 10:10] LABS: Bilirubin,Total 0.7 mg/dl (0.2-1); Thyroid Stimulating Hormone 2.43 uIu/ml (0.300-4.500); Total Protein 5.1 gm/dl (6.4-8.2)
--- NOTE | 2020-07-06 10:40 | Ultrasound Report ---
US venous doppler LE RT HISTORY: 84 years-old Female r/o DVT acute pain and swelling of the right lower extremity COMPARISON: Duplex venous Doppler study 04/20/2018 TECHNIQUE: Multiple real-time sonographic images of the right lower extremity deep venous structures were obtained assessing grayscale appearance, color and spectral flow FINDINGS: Normal flow, compressibility, phasicity and augmentation of the right lower extremity deep venous str uctures. Moderately complex Arevalo's cyst, 6.0 x 2.7 x 2.1 cm. IMPRESSION: No sonographic evidence of deep venous thrombosis. ACT 112: Negative or not required by law. The above report was generated using voice recognition software. It may contain grammatical, syntax o r spelling errors. Electronically signed by: Slava Delgado M.D. 07/06/2020 10:39 AM
--- NOTE | 2020-07-06 12:52 | Hospitalist Progress Note ---
Date of Service July 06, 2020 Assessment & Plan (1) Small bowel obstruction: * Admitted with 2-3 days diarrhea, stool studies pending. No recent abx usage and has used imodium OTC in the past. Hx obstruction in the past managed conservatively. No hx abdominal surgeries per her account and no abdominal incision/scarring to suggest previous abd surgeries. By report, never had a colonoscopy in the past * CT abd pelvis with generalized small bowel enteritis, no evidence for abscess or obstruction, several nonobstructing R renal calcifications, reactive fluid within pelvic cul-de-sace. Several small gallstones * TODAY: * KUB stat with persistent mildly dilated loops of air-filled small bowel. Concerning given exam for low grade bowel obstruction, especially given w/o BS in AM and increased abd pain * Serial abdominal exams --> in the afternoon, patient with at least hypoactive BS, less tender on exam --> continue to monitor closely * NPO -- will give plavix, metoprolol, but hold other meds * IVF NSS @125cc/hr - will add 40meq KCl * General Surgery consulted - appreciate assistance * Mag, phos added to labs, pending --> keep K >4, Mag >2. replace as needed * Continue to monitor (2) Gastroenteritis: (3) Gallbladder anomaly: * CTAP as above * -->RUQ U/S with stone and sludge filled gallbladder and wall thickening. No pericholecystic fluid and sonographic Tolliver reported negative (although patient verbally stated pain with study during our conversation). * Patient with Tbili elevated at 2.1 on admission and direct still elevated on AM labs * HIDA scan ordered stat -- normal per report * GI consulted -- appreciate assistance. ?MRCP * Trend labs (4) UTI (urinary tract infection): * UA appeared infected --> culture with E.coli. Previous e.coli Nov 2019 with resistance to unasyn, cefazoli * received 2 days of Ceftriaxone and then transitioned to Zosyn for gallbladder coverage * WBC trending down although see above (5) Dementia: * Chronic, progressing over the past year, hold donepezil while NPO for PSBO/ileus * Lives at home and has family support with seven children who come and spend the night with her daily. Family would like her to return home with support per discussion with CM this weekend (6) Hypertension: * Recently discontinued lisinopril, ranexa and diuretic for hypotension * BP well controlled, currently 135/59 * Continue metoprolol XL 50 mg daily, Imdur 60 mg daily * Continue to monitor (7) Hypothyroidism: * TSH 1.72 in 2018. * TSH 2.430 * Continue levothyroxine 100 mcg daily (8) Dyslipidemia: * Holding atorvastatin 40 mg HS as NPO as above (9) CAD (coronary artery disease): * Hx unsuccessful PCI to LAD. Cardiac Cath 07/31/12 with small to medium caliber LAD (type 1). Prox LAD 90% followed by 60% just prox to takeoff of Diag 1. Remainder of ostial - prox LAD 40%. mid LAD 30%. Very large Cx without significant CAD. Large, dominant RCA with 20 - 30% prox stenosis. Right to left collaterals noted. Anterolateral wall mildly hypokinetic. EF 50-55%. No MR. Normal LVEDP. No . * Attempts of LAD PCI done at [facility] without success after 90 min and 10-12 different guidewires, which were unable to be advanced beyond proximal stenosis. There was an even more severe stenosis approximately 5 mm beyond the 90% stenosis. * Opted for medical management and follows with Dr. Zavala locally * If needed in future, per notes, could attempt again [place]. Li [place] [place] Patient denied pursing surgical intervention. ECHO 2018 with normal LV systolic function, type I diastolic dysfunction with mild L atrial dilation. * On plavix 75mg, metoprolol 50mg, atorvastatin 40mg HS -- will continue plavix/metoprolol given they are vital with severe CAD, statin on hold as NPO * Lisinopril d/c per Sally's note for hypotension (10) TIA (transient ischemic attack): * History of such, follows with Dr. 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 (14) DVT prophylaxis: * Teds, Heparin * US Dopplers NEGATIVE for DVT RLE given edema and increased pain reported to RN this AM CODE: Full code Admission and Anticipated Discharge Date Admission Date: July 04, 2020 Supervising Physician Co-Signing Physician Notes PA Supervision Note: I did not personally see or examine the patient today, but I verified all gonsalez points of VELIA Curry's assessment and plan with the following exceptions/additions: None Subjective Patient evaluated this morning. Stated ultrasound last night was painful when they were using probe along her right abdomen. She states she did have some nausea last night after eating but no emesis. Denies any further bowel movement and has not had one since admission. Denies passing gas either. Denies abdominal pain at this time, although does have some increased right sided discomfort when taking a deep breath. Denies fevers or chills at this time, chest pain, shortness of breath or dysuria. She states she has been voiding in the bathroom without difficulty. Discussed labs and that we will obtain a KUB to r/o obstruction and that we are going to have a HIDA scan to rule out any gallbladder issues given her presentation and findings on ultrasound but that we want to make sure she does not have any obstruction first. During conversation yesterday, patient denied any history of DVT and stated her right leg was more swollen than the left leg chronically, but given increased pain this morning (and told RN she did in fact have a history of DVT), dopplers were obtained and negative. States chronic pain and issues with her knees in the past. Review of Systems Review of Systems: All systems reviewed & are unremarkable except as noted in HPI & below Physical Exam Constitutional: WD/WN, vitals as above + obese; no acute distress Eyes: + anicteric sclerae and PERRL ENMT: Ears: + hearing impairment (hard of hearing) Neck: normal visual inspection Respiratory: able to speak in complete sentences; no respiratory distress and no labored breathing Auscultation: lungs clear to auscultation bilaterally and + diminished lung sounds; no crackles and no wheezes Cardiovascular: Rate/Rhythm: regular rate and regular rhythm Vessels: no JVD Extremities: + edema (R>L, chronic per patient) Gastrointestinal (Abdomen): Inspection/Auscultation: abdomen normal to inspection and + hypoactive bowel sounds Percussion/Palpation: + abdomen tender (exquistely tender with even just stethoscope to entire abdomen. RUQ/RLQ > L), + guarding and abdomen soft; abdomen not rigid umbilical hernia, reducible Musculoskeletal: Head/Neck/Chest: normocephalic and head atraumatic Skin: warm, dry Neurologic: patellar DTR's 2+ bilat, sensation intact and PERRL, EOMI, accommodation nl, no face palsy, no dysarthria moves all extremities and awake Psychiatric: Orientation: alert, oriented to person, oriented to place and cooperative; + not oriented to time Lymphatic: no cervical or axillary lymphadenopathy Results & Data Results & Data ([facility]) Vital Signs (Past 12 Hours) Vital Signs Temp Pulse Resp BP Pulse Ox 07/06/20 07:00 37.1 C 66 16 135/59 L 97 Laboratory Results 07/06/20 07/06/20 07/06/20 Range/Units 11:46 08:16 07:23 WBC 6.56 (4.8-10.8) K/uL RBC 4.06 L (4.2-5.4) M/uL Hgb 11.9 L (12.0-16.0) g/dL Hct 35.7 L (37-47) % MCV 87.9 (80-100) fL MCH 29.3 (25-34) pg MCHC 33.3 (32-36) g/dL RDW Std Deviation 42.7 (36.4-46.3) fL RDW Coeff of Suha 13.2 (11.5-14.5) % Plt Count 153 (130-400) K/uL MPV 9.4 (7.4-10.4) fL Sodium (136-145) mmol/L Potassium (3.5-5.1) mmol/L Chloride (98-107) mmol/L Carbon Dioxide (21-32) mmol/L Anion Gap (3-11) BUN (7-18) mg/dl Creatinine (0.6-1.2) mg/dl Est Cr Clr Drug Dosing ml/min Est GFR ( Amer) Est GFR (Non-Af Amer) BUN/Creatinine Ratio (10-20) Glucose (70-99) mg/dl POC Glucose 92 83 (70-99) mg/dl Calcium (8.5-10.1) mg/dl Total Bilirubin (0.2-1) mg/dl Direct Bilirubin (0-0.2) mg/dl AST (15-37) U/L ALT (12-78) U/L Alkaline Phosphatase (45-117) U/L Total Protein (6.4-8.2) gm/dl Albumin (3.4-5.0) gm/dl Vitamin B12 (211-911) pg/ml TSH (0.300-4.500) uIu/ml 07/06/20 07/06/20 07/05/20 Range/Units 07:23 07:23 20:16 WBC (4.8-10.8) K/uL RBC (4.2-5.4) M/uL Hgb (12.0-16.0) g/dL Hct (37-47) % MCV (80-100) fL MCH (25-34) pg MCHC (32-36) g/dL RDW Std Deviation (36.4-46.3) fL RDW Coeff of Suha (11.5-14.5) % Plt Count (130-400) K/uL MPV (7.4-10.4) fL Sodium 141 (136-145) mmol/L Potassium 3.5 (3.5-5.1) mmol/L Chloride 112 H (98-107) mmol/L Carbon Dioxide 23 (21-32) mmol/L Anion Gap 6.0 (3-11) BUN 15 (7-18) mg/dl Creatinine 0.51 L (0.6-1.2) mg/dl Est Cr Clr Drug Dosing 86.6 ml/min Est GFR ( Amer) 103.1 Est GFR (Non-Af Amer) 88.9 BUN/Creatinine Ratio 29.4 H (10-20) Glucose 78 (70-99) mg/dl POC Glucose 98 (70-99) mg/dl Calcium 7.9 L (8.5-10.1) mg/dl Total Bilirubin 0.7 D (0.2-1) mg/dl Direct Bilirubin 0.3 H (0-0.2) mg/dl AST 20 (15-37) U/L ALT 16 (12-78) U/L Alkaline Phosphatase 73 (45-117) U/L Total Protein 5.1 L (6.4-8.2) gm/dl Albumin 2.3 L (3.4-5.0) gm/dl Vitamin B12 294 (211-911) pg/ml TSH 2.430 (0.300-4.500) uIu/ml 07/05/20 Range/Units 17:08 WBC (4.8-10.8) K/uL RBC (4.2-5.4) M/uL Hgb (12.0-16.0) g/dL Hct (37-47) % MCV (80-100) fL MCH (25-34) pg MCHC (32-36) g/dL RDW Std Deviation (36.4-46.3) fL RDW Coeff of Suha (11.5-14.5) % Plt Count (130-400) K/uL MPV (7.4-10.4) fL Sodium (136-145) mmol/L Potassium (3.5-5.1) mmol/L Chloride (98-107) mmol/L Carbon Dioxide (21-32) mmol/L Anion Gap (3-11) BUN (7-18) mg/dl Creatinine (0.6-1.2) mg/dl Est Cr Clr Drug Dosing ml/min Est GFR ( Amer) Est GFR (Non-Af Amer) BUN/Creatinine Ratio (10-20) Glucose (70-99) mg/dl POC Glucose 83 (70-99) mg/dl Calcium (8.5-10.1) mg/dl Total Bilirubin (0.2-1) mg/dl Direct Bilirubin (0-0.2) mg/dl AST (15-37) U/L ALT (12-78) U/L Alkaline Phosphatase (45-117) U/L Total Protein (6.4-8.2) gm/dl Albumin (3.4-5.0) gm/dl Vitamin B12 (211-911) pg/ml TSH (0.300-4.500) uIu/ml Diagnostic Findings KUB 1. Persistent mildly dilated loops of air-filled small bowel. Differential considerations would include a nonspecific enteritis or ileus versus low-grade bowel obstruction. 2. Right nephrolithiasis. NM HIDA IMPRESSION: Normal hepatobiliary study. No scintigraphic evidence for acute cholecystitis or common bile duct obstruction. PG Care Time/CCT Total # of Minutes Spent Total Time Spent with Patient: Total time spent is greater than 50% in coordination of care (as documented) at patient's floor/unit and/or counseling patient: Coding Level of Care Code 75382 Subseq Hosp Care Lvl 3 Diagnoses Small bowel obstruction K56.609 Gastroenteritis K52.9 Gallbladder anomaly Q44.1 UTI (urinary tract infection) N39.0 Dementia F03.90 Hypertension I10 Hypothyroidism E03.9 Dyslipidemia E78.5 CAD (coronary artery disease) I25.10 TIA (transient ischemic attack) G45.9 Osteoarthritis M19.90 Diabetes E11.9 Abdominal pain R10.9 DVT prophylaxis Z29.9
[2020-07-06] MEDS ORDERED: SODIUM CHLORIDE 0.9% 1000ML 1,000 ML IV SCH (13:45)
--- NOTE | 2020-07-06 13:46 | Nuclear Medicine Report ---
NM hepatobiliary CLINICAL HISTORY: 84 years-old Female with r/o acute cholecystitis. Acute right upper quadrant abdom inal pain TECHNIQUE: Sequential anterior abdominal images were obtained through 60 minutes following the intra venous administration of 4.8 mCi of technetium-99m Choletec. COMPARISON: CT abdomen and pelvis 07/04/2020 FINDINGS: There is prompt, uniform accumulation of the tracer by the liver. There is normal filling of the int rahepatic ducts, common bile duct and normal excretion of the tracer into the duodenum. The gallblad jenna fills normally. IMPRESSION: Normal hepatobiliary study. No scintigraphic evidence for acute cholecystitis or common bile duct obstruction. ACT 112: Negative or not required by law. The above report was generated using voice recognition software. It may contain grammatical, syntax o r spelling errors. Electronically signed by: Slava Delgado M.D. 07/06/2020 1:44 PM
--- NOTE | 2020-07-06 13:53 | XRay Report ---
KUB HISTORY: Acute generalized abdominal pain hypoactive BS, guarding COMPARISON: KUB 07/05/2020 FINDINGS: Air-filled mildly dilated loops of small bowel within the central and left abdomen redemons trated measuring up to 3.0 cm. Right nephrolithiasis redemonstrated measuring up to 3.2 cm.. No pneu moperitoneum or pneumatosis. Degenerative changes of the spine, pelvis and hips. Mild convex right cu rvature of the mid lumbar spine. No fracture. IMPRESSION: 1. Persistent mildly dilated loops of air-filled small bowel. Differential considerations would inclu de a nonspecific enteritis or ileus versus low-grade bowel obstruction. 2. Right nephrolithiasis. ACT 112: Negative or not required by law. The above report was generated using voice recognition software. It may contain grammatical, syntax o r spelling errors. Electronically signed by: Slava Delgado M.D. 07/06/2020 1:52 PM
[2020-07-06 15:52] LABS: Magnesium 1.9 mg/dl (1.8-2.4); Phosphorus 2.1 mg/dl (2.5-4.9)
[2020-07-06] MEDS ORDERED: POTASSIUM PHOS 3 MMOL/1 ML INFUSION IV STA (15:55)
[2020-07-06] MEDS ORDERED: POTASSIUM PHOSPHATE 21 MMOL in SODIUM CHLORIDE 0.9% 500 ML IV ONE (16:15)
[2020-07-06] MEDS: PIPERACILLIN/TAZOBACTAM 3.375 GM in DEXTROSE 5% 100 ML IV SCH ×2 (16:51→23:24)
[2020-07-06] MEDS ORDERED: RESTASIS SCH (18:30)
[2020-07-06] MEDS: POTASSIUM CHLORIDE 40 MEQ in SODIUM CHLORIDE 0.9% 1000ML 1,000 ML IV SCH (18:33)
[2020-07-06] MEDS: MAGNESIUM SULFATE / D5W 1 GM/100 ML BAG IV SCH ×2 (18:37→20:34)
[2020-07-06] MEDS: cycloSPORINE (RESTASIS) OPB SCH (21:01)
[2020-07-07] MEDS: INSULIN ASPART 100 UNITS/ML 3 ML PEN SC SCH ×4 (00:25→20:09)
[2020-07-07] MEDS: POTASSIUM CHLORIDE 40 MEQ in SODIUM CHLORIDE 0.9% 1000ML 1,000 ML IV SCH ×3 (04:00→13:17)
[2020-07-07] MEDS: HEPARIN SOD 5,000 UNIT/0.5 ML VIAL SQ SCH ×3 (05:37→21:24)
[2020-07-07] MEDS: LEVOTHYROXINE SODIUM 100 MCG TABLET PO SCH (05:37)
[2020-07-07 07:27] LABS: Hematocrit (blood only) 34.8 % (37-47); Hemoglobin 11.9 g/dL (12.0-16.0); Mean Corpuscular Hemoglobin 30.1 pg (25-34); Mean Corpuscular Hgb Conc 34.2 g/dL (32-36); Mean Corpuscular Volume 87.9 fL (80-100); Mean Platelet Volume 9.7 fL (7.4-10.4); Platelet Count 169 K/uL (130-400); RDW Coefficient of Variation 13.1 % (11.5-14.5); RDW Standard Deviation 42.3 fL (36.4-46.3); Red Blood Count 3.96 M/uL (4.2-5.4); White Blood Count 5.45 K/uL (4.8-10.8)
[2020-07-07 07:37] LABS: Partial Thromboplastin Ratio 1.2; Partial Thromboplastin Time 34.1 Seconds (21.0-31.0)
[2020-07-07 07:52] LABS: Albumin Level 2.3 gm/dl (3.4-5.0); BUN Creatinine Ratio 16.7 (10-20); Bilirubin Direct 0.3 mg/dl (0-0.2); Bilirubin,Total 0.6 mg/dl (0.2-1); Creatinine Clr Calc Pharmacy 85.1 ml/min; Est GFR (African American) 102.4; Est GFR (Non-African American) 88.4; Magnesium 2.2 mg/dl (1.8-2.4); Phosphorus 2.6 mg/dl (2.5-4.9); Potassium 4.3 mmol/L (3.5-5.1); Total Protein 5.1 gm/dl (6.4-8.2)
[2020-07-07] MEDS: PIPERACILLIN/TAZOBACTAM 3.375 GM in DEXTROSE 5% 100 ML IV SCH ×2 (08:50→16:30)
[2020-07-07] MEDS: cycloSPORINE (RESTASIS) OPB SCH ×2 (08:56→21:24)
[2020-07-07] MEDS: ISOSORBIDE MONO EXTENDED REL 60 MG TABCR PO SCH (08:56)
[2020-07-07] MEDS: METOPROLOL SUCC 50MG EXT REL TAB PO SCH (08:56)
[2020-07-07] MEDS: CLOPIDOGREL BISULFATE 75 MG TAB PO SCH (08:56)
[2020-07-07] MEDS: CHOLECALCIFEROL 1,000 UNITS 25 MCG TAB PO SCH (08:56)
[2020-07-07] MEDS ORDERED: LEVOTHYROXINE SODIUM 50 MCG in SYRINGE 0 ML IV SCH (09:00)
--- NOTE | 2020-07-07 10:13 | Surgery Consultation ---
Date of Consultation July 07, 2020 Assessment & Plan (1) Small bowel obstruction: pt is a 84 year-old female who was admitted to hospital for diarrhea, CT scan finding - SBO, IMP: SBO, plan,no emergent surgery indication now, conservative treatment, will F/U History of Present Illness Attending Physician: Ene Hernandez MD History of Present Illness Primary Care Provider: SEYMOUR Houser This is an 84 yo F with PMhx of CAD, HTN, HLD, chronic cerebral ischemia, dementia, neuropathy, hypothyroidism, obesity, angina pectoris who presents with onset of diarrhea which has been going on for 3-4 days, nausea and vomiting occurred once today. She lives along but does have family who comes in to check on her every day. Her sister lives down the street and helps her with her morning medications as well as eyedrops, and then 1 of her 7 children comes to visit in the evening. She admits to having increased urination and burning for a few days however she is unclear as to when it started due to her dementia. She has been tolerating oral intake without difficulty prior to today when she was nauseous. Her son is present with her at bedside and reports that she appears much better at this point in time compared to earlier. I ( Eulalio Ham MD ) consult for SBO, I reviewed pt's H/P. labs, CT scan and KUB with pt, pt just passed a little gas, pt denies vomiting, but some nausea, no fever. Allergies Allergy/AdvReac Type Severity Reaction Status Date / Time Penicillins Allergy Unknown RASH Verified 07/04/20 15:05 cephalexin [From Keflex] Allergy Unknown Verified 07/04/20 15:05 cortisone AdvReac Unknown REDNESS Verified 07/04/20 15:05 AND RED NOSE Home Medications Home Medications Medication Instructions Recorded Confirmed Type atorvastatin 40 mg PO HS 04/20/19 07/04/20 History duloxetine 30 mg PO QAM 04/20/19 07/04/20 History isosorbide mononitrate 60 mg PO QAM 04/20/19 07/04/20 History levothyroxine 100 mcg PO QAM 04/20/19 07/04/20 History meclizine 25 mg PO TID PRN 04/20/19 07/04/20 History meloxicam 7.5 mg PO DAILY 04/20/19 07/04/20 History metoprolol succinate 50 mg PO QAM 04/20/19 07/04/20 History montelukast 10 mg PO DAILY 04/20/19 07/04/20 History rqqefybm-izir-MK-calcium-mins 1 tab PO DAILY 04/20/19 07/04/20 History [Women's One Daily] riboflavin (vitamin B2) 400 mg PO DAILY 04/20/19 07/04/20 History clopidogrel 75 mg tablet 75 mg PO DAILY tab 08/15/19 07/04/20 History diclofenac sodium 1 % topical gel 1 % TOPICAL QID PRN gm 08/15/19 07/04/20 History nitroglycerin 0.4 mg sublingual 0.4 mg SL Q5M PRN #25 tab 10/05/19 07/04/20 Rx tablet tramadol 25 mg PO DAILY PRN 11/28/19 07/04/20 History cholecalciferol (vitamin D3) 25 1,000 units PO DAILY tab 06/02/20 07/04/20 History mcg (1,000 unit) tablet vit C 250 mg-E 200 unit-zinc 40 1 tab PO BID 06/02/20 07/04/20 History mg-copper 1 vm-aderyy-bisary capsule donepezil 10 mg PO DAILY 07/04/20 07/04/20 History Past Med/Surg History Medical History CAD (coronary artery disease) Chronic cerebral ischemia Dementia Dyslipidemia Hypertension Hypothyroidism (05/25/13) Lyme disease Neuropathy TIA (transient ischemic attack) Surgical History H/O dilation and curettage Hx of cataract surgery Family History Unknown Lung disease Acute myocardial infarction Dementia Father Coronary heart disease Social History Smoking Status: Never smoker Hx Alcohol Use: No Hx Substance Use: No Preferred Language: Malagasy Communication Ability: Effective Coil Builder Required: No Beliefs That Will Affect Care: None marital status: / Current Living Situation: Alone How many Children do You have: 7 Feels Safe at Home: Yes Safety Concerns: Feels Safe At This Time Review of Systems Review of Systems: Constitutional: No fever, sweats or chills Eyes: No diplopia, no worsening or blurred vision ENT: normal hearing, no trouble swallowing Respiratory: No cough, sputum, dyspnea at rest or on exertion Cardiovascular: No chest pain, tightness or palpitations Abdomen: + Slight abdominal pain, nausea, vomiting, diarrhea as per HPI Musculoskeletal: + Right chronic knee pain and swelling, otherwise no joint pain, calf pain, swelling Neurologic: No weakness, numbness/tingling, or balance problems, + dementia Psychiatric: No anxiety or depression Skin: No rash or itch Allergies Allergy/AdvReac Type Severity Reaction Status Date / Time Penicillins Allergy Unknown RASH Verified 07/04/20 15:05 cephalexin [From Keflex] Allergy Unknown Verified 07/04/20 15:05 cortisone AdvReac Unknown REDNESS Verified 07/04/20 15:05 AND RED NOSE Home Medications Home Medications Medication Instructions Recorded Confirmed Type atorvastatin 40 mg PO HS 04/20/19 07/04/20 History duloxetine 30 mg PO QAM 04/20/19 07/04/20 History isosorbide mononitrate 60 mg PO QAM 04/20/19 07/04/20 History levothyroxine 100 mcg PO QAM 04/20/19 07/04/20 History meclizine 25 mg PO TID PRN 04/20/19 07/04/20 History meloxicam 7.5 mg PO DAILY 04/20/19 07/04/20 History metoprolol succinate 50 mg PO QAM 04/20/19 07/04/20 History montelukast 10 mg PO DAILY 04/20/19 07/04/20 History roslserr-hhdc-YU-calcium-mins 1 tab PO DAILY 04/20/19 07/04/20 History [Women's One Daily] riboflavin (vitamin B2) 400 mg PO DAILY 04/20/19 07/04/20 History clopidogrel 75 mg tablet 75 mg PO DAILY tab 08/15/19 07/04/20 History diclofenac sodium 1 % topical gel 1 % TOPICAL QID PRN gm 08/15/19 07/04/20 History nitroglycerin 0.4 mg sublingual 0.4 mg SL Q5M PRN #25 tab 11/15/19 08/14/20 Rx tablet tramadol 25 mg PO DAILY PRN 11/28/19 07/04/20 History cholecalciferol (vitamin D3) 25 1,000 units PO DAILY tab 06/02/20 07/04/20 History mcg (1,000 unit) tablet vit C 250 mg-E 200 unit-zinc 40 1 tab PO BID 06/02/20 07/04/20 History mg-copper 1 fb-tfyfck-nvdyky capsule donepezil 10 mg PO DAILY 07/04/20 07/04/20 History Patient History Medical History CAD (coronary artery disease) Chronic cerebral ischemia Dementia Dyslipidemia Hypertension Hypothyroidism (05/25/13) Lyme disease Neuropathy TIA (transient ischemic attack) Surgical History H/O dilation and curettage Hx of cataract surgery Family History Unknown Lung disease Acute myocardial infarction Dementia Father Coronary heart disease Social History Smoking Status: Never smoker Hx Alcohol Use: No Hx Substance Use: No Preferred Language: Malagasy Communication Ability: Effective Coil Builder Required: No Beliefs That Will Affect Care: None marital status: / Current Living Situation: Alone How many Children do You have: 7 Feels Safe at Home: Yes Safety Concerns: Feels Safe At This Time Physical Exam Constitutional: WD/WN, vitals as above well developed and well nourished Eyes: PERRL, conjunctivae normal, anicteric sclerae ENMT: external ear and nose normal, oropharynx normal Neck: trachea midline, no thyromegaly Respiratory: normal respiratory effort, lungs clear to auscultation Cardiovascular: RRR, no murmur, no edema Rate/Rhythm: regular rate and regular rhythm Gastrointestinal (Abdomen): soft, NT, ND, BS +, Musculoskeletal: no cyanosis or clubbing, extremities motor strength 5/5 Skin: no rashes, warm and dry Neurologic: patellar DTR's 2+ bilat, sensation intact Psychiatric: Orientation: alert and oriented x 3 Results & Data ([facility]) Vital Signs (Past 12 Hours) Vital Signs Temp Pulse Resp BP Pulse Ox 07/07/20 07:10 36.9 C 54 L 16 142/66 H 96 07/06/20 23:13 36.9 C 55 L 16 149/60 H 97 Laboratory Results Abnormal lab results 07/06/20 07/07/20 07/07/20 Range/Units 07:23 06:50 06:50 RBC 3.96 L (4.2-5.4) M/uL Hgb 11.9 L (12.0-16.0) g/dL Hct 34.8 L (37-47) % APTT 34.1 H (21.0-31.0) Seconds Chloride (98-107) mmol/L Creatinine (0.6-1.2) mg/dl Glucose (70-99) mg/dl Calcium (8.5-10.1) mg/dl Phosphorus 2.1 L (2.5-4.9) mg/dl Direct Bilirubin (0-0.2) mg/dl Total Protein (6.4-8.2) gm/dl Albumin (3.4-5.0) gm/dl 07/07/20 Range/Units 06:50 RBC (4.2-5.4) M/uL Hgb (12.0-16.0) g/dL Hct (37-47) % APTT (21.0-31.0) Seconds Chloride 114 H (98-107) mmol/L Creatinine 0.52 L (0.6-1.2) mg/dl Glucose 67 L (70-99) mg/dl Calcium 8.0 L (8.5-10.1) mg/dl Phosphorus (2.5-4.9) mg/dl Direct Bilirubin 0.3 H (0-0.2) mg/dl Total Protein 5.1 L (6.4-8.2) gm/dl Albumin 2.3 L (3.4-5.0) gm/dl Diagnostic Findings KUB HISTORY: Acute generalized abdominal pain hypoactive BS, guarding COMPARISON: KUB 07/05/2020 FINDINGS: Air-filled mildly dilated loops of small bowel within the central and left abdomen redemonstrated measuring up to 3.0 cm. Right nephrolithiasis redemonstrated measuring up to 3.2 cm.. No pneumoperitoneum or pneumatosis. Degenerative changes of the spine, pelvis and hips. Mild convex right curvature of the mid lumbar spine. No fracture. IMPRESSION: 1. Persistent mildly dilated loops of air-filled small bowel. Differential considerations would include a nonspecific enteritis or ileus versus low-grade bowel obstruction. 2. Right nephrolithiasis. ACT 112: Negative or not required by law. The above report was generated using voice recognition software. It may contain grammatical, syntax or spelling errors. CT abd pelvis IV con only CT DOSE: 675.04 mGy.cm HISTORY: Nausea and nvd, poss divertic or obstruc TECHNIQUE: Multiaxial CT images of the abdomen and pelvis were performed following the use of intravenous contrast. A dose lowering technique was utilized adhering to the principles of ALARA. COMPARISON STUDY: None. FINDINGS: Lung bases are clear. Liver spleen and pancreas appear unremarkable. Several small gallstones within the gallbladder lumen. There are fatty replacement changes of the pancreas. There is a 3 cm right renal cyst. A nonobstructing calcification is present within the right renal upper pole collecting system as well as in the right renal pelvis. There is moderate small bowel wall thickening throughout. The colonic pattern is considered nonobstructive. There is small amount of free fluid within the pelvic cul-de-sac. IMPRESSION: 1. Generalized small bowel enteritis. 2. No evidence for abscess collection or obstruction. 3. Several nonobstructing right renal calcifications 4. Small amount of reactive free fluid within the pelvic cul-de-sac. 5. Several small gallstones. 3. Small amount of free fluid within the pelvic cul-de-sac presumably reactive. NM hepatobiliary CLINICAL HISTORY: 84 years-old Female with r/o acute cholecystitis. Acute right upper quadrant abdominal pain TECHNIQUE: Sequential anterior abdominal images were obtained through 60 minutes following the intravenous administration of 4.8 mCi of technetium-99m Choletec. COMPARISON: CT abdomen and pelvis 07/04/2020 FINDINGS: There is prompt, uniform accumulation of the tracer by the liver. There is normal filling of the intrahepatic ducts, common bile duct and normal excretion of the tracer into the duodenum. The gallbladder fills normally. IMPRESSION: Normal hepatobiliary study. No scintigraphic evidence for acute cholecystitis or common bile duct obstruction. ACT 112: Negative or not required by law. The above report was generated using voice recognition software. It may contain grammatical, syntax or spelling errors.
--- NOTE | 2020-07-07 10:44 | Gastrointestinal Consultation ---
Date of Consultation July 07, 2020 Assessment & Plan (1) Small bowel obstruction: 84 year old female admitted w/ abd pain, diarrhea- GI admitted given abnormal imaging, concern for SBO and gallstones. On exam this AM she denies any symptoms, is clinically feeling well and passing gas NPO for bowel rest Appreciate surgical input No apparent acute indication for CCY but will defer to general surgery Check stool studies to include c.diff Antietemics PRN Analgesia PRN Consider a daily KUB Will sign off. (2) Gallbladder anomaly: Supervising Physician Co-Signing Physician Notes I have seen and examined the patient with SEYMOUR Billings whose note reports our findings and plan. Abd mildly tender. Some flatus. No nausea or vomiting. History of Present Illness Reason for Consultation: gallstones, abd pain Requesting Physician: Mary Attending Physician: Ene Hernandez MD History of Present Illness This is an 84 yo F with PMhx of CAD, HTN, HLD, chronic cerebral ischemia, dementia, neuropathy, hypothyroidism, obesity, angina pectoris who presents with onset of diarrhea which has been going on for 3-4 days, nausea and vomiting occurred once today. Today she notes she is feeling well. No abd pain. No nausea/vomiting. No black or bloody stools. HIDA without abnormality ABD US w/ stones and GB wall thickening CT Generalized small bowel enteritis. No evidence for abscess collection or obstruction.Several nonobstructing right renal calcifications Small amount of reactive free fluid within the pelvic cul-de-sac.Several small gallstones. Allergies Allergy/AdvReac Type Severity Reaction Status Date / Time Penicillins Allergy Unknown RASH Verified 07/04/20 15:05 cephalexin [From Keflex] Allergy Unknown Verified 07/04/20 15:05 cortisone AdvReac Unknown REDNESS Verified 07/04/20 15:05 AND RED NOSE Home Medications Home Medications Medication Instructions Recorded Confirmed Type atorvastatin 40 mg PO HS 04/20/19 07/04/20 History duloxetine 30 mg PO QAM 04/20/19 07/04/20 History isosorbide mononitrate 60 mg PO QAM 04/20/19 07/04/20 History levothyroxine 100 mcg PO QAM 04/20/19 07/04/20 History meclizine 25 mg PO TID PRN 04/20/19 07/04/20 History meloxicam 7.5 mg PO DAILY 04/20/19 07/04/20 History metoprolol succinate 50 mg PO QAM 04/20/19 07/04/20 History montelukast 10 mg PO DAILY 04/20/19 07/04/20 History jzlhlfdq-ewpj-RA-calcium-mins 1 tab PO DAILY 04/20/19 07/04/20 History [Women's One Daily] riboflavin (vitamin B2) 400 mg PO DAILY 04/20/19 07/04/20 History clopidogrel 75 mg tablet 75 mg PO DAILY tab 08/15/19 07/04/20 History diclofenac sodium 1 % topical gel 1 % TOPICAL QID PRN gm 08/15/19 07/04/20 History nitroglycerin 0.4 mg sublingual 0.4 mg SL Q5M PRN #25 tab 10/05/19 07/04/20 Rx tablet tramadol 25 mg PO DAILY PRN 11/28/19 07/04/20 History cholecalciferol (vitamin D3) 25 1,000 units PO DAILY tab 06/02/20 07/04/20 History mcg (1,000 unit) tablet vit C 250 mg-E 200 unit-zinc 40 1 tab PO BID 06/02/20 07/04/20 History mg-copper 1 jy-whksjt-ajwvjr capsule donepezil 10 mg PO DAILY 07/04/20 07/04/20 History Patient History Medical History CAD (coronary artery disease) Chronic cerebral ischemia Dementia Dyslipidemia Hypertension Hypothyroidism (05/25/13) Lyme disease Neuropathy TIA (transient ischemic attack) Surgical History H/O dilation and curettage Hx of cataract surgery Family History Unknown Lung disease Acute myocardial infarction Dementia Father Coronary heart disease Social History Smoking Status: Never smoker Hx Alcohol Use: No Hx Substance Use: No Preferred Language: [place] Communication Ability: Effective Jute Bag Clipper Required: No Beliefs That Will Affect Care: None marital status: / Current Living Situation: Alone How many Children do You have: 7 Feels Safe at Home: Yes Safety Concerns: Feels Safe At This Time Review of Systems Constitutional: no fever, no chills and no fatigue Respiratory: no cough and no dyspnea Cardiovascular: no chest pain and no dyspnea Gastrointestinal: no abdominal pain and no blood in stools Physical Exam Constitutional: + ill appearing (chornically ill); no acute distress Respiratory: normal respiratory effort Cardiovascular: Rate/Rhythm: regular rate and regular rhythm Gastrointestinal (Abdomen): Percussion/Palpation: abdomen soft; abdomen nontender Skin: no rashes, warm and dry Results & Data ([facility]) Vital Signs (Past 12 Hours) Vital Signs Temp Pulse Resp BP Pulse Ox 07/07/20 07:10 36.9 C 54 L 16 142/66 H 96 07/06/20 23:13 36.9 C 55 L 16 149/60 H 97 Laboratory Results 07/07/20 07/07/20 07/07/20 Range/Units 06:50 06:50 06:50 WBC 5.45 (4.8-10.8) K/uL RBC 3.96 L (4.2-5.4) M/uL Hgb 11.9 L (12.0-16.0) g/dL Hct 34.8 L (37-47) % MCV 87.9 (80-100) fL MCH 30.1 (25-34) pg MCHC 34.2 (32-36) g/dL RDW Std Deviation 42.3 (36.4-46.3) fL RDW Coeff of Suha 13.1 (11.5-14.5) % Plt Count 169 (130-400) K/uL MPV 9.7 (7.4-10.4) fL APTT 34.1 H (21.0-31.0) Seconds PTT Ratio 1.2 Sodium 142 (136-145) mmol/L Potassium 4.3 D (3.5-5.1) mmol/L Chloride 114 H (98-107) mmol/L Carbon Dioxide 21 (21-32) mmol/L Anion Gap 7.0 (3-11) BUN 9 D (7-18) mg/dl Creatinine 0.52 L (0.6-1.2) mg/dl Est Cr Clr Drug Dosing 85.1 ml/min Est GFR ( Amer) 102.4 Est GFR (Non-Af Amer) 88.4 BUN/Creatinine Ratio 16.7 (10-20) Glucose 67 L (70-99) mg/dl POC Glucose (70-99) mg/dl Calcium 8.0 L (8.5-10.1) mg/dl Phosphorus 2.6 (2.5-4.9) mg/dl Magnesium 2.2 (1.8-2.4) mg/dl Total Bilirubin 0.6 (0.2-1) mg/dl Direct Bilirubin 0.3 H (0-0.2) mg/dl AST 19 (15-37) U/L ALT 17 (12-78) U/L Alkaline Phosphatase 69 (45-117) U/L Total Protein 5.1 L (6.4-8.2) gm/dl Albumin 2.3 L (3.4-5.0) gm/dl Vitamin B12 (211-911) pg/ml 07/07/20 07/06/20 07/06/20 Range/Units 05:48 23:44 18:16 WBC (4.8-10.8) K/uL RBC (4.2-5.4) M/uL Hgb (12.0-16.0) g/dL Hct (37-47) % MCV (80-100) fL MCH (25-34) pg MCHC (32-36) g/dL RDW Std Deviation (36.4-46.3) fL RDW Coeff of Suha (11.5-14.5) % Plt Count (130-400) K/uL MPV (7.4-10.4) fL APTT (21.0-31.0) Seconds PTT Ratio Sodium (136-145) mmol/L Potassium (3.5-5.1) mmol/L Chloride (98-107) mmol/L Carbon Dioxide (21-32) mmol/L Anion Gap (3-11) BUN (7-18) mg/dl Creatinine (0.6-1.2) mg/dl Est Cr Clr Drug Dosing ml/min Est GFR ( Amer) Est GFR (Non-Af Amer) BUN/Creatinine Ratio (10-20) Glucose (70-99) mg/dl POC Glucose 73 76 72 (70-99) mg/dl Calcium (8.5-10.1) mg/dl Phosphorus (2.5-4.9) mg/dl Magnesium (1.8-2.4) mg/dl Total Bilirubin (0.2-1) mg/dl Direct Bilirubin (0-0.2) mg/dl AST (15-37) U/L ALT (12-78) U/L Alkaline Phosphatase (45-117) U/L Total Protein (6.4-8.2) gm/dl Albumin (3.4-5.0) gm/dl Vitamin B12 (211-911) pg/ml 07/06/20 07/06/20 07/06/20 Range/Units 11:46 07:23 07:23 WBC (4.8-10.8) K/uL RBC (4.2-5.4) M/uL Hgb (12.0-16.0) g/dL Hct (37-47) % MCV (80-100) fL MCH (25-34) pg MCHC (32-36) g/dL RDW Std Deviation (36.4-46.3) fL RDW Coeff of Suha (11.5-14.5) % Plt Count (130-400) K/uL MPV (7.4-10.4) fL APTT (21.0-31.0) Seconds PTT Ratio Sodium (136-145) mmol/L Potassium (3.5-5.1) mmol/L Chloride (98-107) mmol/L Carbon Dioxide (21-32) mmol/L Anion Gap (3-11) BUN (7-18) mg/dl Creatinine (0.6-1.2) mg/dl Est Cr Clr Drug Dosing ml/min Est GFR ( Amer) Est GFR (Non-Af Amer) BUN/Creatinine Ratio (10-20) Glucose (70-99) mg/dl POC Glucose 92 (70-99) mg/dl Calcium (8.5-10.1) mg/dl Phosphorus 2.1 L (2.5-4.9) mg/dl Magnesium 1.9 (1.8-2.4) mg/dl Total Bilirubin (0.2-1) mg/dl Direct Bilirubin (0-0.2) mg/dl AST (15-37) U/L ALT (12-78) U/L Alkaline Phosphatase (45-117) U/L Total Protein (6.4-8.2) gm/dl Albumin (3.4-5.0) gm/dl Vitamin B12 294 (211-911) pg/ml
--- NOTE | 2020-07-07 13:01 | Electrocardiogram Report ---
Test Reason : Blood Pressure : / mmHG Vent. Rate : 054 BPM Atrial Rate : 054 BPM P-R Int : 194 ms QRS Dur : 128 ms QT Int : 514 ms P-R-T Axes : 075 002 054 degrees QTc Int : 487 ms Sinus bradycardia Left bundle branch block Abnormal ECG When compared with ECG of 04-JUL-2020 11:57, Premature supraventricular complexes are no longer Present Nonspecific T wave abnormality no longer evident in Lateral leads Confirmed by Rei Linares ([id number]) on 07/07/2020 1:00:42 PM Referred By: REFERRED SELF Confirmed By:Rei Linares
--- NOTE | 2020-07-07 17:24 | Hospitalist Progress Note ---
Date of Service July 07, 2020 Assessment & Plan (1) Small bowel obstruction: * Admitted with 2-3 days diarrhea, stool studies pending. No recent abx usage and has used imodium OTC in the past. Hx obstruction in the past managed conservatively. No hx abdominal surgeries per her account and no abdominal incision/scarring to suggest previous abd surgeries. By report, never had a colonoscopy in the past * CT abd pelvis with generalized small bowel enteritis, no evidence for abscess or obstruction, several nonobstructing R renal calcifications, reactive fluid within pelvic cul-de-sace. Several small gallstones * KUB 07/07 with persistent mildly dilated loops of air-filled small bowel. * NPO -- will give plavix, metoprolol, but hold other meds * Continue IVF * General Surgery consulted - continue conservative treatment, no surgery for now. (2) Gastroenteritis: Possibly related to acute cholecystitis with elevated bilirubin, diarrhea, new DM on admission * Admitted with 2-3 days diarrhea, no recent abx usage and has used imodium OTC in the past. Hx obstruction in the past. * Continue supportive treatment -- IVF, tylenol/zofran prn. * Stool studies ordered, but patient without BM since admission * CT abd pelvis with generalized small bowel enteritis, no evidence for abscess or obstruction, several nonobstructing R renal calcifications, reactive fluid within pelvic cul-de-sace. Several small gallstones RUQ U/S with stone and sludge filled gallbladder and wall thickening. No pericholecystic fluid and sonographic Tolliver reported negative (although patient verbally stated pain with study during our conversation). Patient with Tbili elevated at 2.1 - now resolved HIDA scan -- normal per report GI consulted -- recommend NPO and supportive care for now. Will order KUB per their rec NPO IVF NSS decreased to 80 ml/hr Gen surg consulted as above (3) Gallbladder anomaly: * CTAP as above * -->RUQ U/S with stone and sludge filled gallbladder and wall thickening. No pericholecystic fluid and sonographic Tolliver reported negative (although patient verbally stated pain with study during our conversation). * Patient with Tbili elevated at 2.1 on admission - now resolved * HIDA scan normal per report * GI consulted -- as above (4) UTI (urinary tract infection): * UA appeared infected --> culture with E.coli. resistant to ampicillin and cefazolin * received 2 days of Ceftriaxone and then transitioned to Zosyn for gallbladder coverage * WBC trending down although see above (5) Dementia: * Chronic, progressing over the past year, hold donepezil while NPO for PSBO/ileus * Lives at home and has family support with seven children who come and spend the night with her daily. Family would like her to return home with support per discussion with CM this weekend (6) Hypertension: * Recently discontinued lisinopril, ranexa and diuretic for hypotension * BP well controlled, currently 135/59 * Continue metoprolol XL 50 mg daily, Imdur 60 mg daily * Continue to monitor (7) Hypothyroidism: * TSH 1.72 in 2018. * TSH 2.430 * Continue levothyroxine 100 mcg daily (8) Dyslipidemia: * Holding atorvastatin 40 mg HS as NPO as above (9) CAD (coronary artery disease): * Hx unsuccessful PCI to LAD. Cardiac Cath 07/31/12 with small to medium caliber LAD (type 1). Prox LAD 90% followed by 60% just prox to takeoff of Diag 1. Remainder of ostial - prox LAD 40%. mid LAD 30%. Very large Cx without significant CAD. Large, dominant RCA with 20 - 30% prox stenosis. Right to left collaterals noted. Anterolateral wall mildly hypokinetic. EF 50-55%. No MR. Normal LVEDP. No . * Attempts of LAD PCI done at [facility] without success after 90 min and 10-12 different guidewires, which were unable to be advanced beyond proximal stenosis. There was an even more severe stenosis approximately 5 mm beyond the 90% stenosis. * Opted for medical management and follows with Dr. Zavala locally * If needed in future, per notes, could attempt again by Dr. Li ([facility] [place] Patient denied pursing surgical intervention. ECHO 2017 with normal LV systolic function, type I diastolic dysfunction with mild L atrial dilation. * On plavix 75mg, metoprolol 50mg, atorvastatin 40mg HS -- will continue plavix/metoprolol given they are vital with severe CAD, statin on hold as NPO * Lisinopril d/c per Sally's note for hypotension * EKG 07/07 without change (10) TIA (transient ischemic attack): * History of such, follows with Dr. 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 (14) DVT prophylaxis: * Teds, Heparin * US Dopplers NEGATIVE for DVT RLE given edema and increased pain reported to RN 07/06 CODE: Full code (15) GERD (gastroesophageal reflux disease): Will give famotidine daily Admission and Anticipated Discharge Date Admission Date: July 06, 2020 Subjective Ms. Meek is overall feeling fairly well today. No abdominal pain, passing gas, no nausea. Has not had bowel movement yet. She does report some very mild chest pressure but reports that it is relieved a bit with burping. She reports she gets this sensation at home as well. Does not worsen with exertion. ROS Constitutional: no chills, aches, sweats or fever Respiratory: no sob,cough, sputum, or wheezing Cardiac: no chest pain, palpitations, edema, orthopnea or lightheadedness GI: no abdominal pain, nausea, vomiting, diarrhea or constipation : no dysuria or hesitancy Extremities: no joint pain or weakness Skin: no rash All other systems reviewed and negative Physical Exam 2 Physical Exam: General: no distress Eyes: normal inspection, PERLL Respiratory: chest non tender, clear to auscultation, normal breath sounds, no respiratory distress, no accessory muscle use Cardiac: regular rate and rhythm, no rub or gallop, no murmur, no edema, no jvd GI/: active bowel sounds, no abd pain or tenderness, soft, non distended Extremities: normal range of motion, normal strength, non tender Neuro/Psych: alert and oriented x 3, normal mood and affect Skin: normal color, dry Results & Data Results & Data ([facility]) Vital Signs (Past 12 Hours) Vital Signs Temp Pulse Resp BP Pulse Ox 07/07/20 15:40 37.2 C 52 L 16 147/54 H 98 07/07/20 07:10 36.9 C 54 L 16 142/66 H 96 PG Care Time/CCT Total # of Minutes Spent Total Time Spent with Patient: Total time spent is greater than 50% in coordination of care (as documented) at patient's floor/unit and/or counseling patient: Coding Level of Care Code 98189 Subseq Hosp Care Lvl 3 Diagnoses Small bowel obstruction K56.609 Gastroenteritis K52.9 Gallbladder anomaly Q44.1 UTI (urinary tract infection) N39.0 Dementia F03.90 Hypertension I10 Hypothyroidism E03.9 Dyslipidemia E78.5 CAD (coronary artery disease) I25.10 TIA (transient ischemic attack) G45.9 Osteoarthritis M19.90 Diabetes E11.9 Abdominal pain R10.9 DVT prophylaxis Z29.9 GERD (gastroesophageal reflux disease) K21.9
--- NOTE | 2020-07-07 18:47 | XRay Report ---
KUB CLINICAL HISTORY: Small bowel obstruction. COMPARISON STUDY: CT of the abdomen and pelvis July 04, 2020. KUB July 06, 2020. FINDINGS: Large right renal calculi are again noted. Multiple loops of mildly dilated small bowel are again noted. Small bowel dilatation is slightly improved since exam of July 06, 2020. IMPRESSION: 1. Multiple loops of mildly dilated small bowel, slightly improved since prior exam. The findings may reflect a partial small bowel obstruction or ileus. 2. Right-sided nephrolithiasis. ACT 112: Negative or not required by law. Electronically signed by: Juan Mccabe M.D. 07/07/2020 6:46 PM
[2020-07-07] MEDS: DEXTROSE 50% 50 ML SYRINGE IV PRN (19:43)
[2020-07-07] MEDS: FAMOTIDINE 20 MG TAB PO SCH (21:23)
[2020-07-08] MEDS: DEXTROSE 50% 50 ML SYRINGE IV PRN (00:03)
[2020-07-08] MEDS: PIPERACILLIN/TAZOBACTAM 3.375 GM in DEXTROSE 5% 100 ML IV SCH ×2 (00:10→08:14)
[2020-07-08] MEDS: INSULIN ASPART 100 UNITS/ML 3 ML PEN SC SCH ×2 (00:16→06:09)
[2020-07-08] MEDS: POTASSIUM CHLORIDE 40 MEQ in SODIUM CHLORIDE 0.9% 1000ML 1,000 ML IV SCH (02:43)
[2020-07-08] MEDS: HEPARIN SOD 5,000 UNIT/0.5 ML VIAL SQ SCH ×3 (05:26→22:14)
[2020-07-08] MEDS: LEVOTHYROXINE SODIUM 100 MCG TABLET PO SCH (05:27)
--- NOTE | 2020-07-08 06:09 | Communication Note ---
Date of Service: July 08, 2020 Patient with persistent mild hypoglycemia while NPO. Fluids changed from NSS/KCl to [id number] ([Na] reduced for osmolarity)
[2020-07-08] MEDS ORDERED: D5W AND 1/2NSS + 20MEQ KCL 20 MEQ/1,000 ML BAG IV SCH (06:15)
[2020-07-08 06:18] LABS: Basophils # (auto) 0.03 K/uL (0-0.2); Basophils % (auto) 0.4 %; Eosinophils # (auto) 0.12 K/uL (0-0.5); Eosinophils % (auto) 1.7 %; Hematocrit (blood only) 36.1 % (37-47); Hemoglobin 12.2 g/dL (12.0-16.0); Immature Granulocytes # (auto) 0.03 K/uL (0.00-0.02); Immature Granulocytes % (auto) 0.4 %; Lymphocytes # (auto) 1.67 K/uL (1.2-3.4); Lymphocytes % (auto) 23.2 %; Mean Corpuscular Hemoglobin 29.8 pg (25-34); Mean Corpuscular Hgb Conc 33.8 g/dL (32-36); Mean Platelet Volume 9.8 fL (7.4-10.4); Monocytes # (auto) 0.72 K/uL (0.11-0.59); Neutrophils # (auto) 4.63 K/uL (1.4-6.5); Neutrophils % (auto) 64.3 %; Platelet Count 168 K/uL (130-400); RDW Coefficient of Variation 13.1 % (11.5-14.5); RDW Standard Deviation 42.4 fL (36.4-46.3)
[2020-07-08 06:28] LABS: Partial Thromboplastin Ratio 1.3; Partial Thromboplastin Time 37.1 Seconds (21.0-31.0)
[2020-07-08 06:51] LABS: BUN Creatinine Ratio 9.2 (10-20); Calcium 8.6 mg/dl (8.5-10.1); Creatinine Clr Calc Pharmacy 80.4 ml/min; Est GFR (African American) 100.5; Est GFR (Non-African American) 86.7; Potassium 4.3 mmol/L (3.5-5.1)
[2020-07-08] MEDS: FAMOTIDINE 20 MG TAB PO SCH (08:14)
[2020-07-08] MEDS: METOPROLOL SUCC 50MG EXT REL TAB PO SCH (08:14)
[2020-07-08] MEDS: CLOPIDOGREL BISULFATE 75 MG TAB PO SCH (08:15)
[2020-07-08] MEDS: ISOSORBIDE MONO EXTENDED REL 60 MG TABCR PO SCH (08:15)
[2020-07-08] MEDS: cycloSPORINE (RESTASIS) OPB SCH ×2 (08:15→22:14)
[2020-07-08] MEDS: CHOLECALCIFEROL 1,000 UNITS 25 MCG TAB PO SCH (08:15)
--- NOTE | 2020-07-08 10:53 | Surgery Progress Note ---
Date of Service July 08, 2020 Assessment & Plan (1) Enteritis: presented to ED with nausea, vomiting, and diarrhea. CT scan showing small bowel wall thickening. No obstruction. -n/v/d resolved - still some abdominal pain but no peritonitis, distention, guarding - + bowel function Plan: No indication for surgical intervention at this time Okay from surgical standpoint to trial clear liquids, advised patient to take slowly Continue medical management Our services signing off, please call with questions/concerns (2) Small bowel obstruction: unlikely, likely more of enteritis based on presenting sympotoms and return of bowel function plan as above Dr. Ham has seen patient, agrees with above. Admission and Anticipated Discharge Date Admission Date: July 06, 2020 Subjective feeling better today no abdominal pain passing gas and had small formed bowel movement last night, no persistent diarrhea no nausea or vomiting no appetite Physical Exam Constitutional: WD/WN, vitals as above no acute distress and not ill appearing Respiratory: normal respiratory effort; no respiratory distress Gastrointestinal (Abdomen): Inspection/Auscultation: abdomen normal to inspection and normal bowel sounds; abdomen not distended Percussion/Palpation: + abdomen tender (lower abdomen and RUQ) and abdomen soft; no guarding and abdomen not rigid Skin: no rashes, warm and dry Psychiatric: Orientation: alert Results & Data ([facility]) Vital Signs (Past 12 Hours) Vital Signs Temp Pulse Resp BP Pulse Ox 07/08/20 08:00 62 07/08/20 07:10 36.8 C 52 L 15 136/69 97 07/07/20 23:02 36.8 C 55 L 16 147/75 H 96 Laboratory Results 07/08/20 07/08/20 07/08/20 Range/Units 06:01 06:00 06:00 WBC 7.20 (4.8-10.8) K/uL RBC 4.10 L (4.2-5.4) M/uL Hgb 12.2 (12.0-16.0) g/dL Hct 36.1 L (37-47) % MCV 88.0 (80-100) fL MCH 29.8 (25-34) pg MCHC 33.8 (32-36) g/dL RDW Std Deviation 42.4 (36.4-46.3) fL RDW Coeff of Suha 13.1 (11.5-14.5) % Plt Count 168 (130-400) K/uL MPV 9.8 (7.4-10.4) fL Immature Gran % (Auto) 0.4 % Neut % (Auto) 64.3 % Lymph % (Auto) 23.2 % Bryan % (Auto) 10.0 % Eos % (Auto) 1.7 % Baso % (Auto) 0.4 % Neut # (Auto) 4.63 (1.4-6.5) K/uL Lymph # (Auto) 1.67 (1.2-3.4) K/uL Bryan # (Auto) 0.72 H (0.11-0.59) K/uL Eos # (Auto) 0.12 (0-0.5) K/uL Baso # (Auto) 0.03 (0-0.2) K/uL Immature Gran # (Auto) 0.03 H (0.00-0.02) K/uL APTT (21.0-31.0) Seconds PTT Ratio Sodium 141 (136-145) mmol/L Potassium 4.3 (3.5-5.1) mmol/L Chloride 111 H (98-107) mmol/L Carbon Dioxide 23 (21-32) mmol/L Anion Gap 7.0 (3-11) BUN 5 L (7-18) mg/dl Creatinine 0.55 L (0.6-1.2) mg/dl Est Cr Clr Drug Dosing 80.4 ml/min Est GFR ( Amer) 100.5 Est GFR (Non-Af Amer) 86.7 BUN/Creatinine Ratio 9.2 L (10-20) Glucose 71 (70-99) mg/dl POC Glucose 72 (70-99) mg/dl Calcium 8.6 (8.5-10.1) mg/dl 07/08/20 07/08/20 07/07/20 Range/Units 06:00 00:22 23:52 WBC (4.8-10.8) K/uL RBC (4.2-5.4) M/uL Hgb (12.0-16.0) g/dL Hct (37-47) % MCV (80-100) fL MCH (25-34) pg MCHC (32-36) g/dL RDW Std Deviation (36.4-46.3) fL RDW Coeff of Suha (11.5-14.5) % Plt Count (130-400) K/uL MPV (7.4-10.4) fL Immature Gran % (Auto) % Neut % (Auto) % Lymph % (Auto) % Bryan % (Auto) % Eos % (Auto) % Baso % (Auto) % Neut # (Auto) (1.4-6.5) K/uL Lymph # (Auto) (1.2-3.4) K/uL Bryan # (Auto) (0.11-0.59) K/uL Eos # (Auto) (0-0.5) K/uL Baso # (Auto) (0-0.2) K/uL Immature Gran # (Auto) (0.00-0.02) K/uL APTT 37.1 H (21.0-31.0) Seconds PTT Ratio 1.3 Sodium (136-145) mmol/L Potassium (3.5-5.1) mmol/L Chloride (98-107) mmol/L Carbon Dioxide (21-32) mmol/L Anion Gap (3-11) BUN (7-18) mg/dl Creatinine (0.6-1.2) mg/dl Est Cr Clr Drug Dosing ml/min Est GFR ( Amer) Est GFR (Non-Af Amer) BUN/Creatinine Ratio (10-20) Glucose (70-99) mg/dl POC Glucose 137 H 61 L* (70-99) mg/dl Calcium (8.5-10.1) mg/dl 07/07/20 07/07/20 07/07/20 Range/Units 20:05 19:23 19:22 WBC (4.8-10.8) K/uL RBC (4.2-5.4) M/uL Hgb (12.0-16.0) g/dL Hct (37-47) % MCV (80-100) fL MCH (25-34) pg MCHC (32-36) g/dL RDW Std Deviation (36.4-46.3) fL RDW Coeff of Suha (11.5-14.5) % Plt Count (130-400) K/uL MPV (7.4-10.4) fL Immature Gran % (Auto) % Neut % (Auto) % Lymph % (Auto) % Bryan % (Auto) % Eos % (Auto) % Baso % (Auto) % Neut # (Auto) (1.4-6.5) K/uL Lymph # (Auto) (1.2-3.4) K/uL Bryan # (Auto) (0.11-0.59) K/uL Eos # (Auto) (0-0.5) K/uL Baso # (Auto) (0-0.2) K/uL Immature Gran # (Auto) (0.00-0.02) K/uL APTT (21.0-31.0) Seconds PTT Ratio Sodium (136-145) mmol/L Potassium (3.5-5.1) mmol/L Chloride (98-107) mmol/L Carbon Dioxide (21-32) mmol/L Anion Gap (3-11) BUN (7-18) mg/dl Creatinine (0.6-1.2) mg/dl Est Cr Clr Drug Dosing ml/min Est GFR ( Amer) Est GFR (Non-Af Amer) BUN/Creatinine Ratio (10-20) Glucose (70-99) mg/dl POC Glucose 112 H 66 L* 62 L* (70-99) mg/dl Calcium (8.5-10.1) mg/dl 07/07/20 Range/Units 12:08 WBC (4.8-10.8) K/uL RBC (4.2-5.4) M/uL Hgb (12.0-16.0) g/dL Hct (37-47) % MCV (80-100) fL MCH (25-34) pg MCHC (32-36) g/dL RDW Std Deviation (36.4-46.3) fL RDW Coeff of Suha (11.5-14.5) % Plt Count (130-400) K/uL MPV (7.4-10.4) fL Immature Gran % (Auto) % Neut % (Auto) % Lymph % (Auto) % Bryan % (Auto) % Eos % (Auto) % Baso % (Auto) % Neut # (Auto) (1.4-6.5) K/uL Lymph # (Auto) (1.2-3.4) K/uL Bryan # (Auto) (0.11-0.59) K/uL Eos # (Auto) (0-0.5) K/uL Baso # (Auto) (0-0.2) K/uL Immature Gran # (Auto) (0.00-0.02) K/uL APTT (21.0-31.0) Seconds PTT Ratio Sodium (136-145) mmol/L Potassium (3.5-5.1) mmol/L Chloride (98-107) mmol/L Carbon Dioxide (21-32) mmol/L Anion Gap (3-11) BUN (7-18) mg/dl Creatinine (0.6-1.2) mg/dl Est Cr Clr Drug Dosing ml/min Est GFR ( Amer) Est GFR (Non-Af Amer) BUN/Creatinine Ratio (10-20) Glucose (70-99) mg/dl POC Glucose 74 (70-99) mg/dl Calcium (8.5-10.1) mg/dl
--- NOTE | 2020-07-08 16:29 | Hospitalist Progress Note ---
Date of Service July 08, 2020 Assessment & Plan (1) Small bowel obstruction: * Admitted with 2-3 days diarrhea, stool studies pending. No recent abx usage and has used imodium OTC in the past. Hx obstruction in the past managed conservatively. No hx abdominal surgeries per her account and no abdominal incision/scarring to suggest previous abd surgeries. By report, never had a colonoscopy in the past * CT abd pelvis with generalized small bowel enteritis, no evidence for abscess or obstruction, several nonobstructing R renal calcifications, reactive fluid within pelvic cul-de-sace. Several small gallstones * DC IVF - will start clears per surgery/GI recommendation * General Surgery consulted - continue conservative treatment, no surgery for now. (2) Gastroenteritis: Possibly related to acute cholecystitis with elevated bilirubin, diarrhea, new DM on admission * Admitted with 2-3 days diarrhea, no recent abx usage and has used imodium OTC in the past. Hx obstruction in the past. * Continue supportive treatment -- IVF, tylenol/zofran prn. * Stool studies ordered, but patient without BM since admission * CT abd pelvis with generalized small bowel enteritis, no evidence for abscess or obstruction, several nonobstructing R renal calcifications, reactive fluid within pelvic cul-de-sac. Several small gallstones RUQ U/S with stone and sludge filled gallbladder and wall thickening. No pericholecystic fluid - HIDA ordered to follow up and was normal - dc'd abx Patient with Tbili elevated at 2.1 on admission - now resolved GI consulted Start clear liquids as above (3) Gallbladder anomaly: * as above (4) UTI (urinary tract infection): * UA appeared infected --> culture with E.coli. resistant to ampicillin and cefazolin * received 2 days of Ceftriaxone and then transitioned to Zosyn for gallbladder coverage - has now had 4 days total IV coverage - discontinued 07/08 * WBC trending down although see above (5) Dementia: * Chronic, progressing over the past year, can resume donepazil * Lives at home and has family support with seven children who come and spend the night with her daily. Patient planning on rehab after discharge (6) Hypertension: * Recently discontinued lisinopril, ranexa and diuretic for hypotension * BP well controlled, currently 135/59 * Continue metoprolol XL 50 mg daily, Imdur 60 mg daily (7) Hypothyroidism: * TSH 1.72 in 2018. * TSH 2.430 * Continue levothyroxine 100 mcg daily (8) Dyslipidemia: * Holding atorvastatin 40 mg HS as NPO as above (9) CAD (coronary artery disease): * Hx unsuccessful PCI to LAD. Cardiac Cath 07/31/12 with small to medium caliber LAD (type 1). Prox LAD 90% followed by 60% just prox to takeoff of Diag 1. Remainder of ostial - prox LAD 40%. mid LAD 30%. Very large Cx without significant CAD. Large, dominant RCA with 20 - 30% prox stenosis. Right to left collaterals noted. Anterolateral wall mildly hypokinetic. EF 50-55%. No MR. Normal LVEDP. No . * Attempts of LAD PCI done at [facility] without success after 90 min and 10-12 different guidewires, which were unable to be advanced beyond proximal stenosis. There was an even more severe stenosis approximately 5 mm beyond the 90% stenosis. * Opted for medical management and follows with Dr. Zavala locally * If needed in future, per notes, could attempt again by Dr. Li ([facility] [place]). Patient denied pursing surgical intervention. ECHO 2018 with normal LV systolic function, type I diastolic dysfunction with mild L atrial dilation. * On plavix 75mg, metoprolol 50mg, atorvastatin 40mg HS -- will continue plavix/metoprolol given they are vital with severe CAD, statin on hold as NPO * Lisinopril d/c per Sally's note for hypotension * EKG 07/07 without change (10) TIA (transient ischemic attack): * History of such, follows with Dr. 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 Meek is feeling better today, no abdominal pain, is passing gas and had a small bowel movement. No further chest discomfort. Her sister is at bedside. ROS Constitutional: no chills, aches, sweats or fever Respiratory: no sob,cough, sputum, or wheezing Cardiac: no chest pain, palpitations, edema, orthopnea or lightheadedness GI: no abdominal pain, nausea, vomiting, diarrhea or constipation : no dysuria or hesitancy Extremities: no joint pain or weakness Skin: no rash All other systems reviewed and negative Physical Exam Physical Exam: General: no distress Eyes: normal inspection, PERLL Respiratory: chest non tender, clear to auscultation, normal breath sounds, no respiratory distress, no accessory muscle use Cardiac: regular rate and rhythm, no rub or gallop, no murmur, no edema, no jvd GI/: active bowel sounds, no abd pain or tenderness, soft, non distended Extremities: normal range of motion, normal strength, non tender Neuro/Psych: alert and oriented x 3, normal mood and affect Skin: normal color, dry Results & Data Results & Data ([facility]) Vital Signs (Past 12 Hours) Vital Signs Temp Pulse Resp BP Pulse Ox 07/08/20 15:16 37.2 C 56 L 16 133/68 97 07/08/20 08:00 62 07/08/20 07:10 36.8 C 52 L 15 136/69 97 PG Care Time/CCT Total # of Minutes Spent Total Time Spent with Patient: Total time spent is greater than 50% in therapy coordinator rdination of care (as documented) at patient's floor/unit and/or counseling patient: Coding Level of Care Code 23882 Subseq Hosp Care Lvl 3 Diagnoses Small bowel obstruction K56.609 Gastroenteritis K52.9 Gallbladder anomaly Q44.1 UTI (urinary tract infection) N39.0 Dementia F03.90 Hypertension I10 Hypothyroidism E03.9 Dyslipidemia E78.5 CAD (coronary artery disease) I25.10 TIA (transient ischemic attack) G45.9 Osteoarthritis M19.90 Diabetes E11.9 GERD (gastroesophageal reflux disease) K21.9 DVT prophylaxis Z29.9
[2020-07-08] MEDS: ATORVASTATIN 40 MG TAB PO SCH (22:14)
[2020-07-09] MEDS: LEVOTHYROXINE SODIUM 100 MCG TABLET PO SCH (06:23)
[2020-07-09] MEDS: HEPARIN SOD 5,000 UNIT/0.5 ML VIAL SQ SCH ×3 (06:23→21:44)
[2020-07-09 06:26] LABS: Basophils # (auto) 0.03 K/uL (0-0.2); Basophils % (auto) 0.4 %; Eosinophils % (auto) 2.8 %; Hematocrit (blood only) 37.8 % (37-47); Hemoglobin 12.7 g/dL (12.0-16.0); Immature Granulocytes # (auto) 0.04 K/uL (0.00-0.02); Immature Granulocytes % (auto) 0.6 %; Lymphocytes # (auto) 2.24 K/uL (1.2-3.4); Lymphocytes % (auto) 31.6 %; Mean Corpuscular Hemoglobin 29.5 pg (25-34); Mean Corpuscular Hgb Conc 33.6 g/dL (32-36); Mean Corpuscular Volume 87.7 fL (80-100); Mean Platelet Volume 9.6 fL (7.4-10.4); Monocytes # (auto) 0.74 K/uL (0.11-0.59); Monocytes % (auto) 10.4 %; Neutrophils # (auto) 3.84 K/uL (1.4-6.5); Neutrophils % (auto) 54.2 %; Platelet Count 175 K/uL (130-400); RDW Coefficient of Variation 13.2 % (11.5-14.5); RDW Standard Deviation 42.7 fL (36.4-46.3); Red Blood Count 4.31 M/uL (4.2-5.4); White Blood Count 7.09 K/uL (4.8-10.8)
[2020-07-09 06:32] LABS: INR 1.1 (0.9-1.1); Partial Thromboplastin Ratio 1.2; Partial Thromboplastin Time 34.5 Seconds (21.0-31.0); Prothrombin Time 11.4 Seconds (9.0-12.0)
[2020-07-09 06:57] LABS: BUN Creatinine Ratio 6.7 (10-20); Calcium 8.8 mg/dl (8.5-10.1); Creatinine Clr Calc Pharmacy 83.7 ml/min; Est GFR (African American) 102.4; Est GFR (Non-African American) 88.4; Potassium 3.7 mmol/L (3.5-5.1)
[2020-07-09] MEDS: CHOLECALCIFEROL 1,000 UNITS 25 MCG TAB PO SCH (08:49)
[2020-07-09] MEDS: DONEPEZIL HCL 10 MG TAB PO SCH (08:49)
[2020-07-09] MEDS: DULOXETINE HCL 30 MG CAP PO SCH (08:49)
[2020-07-09] MEDS: FAMOTIDINE 20 MG TAB PO SCH (08:49)
[2020-07-09] MEDS: CEROVITE ADV FORMULA TAB PO SCH (08:50)
[2020-07-09] MEDS: ISOSORBIDE MONO EXTENDED REL 60 MG TABCR PO SCH (08:50)
[2020-07-09] MEDS: MONTELUKAST SODIUM 10 MG TABLET PO SCH (08:50)
[2020-07-09] MEDS: MELOXICAM 7.5 MG TAB PO SCH (08:50)
[2020-07-09] MEDS: CLOPIDOGREL BISULFATE 75 MG TAB PO SCH (08:50)
[2020-07-09] MEDS: METOPROLOL SUCC 50MG EXT REL TAB PO SCH (08:50)
[2020-07-09] MEDS: cycloSPORINE (RESTASIS) OPB SCH ×2 (08:51→21:41)
--- NOTE | 2020-07-09 11:47 | XRay Report ---
XR sacrum coccyx min 2V CLINICAL HISTORY: recent fall, pain in tailbone COMPARISON: CT scan dated 07/04/2020, CT scan dated 05/05/2017 DISCUSSION: There are advanced degenerative changes present within the lower lumbar spine. There is a n age-indeterminate fracture of the first coccygeal segment, unchanged from the prior July 04, 2020 CT scan, but new when compared the prior April 2017 CT scan.. IMPRESSION: 1. Fracture of the first coccygeal segment 2. Advanced degenerative changes within the lumbar spine ACT 112: Negative or not required by law. Electronically signed by: Juan Caruso M.D. 07/09/2020 11:46 AM
--- NOTE | 2020-07-09 12:40 | Hospitalist Progress Note ---
Date of Service July 09, 2020 Assessment & Plan (1) Small bowel obstruction: * Admitted with 2-3 days diarrhea, stool studies uncollected as she has not had any bowel movement. No recent abx usage and has used imodium OTC in the past. Hx obstruction in the past managed conservatively. No hx abdominal surgeries per her account and no abdominal incision/scarring to suggest previous abd surgeries. By report, never had a colonoscopy in the past * CT abd pelvis with generalized small bowel enteritis, no evidence for abscess or obstruction, several nonobstructing R renal calcifications, reactive fluid within pelvic cul-de-sace. Several small gallstones * General Surgery consulted - continue conservative treatment, no surgery for now. * Continue clears - will advance diet slowly (2) Gastroenteritis: Possibly related to acute cholecystitis with elevated bilirubin, diarrhea, new DM on admission * Admitted with 2-3 days diarrhea, no recent abx usage and has used imodium OTC in the past. Hx obstruction in the past. * Continue supportive treatment -- IVF, tylenol/zofran prn. * Stool studies ordered, but patient without BM since admission * CT abd pelvis with generalized small bowel enteritis, no evidence for abscess or obstruction, several nonobstructing R renal calcifications, reactive fluid within pelvic cul-de-sac. Several small gallstones RUQ U/S with stone and sludge filled gallbladder and wall thickening. No pericholecystic fluid - HIDA ordered to follow up and was normal - dc'd abx Patient with Tbili elevated at 2.1 on admission - now resolved GI consulted Start clear liquids as above (3) Gallbladder anomaly: * as above (4) UTI (urinary tract infection): * UA appeared infected --> culture with E.coli. resistant to ampicillin and cefazolin * received 2 days of Ceftriaxone and then transitioned to Zosyn for gallbladder coverage - has now had 4 days total IV coverage - discontinued 07/08 * WBC trending down (5) Dementia: * Chronic, progressing over the past year * continue donepazil * Lives at home and has family support with seven children who come and spend the night with her daily. Patient planning on rehab after discharge (6) Hypertension: * Recently discontinued lisinopril, ranexa and diuretic for hypotension * BP well controlled, currently 135/59 * Continue metoprolol XL 50 mg daily, Imdur 60 mg daily (7) Hypothyroidism: * TSH 1.72 in 2018. * TSH 2.430 * Continue levothyroxine 100 mcg daily (8) Dyslipidemia: * Holding atorvastatin 40 mg HS as NPO as above (9) CAD (coronary artery disease): * Hx unsuccessful PCI to LAD. Cardiac Cath 07/31/12 with small to medium caliber LAD (type 1). Prox LAD 90% followed by 60% just prox to takeoff of Diag 1. Remainder of ostial - prox LAD 40%. mid LAD 30%. Very large Cx without significant CAD. Large, dominant RCA with 20 - 30% prox stenosis. Right to left collaterals noted. Anterolateral wall mildly hypokinetic. EF 50-55%. No MR. Normal LVEDP. No . * Attempts of LAD PCI done at [facility] without success after 90 min and 10-12 different guidewires, which were unable to be advanced beyond proximal stenosis. There was an even more severe stenosis approximately 5 mm beyond the 90% stenosis. * Opted for medical management and follows with Dr. Zavala locally * If needed in future, per notes, could attempt again by Dr. Li ([facility] [place] [facility] interventionalist). Patient denied pursing surgical intervention. ECHO 2018 with normal LV systolic function, type I diastolic dysfunction with mild L atrial dilation. * On plavix 75mg, metoprolol 50mg, atorvastatin 40mg HS -- will continue plavix/metoprolol given they are vital with severe CAD, statin on hold as NPO * Lisinopril d/c per Sally's note for hypotension * EKG 07/07 without change (10) TIA (transient ischemic attack): * History of such, follows with Dr. Wild, neurology as an outpatient (11) Osteoarthritis: * R knee chronic pain, PT/OT consults, continue tramadol prn, tylenol prn. 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 Meek feels well, only complaint is arthritis pains in her knee. Tolerating clear liquid diet. No nausea or abdominal pain. She reports that she had a bowel movement yesterday which is also documented in yesterday afternoon's notes. Son is at bedside. ROS Constitutional: no chills, aches, sweats or fever Respiratory: no sob,cough, sputum, or wheezing Cardiac: no chest pain, palpitations, edema, orthopnea or lightheadedness GI: no abdominal pain, nausea, vomiting, diarrhea or constipation : no dysuria or hesitancy Extremities: no joint pain or weakness Skin: no rash All other systems reviewed and negative Physical Exam Physical Exam: General: no distress Eyes: normal inspection, PERLL Respiratory: chest non tender, clear to auscultation, normal breath sounds, no respiratory distress, no accessory muscle use Cardiac: regular rate and rhythm, no rub or gallop, no murmur, no edema, no jvd GI/: active bowel sounds, no abd pain or tenderness, soft, non distended Extremities: normal range of motion, normal strength, non tender Neuro/Psych: alert and oriented x 3, normal mood and affect Skin: normal color, dry Results & Data Results & Data ([facility]) Vital Signs (Past 12 Hours) Vital Signs Temp Pulse Resp BP Pulse Ox 07/09/20 07:49 36.3 C L 71 16 131/72 93 07/09/20 07:26 36.8 C 51 L 15 137/80 96 PG Care Time/CCT Total # of Minutes Spent Total Time Spent with Patient: Total time spent is greater than 50% in coordination of care (as documented) at patient's floor/unit and/or counseling patient: Coding Level of Care Code 93965 Subseq Hosp Care Lvl 3 Diagnoses Small bowel obstruction K56.609 Gastroenteritis K52.9 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
[2020-07-09] MEDS: DICLOFENAC SOD 1% GEL 100 GM TUBE EXT SCH ×3 (14:08→21:48)
[2020-07-09] MEDS: TRAMADOL HCL 50 MG TABLET PO PRN (18:06)
[2020-07-09] MEDS: ATORVASTATIN 40 MG TAB PO SCH (21:41)
[2020-07-10] MEDS: LEVOTHYROXINE SODIUM 100 MCG TABLET PO SCH (05:36)
[2020-07-10] MEDS: HEPARIN SOD 5,000 UNIT/0.5 ML VIAL SQ SCH ×3 (05:36→20:48)
[2020-07-10 06:24] LABS: Hematocrit (blood only) 38.3 % (37-47); Hemoglobin 12.9 g/dL (12.0-16.0); Mean Corpuscular Hemoglobin 30.3 pg (25-34); Mean Corpuscular Hgb Conc 33.7 g/dL (32-36); Mean Corpuscular Volume 89.9 fL (80-100); Mean Platelet Volume 9.6 fL (7.4-10.4); Platelet Count 196 K/uL (130-400); RDW Coefficient of Variation 13.4 % (11.5-14.5); RDW Standard Deviation 43.9 fL (36.4-46.3); Red Blood Count 4.26 M/uL (4.2-5.4); White Blood Count 5.31 K/uL (4.8-10.8)
[2020-07-10 06:31] LABS: Partial Thromboplastin Ratio 1.6; Partial Thromboplastin Time 44.5 Seconds (21.0-31.0)
[2020-07-10 07:02] LABS: Albumin Level 2.6 gm/dl (3.4-5.0); BUN Creatinine Ratio 6.5 (10-20); Calcium 9.1 mg/dl (8.5-10.1); Creatinine Clr Calc Pharmacy 73.7 ml/min; Est GFR (African American) 98.2; Est GFR (Non-African American) 84.8; Potassium 3.7 mmol/L (3.5-5.1)
[2020-07-10 07:03] LABS: Albumin Globulin Ratio 0.9 (0.9-2); Bilirubin,Total 0.7 mg/dl (0.2-1); Globulin 2.9 gm/dl (2.5-4.0); Total Protein 5.5 gm/dl (6.4-8.2)
[2020-07-10] MEDS: TRAMADOL HCL 50 MG TABLET PO PRN (08:46)
[2020-07-10] MEDS: cycloSPORINE (RESTASIS) OPB SCH ×2 (08:47→20:47)
[2020-07-10] MEDS: DULOXETINE HCL 30 MG CAP PO SCH (08:48)
[2020-07-10] MEDS: MELOXICAM 7.5 MG TAB PO SCH (08:48)
[2020-07-10] MEDS: DONEPEZIL HCL 10 MG TAB PO SCH (08:48)
[2020-07-10] MEDS: CEROVITE ADV FORMULA TAB PO SCH (08:48)
[2020-07-10] MEDS: METOPROLOL SUCC 50MG EXT REL TAB PO SCH (08:48)
[2020-07-10] MEDS: ISOSORBIDE MONO EXTENDED REL 60 MG TABCR PO SCH (08:49)
[2020-07-10] MEDS: CHOLECALCIFEROL 1,000 UNITS 25 MCG TAB PO SCH (08:49)
[2020-07-10] MEDS: CLOPIDOGREL BISULFATE 75 MG TAB PO SCH (08:49)
[2020-07-10] MEDS: MONTELUKAST SODIUM 10 MG TABLET PO SCH (08:49)
[2020-07-10] MEDS: DICLOFENAC SOD 1% GEL 100 GM TUBE EXT SCH ×4 (08:50→20:48)
[2020-07-10] MEDS: FAMOTIDINE 20 MG TAB PO SCH (08:50)
--- NOTE | 2020-07-10 14:14 | XRay Report ---
KUB HISTORY: Acute nausea and vomiting nausea, vomiting COMPARISON: KUB 07/07/2020. FINDINGS: There is decreased small bowel distention from prior. The bowel gas pattern is obstructed. Mild right-sided renal calculi are redemonstrated measuring up to 3.5 cm. No definite ureteral calcu li. Probable phleboliths of the pelvis. No pneumoperitoneum or pneumatosis. Convex right curvature of the mid lumbar spine. Advanced multilevel degenerative changes of the spine. No fracture. IMPRESSION: 1. Large right-sided renal calculi redemonstrated. No ureteral calculi identified. 2. Nonobstructive bowel gas pattern. ACT 112: Negative or not required by law. The above report was generated using voice recognition software. It may contain grammatical, syntax o r spelling errors. Electronically signed by: Slava Delgado M.D. 07/10/2020 2:13 PM
--- NOTE | 2020-07-10 15:25 | Hospitalist Progress Note ---
Date of Service July 10, 2020 Assessment & Plan (1) Small bowel obstruction: * Low grade obstruction on KUB 07/06 * General Surgery consulted - continue conservative treatment, no surgery for now. * Continue clears - will advance diet slowly * Repeat KUB on 07/10 without obstructive pattern - BM today (2) Gastroenteritis: Possibly related to acute cholecystitis with elevated bilirubin, diarrhea, new DM on admission * Admitted with 2-3 days diarrhea, no recent abx usage and has used imodium OTC in the past. Hx obstruction in the past. * CT abd pelvis with generalized small bowel enteritis, no evidence for abscess or obstruction, several nonobstructing R renal calcifications, reactive fluid within pelvic cul-de-sac. Several small gallstones RUQ U/S with stone and sludge filled gallbladder and wall thickening. No pericholecystic fluid - HIDA ordered to follow up and was normal - dc'd abx Patient with Tbili elevated at 2.1 on admission - now resolved GI consulted Start clear liquids as above. Will hold off on advancing due to nausea/vomiting today (3) Gallbladder anomaly: * as above (4) UTI (urinary tract infection): * UA appeared infected --> culture with E.coli. resistant to ampicillin and cefazolin * received 2 days of Ceftriaxone and then transitioned to Zosyn for gallbladder coverage - has now had 4 days total IV coverage - discontinued 07/08 * WBC trending down (5) Dementia: * Chronic, progressing over the past year * continue donepazil * Lives at home and has family support with seven children who come and spend the night with her daily. Patient planning on rehab after discharge (6) Hypertension: * Recently discontinued lisinopril, ranexa and diuretic for hypotension * BP well controlled, currently 135/59 * Continue metoprolol XL 50 mg daily, Imdur 60 mg daily (7) Hypothyroidism: * TSH 1.72 in 2018. * TSH 2.430 * Continue levothyroxine 100 mcg daily (8) Dyslipidemia: * Resume atorvastatin (9) CAD (coronary artery disease): * Hx unsuccessful PCI to LAD. Cardiac Cath 07/31/12 with small to medium caliber LAD (type 1). Prox LAD 90% followed by 60% just prox to takeoff of Diag 1. Remainder of ostial - prox LAD 40%. mid LAD 30%. Very large Cx without significant CAD. Large, dominant RCA with 20 - 30% prox stenosis. Right to left collaterals noted. Anterolateral wall mildly hypokinetic. EF 50-55%. No MR. Normal LVEDP. No . * Attempts of LAD PCI done at [facility] without success after 90 min and 10-12 different guidewires, which were unable to be advanced beyond proximal stenosi s. There was an even more severe stenosis approximately 5 mm beyond the 90% stenosis. * Opted for medical management and follows with Dr. Zavala locally * If needed in future, per notes, could attempt again by Dr. Li ([facility] interventionalist). Patient denied pursing surgical intervention. ECHO 2018 with normal LV systolic function, type I diastolic dysfunction with mild L atrial dilation. * On plavix 75mg, metoprolol 50mg, atorvastatin 40mg HS -- will continue plavix/metoprolol given they are vital with severe CAD, statin on hold as NPO * Lisinopril d/c per Sally's note for hypotension * EKG 07/07 without change (10) TIA (transient ischemic attack): * History of such, follows with Dr. Wild, neurology as an outpatient (11) Osteoarthritis: * R knee chronic pain, PT/OT consults, continue tramadol prn, tylenol prn. 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 Meek had a headache this morning from right eye to left ear with dizziness. At the time of my assessment this had resolved. She also had a small amount of emesis but no abdominal pain. She did have a bowel movement this morning. On recheck this afternoon, her nausea has resolved. ROS Constitutional: no chills, aches, sweats or fever Respiratory: no sob,cough, sputum, or wheezing Cardiac: no chest pain, palpitations, edema, orthopnea or lightheadedness GI: see HPI : no dysuria or hesitancy Extremities: no joint pain or weakness Skin: no rash All other systems reviewed and negative Physical Exam Physical Exam: General: no distress Eyes: normal inspection, PERLL Respiratory: chest non tender, clear to auscultation, normal breath sounds, no r espiratory distress, no accessory muscle use Cardiac: regular rate and rhythm, no rub or gallop, no murmur, no edema, no jvd GI/: active bowel sounds, no abd pain or tenderness, soft, non distended Extremities: normal range of motion, normal strength, non tender Neuro/Psych: alert and oriented x 3, normal mood and affect, CN II- XII intact Skin: normal color, dry Results & Data Results & Data ([facility]) Vital Signs (Past 12 Hours) Vital Signs Temp Pulse Resp BP Pulse Ox 07/10/20 15:12 37.1 C 56 L 18 107/57 L 97 07/10/20 07:09 36.6 C 70 15 117/67 94 PG Care Time/CCT Total # of Minutes Spent Total Time Spent with Patient: Total time spent is greater than 50% in coordination of care (as documented) at patient's floor/unit and/or counseling patient: Coding Level of Care Code 53529 Subseq Hosp Care Lvl 3 Diagnoses Small bowel obstruction K56.609 Gastroenteritis K52.9 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
[2020-07-10] MEDS: ATORVASTATIN 40 MG TAB PO SCH (20:47)
[2020-07-11] MEDS: LEVOTHYROXINE SODIUM 100 MCG TABLET PO SCH (05:24)
[2020-07-11] MEDS: HEPARIN SOD 5,000 UNIT/0.5 ML VIAL SQ SCH ×3 (05:24→21:19)
[2020-07-11 06:27] LABS: Hematocrit (blood only) 37.1 % (37-47); Hemoglobin 12.5 g/dL (12.0-16.0); Mean Corpuscular Hemoglobin 30.6 pg (25-34); Mean Corpuscular Hgb Conc 33.7 g/dL (32-36); Mean Corpuscular Volume 90.7 fL (80-100); Mean Platelet Volume 9.8 fL (7.4-10.4); Platelet Count 196 K/uL (130-400); RDW Coefficient of Variation 13.6 % (11.5-14.5); RDW Standard Deviation 44.3 fL (36.4-46.3); Red Blood Count 4.09 M/uL (4.2-5.4); White Blood Count 4.91 K/uL (4.8-10.8)
[2020-07-11 06:43] LABS: Partial Thromboplastin Ratio 1.4; Partial Thromboplastin Time 37.8 Seconds (21.0-31.0)
[2020-07-11 07:02] LABS: BUN Creatinine Ratio 17.4 (10-20); Calcium 9.1 mg/dl (8.5-10.1); Creatinine Clr Calc Pharmacy 75.9 ml/min; Est GFR (African American) 99.4; Est GFR (Non-African American) 85.7; Potassium 3.7 mmol/L (3.5-5.1)
[2020-07-11] MEDS: TRAMADOL HCL 50 MG TABLET PO PRN (09:31)
[2020-07-11] MEDS: MONTELUKAST SODIUM 10 MG TABLET PO SCH (09:32)
[2020-07-11] MEDS: ISOSORBIDE MONO EXTENDED REL 60 MG TABCR PO SCH (09:32)
[2020-07-11] MEDS: FAMOTIDINE 20 MG TAB PO SCH (09:32)
[2020-07-11] MEDS: METOPROLOL SUCC 50MG EXT REL TAB PO SCH (09:32)
[2020-07-11] MEDS: MELOXICAM 7.5 MG TAB PO SCH (09:32)
[2020-07-11] MEDS: DONEPEZIL HCL 10 MG TAB PO SCH (09:32)
[2020-07-11] MEDS: cycloSPORINE (RESTASIS) OPB SCH ×2 (09:32→21:14)
[2020-07-11] MEDS: DICLOFENAC SOD 1% GEL 100 GM TUBE EXT SCH ×4 (09:32→21:15)
[2020-07-11] MEDS: CLOPIDOGREL BISULFATE 75 MG TAB PO SCH (09:33)
[2020-07-11] MEDS: CHOLECALCIFEROL 1,000 UNITS 25 MCG TAB PO SCH (09:33)
[2020-07-11] MEDS: DULOXETINE HCL 30 MG CAP PO SCH (09:33)
[2020-07-11] MEDS: CEROVITE ADV FORMULA TAB PO SCH (09:33)
--- NOTE | 2020-07-11 10:32 | Hospitalist Progress Note ---
Date of Service July 11, 2020 Assessment & Plan (1) Small bowel obstruction: * Low grade obstruction on KUB 07/06 * General Surgery consulted - continue conservative treatment, no surgery for now. Continued clears with KUB today now with possible SBO (small loose stool this morning per nursing although patient does not recall this) * Will make NPO * Reconsulted general surgery * Serial abdominal exams * NSS + 20MEQ KCl * Labs in AM (2) Gastroenteritis: Possibly related to acute cholecystitis with elevated bilirubin, diarrhea, new DM on admission * Admitted with 2-3 days diarrhea, no recent abx usage and has used imodium OTC in the past. Hx obstruction in the past. * CT abd pelvis with generalized small bowel enteritis, no evidence for abscess or obstruction, several nonobstructing R renal calcifications, reactive fluid within pelvic cul-de-sac. Several small gallstones RUQ U/S with stone and sludge filled gallbladder and wall thickening. No pericholecystic fluid - HIDA ordered to follow up and was normal - dc'd abx Patient with Tbili elevated at 2.1 on admission - now resolved GI consulted -- signed off Stool cultures without isolates to date -- follow Start clear liquids as above. Will hold off on advancing due to nausea today with meal. No vomiting currently, although patient endorsed nausea (3) Gallbladder anomaly: * as above (4) UTI (urinary tract infection): * UA appeared infected --> culture with E.coli. resistant to ampicillin and cefazolin * received 2 days of Ceftriaxone and then transitioned to Zosyn for gallbladder coverage - has now had 4 days total IV coverage - discontinued 07/08 * WBC 4.9k on labs (5) Dementia: * Chronic, progressing over the past year * continue donepazil * Lives at home and has family support with seven children who come and spend the night with her daily. * Patient planning on rehab after discharge (6) Hypertension: * Recently discontinued lisinopril, ranexa and diuretic for hypotension * BP well controlled, currently 132/70 * Continue metoprolol XL 50 mg daily, Imdur 60 mg daily (7) Hypothyroidism: * TSH 1.72 in 2018. * TSH 2.430 * Continue levothyroxine 100 mcg daily (8) Dyslipidemia: * Resumed atorvastatin (9) CAD (coronary artery disease): * Hx unsuccessful PCI to LAD. Cardiac Cath 07/31/12 with small to medium caliber LAD (type 1). Prox LAD 90% followed by 60% just prox to takeoff of Diag 1. Remainder of ostial - prox LAD 40%. mid LAD 30%. Very large Cx without significant CAD. Large, dominant RCA with 20 - 30% prox stenosis. Right to lef t collaterals noted. Anterolateral wall mildly hypokinetic. EF 50-55%. No MR. Normal LVEDP. No . * Attempts of LAD PCI done at [facility] without success after 90 min and 10-12 different guidewires, which were unable to be advanced beyond proximal stenosis. There was an even more severe stenosis approximately 5 mm beyond the 90% stenosis. * Opted for medical management and follows with Dr. Zavala locally * If needed in future, per notes, could attempt again [place] Dr. Li ([facility] [place] Patient denied pursing surgical intervention. ECHO 2018 with normal LV systolic function, type I diastolic dysfunction with mild L atrial dilation. * On plavix 75mg, metoprolol 50mg, atorvastatin 40mg HS -- will continue plavix/metoprolol given they are vital with severe CAD, statin on hold as NPO * Lisinopril d/c per Sally's note for hypotension * EKG 07/07 without change (10) TIA (transient ischemic attack): * History of such, follows with Dr. Wild, neurology as an outpatient (11) Osteoarthritis: * R knee chronic pain, PT/OT consults, continue tramadol prn, tylenol prn. 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 Pain to bilateral knees, typically relieved with tylenol at home but had not been receiving. Also with low back pain from fracture. Stated nursing are gett ing her a cushion for comfort. Passing gas. Some nausea overnight but nothing since. Small loose stool this morning per nursing. Discussed obtaining KUB and then will advance diet. Review of Systems Review of Systems: All systems reviewed & are unremarkable except as noted in HPI & below Physical Exam Constitutional: WD/WN, vitals as above + obese; no acute distress Eyes: + anicteric sclerae and PERRL ENMT: Ears: + hearing impairment (hard of hearing) Neck: normal visual inspection Respiratory: able to speak in complete sentences; no respiratory distress and no labored breathing Auscultation: lungs clear to auscultation bilaterally and + diminished lung sounds; no crackles and no wheezes Cardiovascular: Rate/Rhythm: regular rate and regular rhythm Vessels: no JVD Extremities: + edema (R>L, chronic per patient) Gastrointestinal (Abdomen): Inspection/Auscultation: abdomen normal to inspection and + hypoactive bowel sounds Percussion/Palpation: + abdomen tender (tender with stethoscope to entire abdomen. RUQ/RLQ > L), + guarding and abdomen soft; abdomen not rigid umbilical hernia, reducible Musculoskeletal: Head/Neck/Chest: normocephalic and head atraumatic Skin: warm, dry Neurologic: patellar DTR's 2+ bilat, sensation intact and PERRL, EOMI, accommodation nl, no face palsy, no dysarthria moves all extremities and awake Psychiatric: Orientation: alert, oriented to person, oriented to place and cooperative; + not oriented to time Lymphatic: no cervical or axillary lymphadenopathy Results & Data Results & Data ([facility]) Vital Signs (Past 12 Hours) Vital Signs Temp Pulse Resp BP Pulse Ox 07/11/20 07:10 37.1 C 73 16 132/70 96 07/10/20 22:55 37.4 C 57 L 16 129/78 98 Laboratory Results 07/11/20 07/11/20 07/11/20 Range/Units 07:59 05:20 05:20 WBC (4.8-10.8) K/uL RBC (4.2-5.4) M/uL Hgb (12.0-16.0) g/dL Hct (37-47) % MCV (80-100) fL MCH (25-34) pg MCHC (32-36) g/dL RDW Std Deviation (36.4-46.3) fL RDW Coeff of Suha (11.5-14.5) % Plt Count (130-400) K/uL MPV (7.4-10.4) fL APTT 37.8 H (21.0-31.0) Seconds PTT Ratio 1.4 Sodium 143 (136-145) mmol/L Potassium 3.7 (3.5-5.1) mmol/L Chloride 109 H (98-107) mmol/L Carbon Dioxide 27 (21-32) mmol/L Anion Gap 7.0 (3-11) BUN 10 D (7-18) mg/dl Creatinine 0.57 L (0.6-1.2) mg/dl Est Cr Clr Drug Dosing 75.9 ml/min Est GFR ( Amer) 99.4 Est GFR (Non-Af Amer) 85.7 BUN/Creatinine Ratio 17.4 (10-20) Glucose 96 (70-99) mg/dl POC Glucose 105 H (70-99) mg/dl Calcium 9.1 (8.5-10.1) mg/dl 07/11/20 07/10/20 07/10/20 Range/Units 05:20 21:02 17:28 WBC 4.91 (4.8-10.8) K/uL RBC 4.09 L (4.2-5.4) M/uL Hgb 12.5 (12.0-16.0) g/dL Hct 37.1 (37-47) % MCV 90.7 (80-100) fL MCH 30.6 (25-34) pg MCHC 33.7 (32-36) g/dL RDW Std Deviation 44.3 (36.4-46.3) fL RDW Coeff of Suha 13.6 (11.5-14.5) % Plt Count 196 (130-400) K/uL MPV 9.8 (7.4-10.4) fL APTT (21.0-31.0) Seconds PTT Ratio Sodium (136-145) mmol/L Potassium (3.5-5.1) mmol/L Chloride (98-107) mmol/L Carbon Dioxide (21-32) mmol/L Anion Gap (3-11) BUN (7-18) mg/dl Creatinine (0.6-1.2) mg/dl Est Cr Clr Drug Dosing ml/min Est GFR ( Amer) Est GFR (Non-Af Amer) BUN/Creatinine Ratio (10-20) Glucose (70-99) mg/dl POC Glucose 94 101 H (70-99) mg/dl Calcium (8.5-10.1) mg/dl 07/10/20 Range/Units 12:09 WBC (4.8-10.8) K/uL RBC (4.2-5.4) M/uL Hgb (12.0-16.0) g/dL Hct (37-47) % MCV (80-100) fL MCH (25-34) pg MCHC (32-36) g/dL RDW Std Deviation (36.4-46.3) fL RDW Coeff of Suha (11.5-14.5) % Plt Count (130-400) K/uL MPV (7.4-10.4) fL APTT (21.0-31.0) Seconds PTT Ratio Sodium (136-145) mmol/L Potassium (3.5-5.1) mmol/L Chloride (98-107) mmol/L Carbon Dioxide (21-32) mmol/L Anion Gap (3-11) BUN (7-18) mg/dl Creatinine (0.6-1.2) mg/dl Est Cr Clr Drug Dosing ml/min Est GFR ( Amer) Est GFR (Non-Af Amer) BUN/Creatinine Ratio (10-20) Glucose (70-99) mg/dl POC Glucose 132 H (70-99) mg/dl Calcium (8.5-10.1) mg/dl Diagnostic Findings KUB IMPRESSION: 1. A few mildly dilated gas-filled loops of small bowel within the left side the abdomen which is similar to the prior studies and may represent a partial small bowel obstruction. 2. Right-sided nephrolithiasis. PG Care Time/CCT Total # of Minutes Spent Total Time Spent with Patient: Total time spent is greater than 50% in coordination of care (as documented) at patient's floor/unit and/or counseling patient: Coding Level of Care Code 65809 Subseq Hosp Care Lvl 3 Diagnoses Small bowel obstruction K56.609 Gastroenteritis K52.9 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
--- NOTE | 2020-07-11 10:41 | XRay Report ---
KUB HISTORY: f/u small bowel obstruction. hypoactive BS COMPARISON: KUB 07/10/2020. FINDINGS: A few mildly dilated gas-filled loops of small bowel to the left side the abdomen measuring up to 3.4 cm in diameter. This is similar to the prior studies and may represent a partial small bow el obstruction. Right-sided nephrolithiasis persists with a dominant 3 cm stone within the right abraham l pelvis. Calcifications within the deep pelvis consistent with phleboliths. Degenerative changes in dextroscoliosis of the lumbar spine. No pneumoperitoneum or pneumatosis. IMPRESSION: 1. A few mildly dilated gas-filled loops of small bowel within the left side the abdomen which is sim ilar to the prior studies and may represent a partial small bowel obstruction. 2. Right-sided nephrolithiasis. ACT 112: Negative or not required by law. Electronically signed by: Torin Qureshi M.D. 07/11/2020 10:40 AM
--- NOTE | 2020-07-11 13:22 | Surgery Progress Note ---
Date of Service July 11, 2020 Assessment & Plan (1) Small bowel obstruction: Patient seen in reconsultation due to KUB findings today. Patient's CT originally showed diffuse small bowel enteritis. Patient is completely asymptomatic. Had liquid stool this am and last night with negative stool cultures KUB done this am for abdominal pain showing possible partial small bowel obstruction with a few mildly dilated gas-filled loops of small bowel within left side of abdomen. Patient poor historian Abdominal examination is completely benign. Plan: no surgical intervention recommended would trial clear liquids and advance slowly as tolerated surgery to follow peripherally if any concerns please call Dr. Hobson covering this weekend. Admission and Anticipated Discharge Date Admission Date: July 06, 2020 Subjective denies of any nausea, vomiting, abdominal pain or bowel movement however patient has dementia and is a poor historian. Spoke to patient's nurse prior to going to evaluate patient. Per nurse there has been no complaints of nausea, vomiting, or abdominal pain today or yesterday. Had liquid stool this am. Mostly complaining of lower leg pain. Physical Exam Constitutional: WD/WN, vitals as above no acute distress and not ill appearing Gastrointestinal (Abdomen): Inspection/Auscultation: abdomen normal to inspection; abdomen not distended and + abnormal bowel sounds (some bowel sounds present) Percussion/Palpation: abdomen soft; abdomen nontender, no guarding and abdomen not rigid Skin: no rashes, warm and dry Psychiatric: Orientation: alert; + not oriented x 3 Results & Data ([facility]) Vital Signs (Past 12 Hours) Vital Signs Temp Pulse Resp BP Pulse Ox 07/11/20 07:10 37.1 C 73 16 132/70 96 Laboratory Results 07/11/20 07/11/20 07/11/20 Range/Units 07:59 05:20 05:20 WBC (4.8-10.8) K/uL RBC (4.2-5.4) M/uL Hgb (12.0-16.0) g/dL Hct (37-47) % MCV (80-100) fL MCH (25-34) pg MCHC (32-36) g/dL RDW Std Deviation (36.4-46.3) fL RDW Coeff of Suha (11.5-14.5) % Plt Count (130-400) K/uL MPV (7.4-10.4) fL APTT 37.8 H (21.0-31.0) Seconds PTT Ratio 1.4 Sodium 143 (136-145) mmol/L Potassium 3.7 (3.5-5.1) mmol/L Chloride 109 H (98-107) mmol/L Carbon Dioxide 27 (21-32) mmol/L Anion Gap 7.0 (3-11) BUN 10 D (7-18) mg/dl Creatinine 0.57 L (0.6-1.2) mg/dl Est Cr Clr Drug Dosing 75.9 ml/min Est GFR ( Amer) 99.4 Est GFR (Non-Af Amer) 85.7 BUN/Creatinine Ratio 17.4 (10-20) Glucose 96 (70-99) mg/dl POC Glucose 105 H (70-99) mg/dl Calcium 9.1 (8.5-10.1) mg/dl 07/11/20 07/10/20 07/10/20 Range/Units 05:20 21:02 17:28 WBC 4.91 (4.8-10.8) K/uL RBC 4.09 L (4.2-5.4) M/uL Hgb 12.5 (12.0-16.0) g/dL Hct 37.1 (37-47) % MCV 90.7 (80-100) fL MCH 30.6 (25-34) pg MCHC 33.7 (32-36) g/dL RDW Std Deviation 44.3 (36.4-46.3) fL RDW Coeff of Suha 13.6 (11.5-14.5) % Plt Count 196 (130-400) K/uL MPV 9.8 (7.4-10.4) fL APTT (21.0-31.0) Seconds PTT Ratio Sodium (136-145) mmol/L Potassium (3.5-5.1) mmol/L Chloride (98-107) mmol/L Carbon Dioxide (21-32) mmol/L Anion Gap (3-11) BUN (7-18) mg/dl Creatinine (0.6-1.2) mg/dl Est Cr Clr Drug Dosing ml/min Est GFR ( Amer) Est GFR (Non-Af Amer) BUN/Creatinine Ratio (10-20) Glucose (70-99) mg/dl POC Glucose 94 101 H (70-99) mg/dl Calcium (8.5-10.1) mg/dl Diagnostic Findings KUB HISTORY: f/u small bowel obstruction. hypoactive BS COMPARISON: KUB 07/10/2020. FINDINGS: A few mildly dilated gas-filled loops of small bowel to the left side the abdomen measuring up to 3.4 cm in diameter. This is similar to the prior studies and may represent a partial small bowel obstruction. Right-sided nephrolithiasis persists with a dominant 3 cm stone within the right renal pelvis. Calcifications within the deep pelvis consistent with phleboliths. Degenerative changes in dextroscoliosis of the lumbar spine. No pneumoperitoneum or pneumatosis. IMPRESSION: 1. A few mildly dilated gas-filled loops of small bowel within the left side the abdomen which is similar to the prior studies and may represent a partial small bowel obstruction. 2. Right-sided nephrolithiasis.
[2020-07-11] MEDS: ACETAMINOPHEN 325 MG TAB PO PRN (13:48)
[2020-07-11] MEDS: NSS + 20MEQ KCL 20 MEQ/1,000 ML BAG IV SCH ×2 (14:11→23:44)
[2020-07-11] MEDS ORDERED: Nursing to Pharmacy Communication SCH (15:15)
[2020-07-11] MEDS: ATORVASTATIN 40 MG TAB PO SCH (21:14)
[2020-07-12] MEDS: LEVOTHYROXINE SODIUM 100 MCG TABLET PO SCH (05:42)
[2020-07-12] MEDS: HEPARIN SOD 5,000 UNIT/0.5 ML VIAL SQ SCH ×3 (05:43→21:31)
[2020-07-12 06:21] LABS: Basophils # (auto) 0.01 K/uL (0-0.2); Basophils % (auto) 0.2 %; Eosinophils # (auto) 0.14 K/uL (0-0.5); Eosinophils % (auto) 2.7 %; Hematocrit (blood only) 38.8 % (37-47); Immature Granulocytes # (auto) 0.02 K/uL (0.00-0.02); Immature Granulocytes % (auto) 0.4 %; Lymphocytes # (auto) 2.52 K/uL (1.2-3.4); Lymphocytes % (auto) 48.8 %; Mean Corpuscular Hgb Conc 33.5 g/dL (32-36); Mean Corpuscular Volume 89.4 fL (80-100); Mean Platelet Volume 9.3 fL (7.4-10.4); Monocytes # (auto) 0.42 K/uL (0.11-0.59); Monocytes % (auto) 8.1 %; Neutrophils # (auto) 2.05 K/uL (1.4-6.5); Neutrophils % (auto) 39.8 %; Platelet Count 188 K/uL (130-400); RDW Coefficient of Variation 13.5 % (11.5-14.5); RDW Standard Deviation 44.1 fL (36.4-46.3); Red Blood Count 4.34 M/uL (4.2-5.4); White Blood Count 5.16 K/uL (4.8-10.8)
[2020-07-12 06:34] LABS: Partial Thromboplastin Ratio 1.4; Partial Thromboplastin Time 39.6 Seconds (21.0-31.0)
[2020-07-12 06:55] LABS: BUN Creatinine Ratio 23.9 (10-20); Calcium 8.7 mg/dl (8.5-10.1); Creatinine Clr Calc Pharmacy 70.8 ml/min; Est GFR (African American) 97.2; Est GFR (Non-African American) 83.8; Magnesium 1.9 mg/dl (1.8-2.4); Phosphorus 3.2 mg/dl (2.5-4.9)
--- NOTE | 2020-07-12 07:48 | Surgery Progress Note ---
Date of Service July 12, 2020 Assessment & Plan (1) Small bowel obstruction: -abdominal exam completely benign this am and pt. asymptomatic -no need for surgical intervention -continue plan per primary service Admission and Anticipated Discharge Date Admission Date: July 06, 2020 Supervising Physician Co-Signing Physician Notes No evidence of bowel obstruction, surgery will sign off Subjective Pt. denies N/V or abdominal pain. Physical Exam Constitutional: well developed and well nourished; no acute distress Neck: trachea midline Respiratory: normal respiratory effort; no respiratory distress and no labored breathing Cardiovascular: Rate/Rhythm: regular rate and regular rhythm Gastrointestinal (Abdomen): Inspection/Auscultation: normal bowel sounds Percussion/Palpation: abdomen soft; abdomen nontender no pain with palpation Results & Data ([facility]) Vital Signs (Past 12 Hours) Vital Signs Temp Pulse Resp BP Pulse Ox 07/12/20 07:23 37.1 C 59 L 16 143/82 H 97 07/11/20 23:00 36.7 C 55 L 16 150/80 H 95 PG Care Time/CCT Total # of Minutes Spent Total Time Spent with Patient: Total time spent is greater than 50% in coordination of care (as documented) at patient's floor/unit and/or counseling patient: Coding Level of Care Code 26505 Subseq Hosp Care Lvl 1 Diagnoses Small bowel obstruction K56.609
[2020-07-12] MEDS: NSS + 20MEQ KCL 20 MEQ/1,000 ML BAG IV SCH ×2 (09:24→19:28)
[2020-07-12] MEDS: DONEPEZIL HCL 10 MG TAB PO SCH (10:26)
[2020-07-12] MEDS: ISOSORBIDE MONO EXTENDED REL 60 MG TABCR PO SCH (10:27)
[2020-07-12] MEDS: DULOXETINE HCL 30 MG CAP PO SCH (10:27)
[2020-07-12] MEDS: MELOXICAM 7.5 MG TAB PO SCH (10:28)
[2020-07-12] MEDS: FAMOTIDINE 20 MG TAB PO SCH (10:29)
[2020-07-12] MEDS: CEROVITE ADV FORMULA TAB PO SCH (10:29)
[2020-07-12] MEDS: CLOPIDOGREL BISULFATE 75 MG TAB PO SCH (10:30)
[2020-07-12] MEDS: MONTELUKAST SODIUM 10 MG TABLET PO SCH (10:31)
[2020-07-12] MEDS: cycloSPORINE (RESTASIS) OPB SCH ×2 (10:31→21:27)
[2020-07-12] MEDS: CHOLECALCIFEROL 1,000 UNITS 25 MCG TAB PO SCH (10:32)
[2020-07-12] MEDS: DICLOFENAC SOD 1% GEL 100 GM TUBE EXT SCH ×4 (10:33→21:26)
--- NOTE | 2020-07-12 13:36 | Hospitalist Progress Note ---
Date of Service July 12, 2020 Assessment & Plan (1) Small bowel obstruction: * Low grade obstruction on KUB 07/06, partial on 07/11 KUB * General Surgery consulted - continue conservative treatment, no surgery for now. * NSS + 20MEQ KCl * Advance diet to full liquids and see if able to to tolerate (2) Gastroenteritis: Possibly related to acute cholecystitis with elevated bilirubin, diarrhea, new DM on admission * Admitted with 2-3 days diarrhea, no recent abx usage and has used imodium OTC in the past. Hx obstruction in the past. * CT abd pelvis with generalized small bowel enteritis, no evidence for abscess or obstruction, several nonobstructing R renal calcifications, reactive fluid within pelvic cul-de-sac. Several small gallstones RUQ U/S with stone and sludge filled gallbladder and wall thickening. No pe richolecystic fluid - HIDA ordered to follow up and was normal - dc'd abx Patient with Tbili elevated at 2.1 on admission - now resolved GI consulted -- signed off Stool cultures without isolates to date Advance to full liquids as above (3) Gallbladder anomaly: * as above (4) UTI (urinary tract infection): * UA appeared infected --> culture with E.coli. resistant to ampicillin and cefazolin * received 2 days of Ceftriaxone and then transitioned to Zosyn for gallbladder coverage - has now had 4 days total IV coverage - discontinued 07/08 * no leukocytosis or fever (5) Dementia: * Chronic, progressing over the past year * continue donepazil * Lives at home and has family support with seven children who come and spend the night with her daily. * Patient planning on rehab after discharge (6) Hypertension: * Recently discontinued lisinopril, ranexa and diuretic for hypotension * BP well controlled, currently 132/70 * Continue metoprolol XL 50 mg daily, Imdur 60 mg daily (7) Hypothyroidism: * TSH 1.72 in 2018. * TSH 2.430 * Continue levothyroxine 100 mcg daily (8) Dyslipidemia: * Resumed atorvastatin (9) CAD (coronary artery disease): * Hx unsuccessful PCI to LAD. Cardiac Cath 07/31/12 with small to medium caliber LAD (type 1). Prox LAD 90% followed by 60% just prox to takeoff of Diag 1. Remainder of ostial - prox LAD 40%. mid LAD 30%. Very large Cx without significant CAD. Large, dominant RCA with 20 - 30% prox stenosis. Right to left collaterals noted. Anterolateral wall mildly hypokinetic. EF 50-55%. No MR. Normal LVEDP. No . * Attempts of LAD PCI done at [facility] without success after 90 min and 10-12 different guidewires, which were unable to be advanced beyond proximal stenosis. There was an even more severe stenosis approximately 5 mm beyond the 90% stenosis. * Opted for medical management and follows with Dr. Zavala locally * If needed in future, per notes, could attempt again by Dr. Li ([facility] [place] interventionalist). Patient denied pursing surgical intervention. ECHO 2018 with normal LV systolic function, type I diastolic dysfunction with mild L atrial dilation. * On plavix 75mg, metoprolol 50mg, atorvastatin 40mg HS -- will continue plavix/metoprolol given they are vital with severe CAD, statin on hold as NPO * Lisinopril d/c per Sally's note for hypotension * EKG 07/07, 07/12 without change (10) TIA (transient ischemic attack): * History of such, follows with Dr. Wild, neurology as an outpatient (11) Osteoarthritis: * R knee chronic pain, PT/OT consults, continue tramadol prn, tylenol prn. 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 ROS Constitutional: no chills, aches, sweats or fever Respiratory: no sob,cough, sputum, or wheezing Cardiac: no chest pain, palpitations, edema, orthopnea or lightheadedness GI: no abdominal pain, vomiting, diarrhea or constipation : no dysuria or hesitancy Extremities: no joint pain or weakness Skin: no rash All other systems reviewed and negative Physical Exam Physical Exam: General: no distress Eyes: normal inspection, PERLL Respiratory: chest non tender, clear to auscultation, normal breath sounds, no respiratory distress, no accessory muscle use Cardiac: regular rate and rhythm, no rub or gallop, no murmur, no edema, no jvd GI/: active bowel sounds, no abd pain or tenderness, soft, non distended Extremities: normal range of motion, normal strength, non tender Neuro/Psych: alert and oriented x 3, normal mood and affect Skin: normal color, dry Results & Data Results & Data ([facility]) Vital Signs (Past 12 Hours) Vital Signs Temp Pulse Pulse Resp BP BP Pulse Ox 07/12/20 10:43 58 L 57 L 120/59 L 07/12/20 09:38 66 109/57 L 07/12/20 07:23 37.1 C 59 L 16 143/82 H 97 PG Care Time/CCT Total # of Minutes Spent Total Time Spent with Patient: Total time spent is greater than 50% in coordination of care (as documented) at patient's floor/unit and/or counseling patient: Coding Level of Care Code 58353 Subseq Hosp Care Lvl 2 Diagnoses Small bowel obstruction K56.609 Gastroenteritis K52.9 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
[2020-07-12] MEDS: METOPROLOL SUCC 50MG EXT REL TAB PO SCH (15:06)
[2020-07-12] MEDS: TRAMADOL HCL 50 MG TABLET PO PRN (16:56)
[2020-07-12] MEDS: ATORVASTATIN 40 MG TAB PO SCH (21:26)
[2020-07-13] MEDS: NSS + 20MEQ KCL 20 MEQ/1,000 ML BAG IV SCH ×2 (03:46→13:43)
[2020-07-13] MEDS: LEVOTHYROXINE SODIUM 100 MCG TABLET PO SCH (05:27)
[2020-07-13] MEDS: HEPARIN SOD 5,000 UNIT/0.5 ML VIAL SQ SCH ×3 (05:27→21:14)
[2020-07-13 06:19] LABS: Hematocrit (blood only) 37.5 % (37-47); Hemoglobin 12.6 g/dL (12.0-16.0); Mean Corpuscular Hemoglobin 30.1 pg (25-34); Mean Corpuscular Hgb Conc 33.6 g/dL (32-36); Mean Corpuscular Volume 89.5 fL (80-100); Mean Platelet Volume 9.9 fL (7.4-10.4); Platelet Count 184 K/uL (130-400); RDW Coefficient of Variation 13.7 % (11.5-14.5); RDW Standard Deviation 44.2 fL (36.4-46.3); Red Blood Count 4.19 M/uL (4.2-5.4); White Blood Count 5.67 K/uL (4.8-10.8)
[2020-07-13 06:37] LABS: Partial Thromboplastin Ratio 1.5; Partial Thromboplastin Time 42.5 Seconds (21.0-31.0)
[2020-07-13 07:21] LABS: Albumin Level 2.8 gm/dl (3.4-5.0); BUN Creatinine Ratio 14.2 (10-20); Bilirubin,Total 0.8 mg/dl (0.2-1); Calcium 8.6 mg/dl (8.5-10.1); Creatinine Clr Calc Pharmacy 85.5 ml/min; Est GFR (African American) 103.1; Est GFR (Non-African American) 88.9; Globulin 2.8 gm/dl (2.5-4.0); Potassium 3.9 mmol/L (3.5-5.1); Total Protein 5.6 gm/dl (6.4-8.2)
[2020-07-13] MEDS: MELOXICAM 7.5 MG TAB PO SCH (09:00)
[2020-07-13] MEDS: ISOSORBIDE MONO EXTENDED REL 60 MG TABCR PO SCH (09:00)
[2020-07-13] MEDS: CLOPIDOGREL BISULFATE 75 MG TAB PO SCH (09:00)
[2020-07-13] MEDS: DULOXETINE HCL 30 MG CAP PO SCH (09:00)
[2020-07-13] MEDS: CEROVITE ADV FORMULA TAB PO SCH (09:00)
[2020-07-13] MEDS: DONEPEZIL HCL 10 MG TAB PO SCH (09:00)
[2020-07-13] MEDS: METOPROLOL SUCC 50MG EXT REL TAB PO SCH (09:00)
[2020-07-13] MEDS: CHOLECALCIFEROL 1,000 UNITS 25 MCG TAB PO SCH (09:00)
[2020-07-13] MEDS: FAMOTIDINE 20 MG TAB PO SCH (09:00)
[2020-07-13] MEDS: MONTELUKAST SODIUM 10 MG TABLET PO SCH (09:00)
[2020-07-13] MEDS: DICLOFENAC SOD 1% GEL 100 GM TUBE EXT SCH ×4 (09:01→21:08)
[2020-07-13] MEDS: cycloSPORINE (RESTASIS) OPB SCH ×2 (09:01→21:08)
--- NOTE | 2020-07-13 13:17 | Hospitalist Progress Note ---
Date of Service July 13, 2020 Assessment & Plan (1) Small bowel obstruction: * Low grade obstruction on KUB 07/06, partial on 07/11 KUB * General Surgery consulted - continue conservative treatment, no surgery for now. * NSS + 20MEQ KCl * Continue full liquid diet for now (2) Gastroenteritis: Possibly related to acute cholecystitis with elevated bilirubin, diarrhea, new DM on admission * CT abd pelvis with generalized small bowel enteritis, no evidence for abscess or obstruction, several nonobstructing R renal calcifications, reactive fluid within pelvic cul-de-sac. Several small gallstones RUQ U/S with stone and sludge filled gallbladder and wall thickening. No pericholecystic fluid - HIDA ordered to follow up and was normal - dc'd abx Patient with Tbili elevated at 2.1 on admission - now resolved GI consulted -- signed off Stool cultures without isolates to date Continue full liquids as above (3) Gallbladder anomaly: * as above (4) UTI (urinary tract infection): * UA appeared infected --> culture with E.coli. resistant to ampicillin and cefazolin * received 2 days of Ceftriaxone and then transitioned to Zosyn for gallbladder coverage - has now had 4 days total IV coverage - discontinued 07/08 * no leukocytosis or fever (5) Dementia: * Chronic, progressing over the past year * continue donepazil * Lives at home and has family support with seven children who come and spend the night with her daily. * Patient planning on rehab after discharge (6) Hypertension: * Recently discontinued lisinopril, ranexa and diuretic for hypotension * BPs controlled * Continue metoprolol XL 50 mg daily, Imdur 60 mg daily (7) Hypothyroidism: * TSH 1.72 in 2018. * TSH 2.430 * Continue levothyroxine 100 mcg daily (8) Dyslipidemia: * Resumed atorvastatin (9) CAD (coronary artery disease): * Hx unsuccessful PCI to LAD. Cardiac Cath 07/31/12 with small to medium caliber LAD (type 1). Prox LAD 90% followed by 60% just prox to takeoff of Diag 1. Remainder of ostial - prox LAD 40%. mid LAD 30%. Very large Cx without significant CAD. Large, dominant RCA with 20 - 30% prox stenosis. Right to left collaterals noted. Anterolateral wall mildly hypokinetic. EF 50-55%. No MR. Normal LVEDP. No . * Attempts of LAD PCI done at [facility] without success after 90 min and 10-12 different guidewires, which were unable to be advanced beyond proximal stenosis. There was an even more severe stenosis approximately 5 mm beyond the 90% stenosis. * Opted for medical management and follows with Dr. Zavala locally * If needed in future, per notes, could attempt again by Dr. Li ([facility] [place] interventionalist). Patient denied pursing surgical intervention. ECHO 2018 with normal LV systolic function, type I diastolic dysfunction with mild L atrial dilation. * On plavix 75mg, metoprolol 50mg, atorvastatin 40mg HS -- will continue plavix/metoprolol given they are vital with severe CAD, statin on hold as NPO * Lisinopril d/c per Sally's note for hypotension * EKG 07/07, 07/12 without change (10) TIA (transient ischemic attack): * History of such, follows with Dr. Wild, neurology as an outpatient (11) Osteoarthritis: * R knee chronic pain, PT/OT consults, continue tramadol prn, tylenol prn. 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 Covid swab ordered Admission and Anticipated Discharge Date Admission Date: July 06, 2020 Subjective Tolerating diet though without much appetite. Continues to have pain from coccyx fracture ROS Constitutional: no chills, aches, sweats or fever Respiratory: no sob,cough, sputum, or wheezing Cardiac: no chest pain, palpitations, edema, orthopnea or lightheadedness GI: no abdominal pain, vomiting, diarrhea or constipation : no dysuria or hesitancy Extremities: no joint pain or weakness Skin: no rash All other systems reviewed and negative Physical Exam Physical Exam: General: no distress Eyes: normal inspection, PERLL Respiratory: chest non tender, clear to auscultation, normal breath sounds, no respiratory distress, no accessory muscle use Cardiac: regular rate and rhythm, no rub or gallop, no murmur, no edema, no jvd GI/: active bowel sounds, no abd pain or tenderness, soft, non distended Extremities: normal range of motion, normal strength, non tender Neuro/Psych: alert and oriented x 3, normal mood and affect Skin: normal color, dry Results & Data Results & Data ([facility]) Vital Signs (Past 12 Hours) Vital Signs Temp Pulse Resp BP Pulse Ox 07/13/20 06:29 36.9 C 58 L 16 141/67 H 98 PG Care Time/CCT Total # of Minutes Spent Total Time Spent with Patient: Total time spent is greater than 50% in coordination of care (as documented) at patient's floor/unit and/or counseling patient: Coding Level of Care Code 41250 Subseq Hosp Care Lvl 2 Diagnoses Small bowel obstruction K56.609 Gastroenteritis K52.9 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
[2020-07-13] MEDS: ATORVASTATIN 40 MG TAB PO SCH (21:08)
[2020-07-14] MEDS: LEVOTHYROXINE SODIUM 100 MCG TABLET PO SCH (05:48)
[2020-07-14] MEDS: HEPARIN SOD 5,000 UNIT/0.5 ML VIAL SQ SCH ×3 (05:48→20:18)
[2020-07-14 06:29] LABS: Hematocrit (blood only) 38.7 % (37-47); Hemoglobin 12.4 g/dL (12.0-16.0); Mean Corpuscular Hemoglobin 29.5 pg (25-34); Mean Corpuscular Volume 91.9 fL (80-100); Mean Platelet Volume 10.2 fL (7.4-10.4); Platelet Count 187 K/uL (130-400); RDW Standard Deviation 46.5 fL (36.4-46.3); Red Blood Count 4.21 M/uL (4.2-5.4); White Blood Count 5.44 K/uL (4.8-10.8)
[2020-07-14 06:37] LABS: Partial Thromboplastin Ratio 1.4; Partial Thromboplastin Time 39.3 Seconds (21.0-31.0)
[2020-07-14 06:57] LABS: BUN Creatinine Ratio 13.3 (10-20); Calcium 9.1 mg/dl (8.5-10.1); Creatinine Clr Calc Pharmacy 77.3 ml/min; Est GFR (African American) 99.9; Est GFR (Non-African American) 86.2; Potassium 3.8 mmol/L (3.5-5.1)
[2020-07-14] MEDS: DICLOFENAC SOD 1% GEL 100 GM TUBE EXT SCH ×4 (08:41→20:18)
[2020-07-14] MEDS: cycloSPORINE (RESTASIS) OPB SCH ×2 (08:45→20:17)
[2020-07-14] MEDS: DONEPEZIL HCL 10 MG TAB PO SCH (08:46)
[2020-07-14] MEDS: CLOPIDOGREL BISULFATE 75 MG TAB PO SCH (08:46)
[2020-07-14] MEDS: DULOXETINE HCL 30 MG CAP PO SCH (08:47)
[2020-07-14] MEDS: CHOLECALCIFEROL 1,000 UNITS 25 MCG TAB PO SCH (08:47)
[2020-07-14] MEDS: MELOXICAM 7.5 MG TAB PO SCH (08:47)
[2020-07-14] MEDS: ISOSORBIDE MONO EXTENDED REL 60 MG TABCR PO SCH (08:47)
[2020-07-14] MEDS: METOPROLOL SUCC 50MG EXT REL TAB PO SCH (08:47)
[2020-07-14] MEDS: FAMOTIDINE 20 MG TAB PO SCH (08:47)
[2020-07-14] MEDS: MONTELUKAST SODIUM 10 MG TABLET PO SCH (08:47)
[2020-07-14] MEDS: CEROVITE ADV FORMULA TAB PO SCH (08:47)
--- NOTE | 2020-07-14 09:13 | Electrocardiogram Report ---
Test Reason : Blood Pressure : / mmHG Vent. Rate : 062 BPM Atrial Rate : 062 BPM P-R Int : 180 ms QRS Dur : 128 ms QT Int : 462 ms P-R-T Axes : 000 029 101 degrees QTc Int : 468 ms Normal sinus rhythm Left bundle branch block Abnormal ECG When compared with ECG of 07-JUL-2020 12:35, No significant change Confirmed by Grayson Pendleton ([id number]) on 07/14/2020 9:13:05 AM Referred By: REFERRED SELF Confirmed By:Grayson Pendlteon
--- NOTE | 2020-07-14 11:03 | Hospitalist Progress Note ---
Date of Service July 14, 2020 Assessment & Plan (1) Small bowel obstruction: * RESOLVED -- patient eating/drinking and continuing to pass gas. Successful BM this morning as well * Low grade obstruction on KUB 07/06, partial on 07/11 KUB * General Surgery consulted - continue conservative treatment, signed off * IVF discontinued, labs remain stable * Advanced to AHA/diabetic diet today --> if able to tolerate possible discharge this afternoon. CM assisting -- pt to be accepted to [facility] for acute rehab with plans to return home with family support after (2) Gastroenteritis: * Initially thought related to acute cholecystitis with elevated bili oliver, diarrhea, new DM on admission * CT abd pelvis with generalized small bowel enteritis, no evidence for abscess or obstruction, several nonobstructing R renal calcifications, reactive fluid within pelvic cul-de-sac. Several small gallstones * UQ U/S with stone and sludge filled gallbladder and wall thickening. No pericholecystic fluid * HIDA ordered to follow up and was normal - dc'd abx * GI consulted -- no need for surgery at this time * Stool cultures without isolates * Diet advanced with hopeful discharge this afternoon vs tomorrow (3) Gallbladder anomaly: * as above . Tbili and LFTs wnl on most recent labs (4) UTI (urinary tract infection): * UA appeared infected --> culture with E.coli. resistant to ampicillin and cefazolin * received 2 days of Ceftriaxone and then transitioned to Zosyn for gallbladder coverage - had 4 days total IV coverage - discontinued 07/08 * no leukocytosis or fever (5) Dementia: * Chronic, progressing over the past year * continue donepazil * Lives at home and has family support with seven children who come and spend the night with her daily. * Patient planning on rehab after discharge (6) Hypertension: * Recently discontinued lisinopril, ranexa and diuretic for hypotension * BPs controlled 148/77 * Continue metoprolol XL 50 mg daily, Imdur 60 mg daily (7) Hypothyroidism: * TSH 1.72 in 2018. * TSH 2.430 * Continue levothyroxine 100 mcg daily (8) Dyslipidemia: * Resumed atorvastatin (9) CAD (coronary artery disease): * Hx unsuccessful PCI to LAD. Cardiac Cath 07/31/12 with small to medium caliber LAD (type 1). Prox LAD 90% followed by 60% just prox to takeoff of Diag 1. Remainder of ostial - prox LAD 40%. mid LAD 30%. Very large Cx without significant CAD. Large, dominant RCA with 20 - 30% prox stenosis. Right to left collaterals noted. Anterolateral wall mildly hypokinetic. EF 50-55%. No MR. Normal LVEDP. No . * Attempts of LAD PCI done at [facility] without success after 90 min and 10-12 different guidewires, which were unable to be advanced beyond proximal stenosis. There was an even more severe stenosis approximately 5 mm beyond the 90% stenosis. * Opted for medical management and follows with Dr. Zavala locally * If needed in future, per notes, could attempt again by Dr. iL ([facility] interventionalist). Patient denied pursing surgical intervention. ECHO 2018 with normal LV systolic function, type I diastolic dysfunction with mild L atrial dilation. * On plavix 75mg, metoprolol 50mg, atorvastatin 40mg HS -- will continue plavix/metoprolol given they are vital with severe CAD, statin on hold as NPO * Lisinopril d/c per Sally's note for hypotension * EKG 07/07, 07/12 without change (10) TIA (transient ischemic attack): * History of such, follows with Dr. Wild, neurology as an outpatient (11) Osteoarthritis: * R knee chronic pain, PT/OT consults, continue tramadol prn, tylenol prn. 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 Patient tolerated DAHA diet without issues. Spoke with Son, Richie, at bedside. [facility] had issue over the weekend and not able to accept until possibly Tuesday. They do have beds at [facility] and [place] although Richie stated family would like to wait until Tuesday and if no bed will consider alternative option. Admission and Anticipated Discharge Date Admission Date: July 06, 2020 Supervising Physician Co-Signing Physician Notes Pt d/w Ms. Curry, PAC Agree with plan as outlined above UTI Acute GE A1c elevated, no hx of prior DM medications Holding on metformin for now due to acute GE and risk of decreased PO intake, absorption, CHAD SBO, no plans for OR at this time Awaiting placement with [facility] neg (testing done for screening purposes only) Subjective Patient evaluated this morning. States she feels better than she has since she got to the hospital. Has tolerated diet without any further nausea/vomiting. Now having formed stool, no blood or discoloration. Denies urinary frequency/urgency since UTI has completed treatment. Denies fevers,chills, chest pain, shortness of breath, abdominal pain, n/v at this time. Review of Systems Review of Systems: All systems reviewed & are unremarkable except as noted in HPI & below Physical Exam Constitutional: WD/WN, vitals as above + obese; no acute distress Eyes: + anicteric sclerae and PERRL ENMT: Ears: + hearing impairment (hard of hearing) Neck: normal visual inspection Respiratory: able to speak in complete sentences; no respiratory distress and no labored breathing Auscultation: lungs clear to auscultation bilaterally and + diminished lung sounds; no crackles and no wheezes Cardiovascular: RRR, no murmur, no edema Rate/Rhythm: regular rate and regular rhythm Vessels: no JVD Extremities: + edema (R>L, chronic per patient) Gastrointestinal (Abdomen): Inspection/Auscultation: abdomen normal to i nspection and normal bowel sounds Percussion/Palpation: abdomen soft; abdomen not rigid Musculoskeletal: Head/Neck/Chest: normocephalic and head atraumatic Neurologic: PERRL, EOMI, accommodation nl, no face palsy, no dysarthria moves all extremities and awake Psychiatric: Orientation: alert, oriented to person, oriented to place and cooperative Lymphatic: no cervical or axillary lymphadenopathy Results & Data Results & Data ([facility]) Vital Signs (Past 12 Hours) Vital Signs Temp Pulse Resp BP Pulse Ox 07/14/20 08:48 61 07/14/20 07:16 36.8 C 50 L 16 148/77 H 97 07/13/20 23:28 36.5 C 55 L 16 147/83 H 96 Laboratory Results 07/14/20 07/14/20 07/14/20 Range/Units 12:06 07:54 05:40 WBC (4.8-10.8) K/uL RBC (4.2-5.4) M/uL Hgb (12.0-16.0) g/dL Hct (37-47) % MCV (80-100) fL MCH (25-34) pg MCHC (32-36) g/dL RDW Std Deviation (36.4-46.3) fL RDW Coeff of Suha (11.5-14.5) % Plt Count (130-400) K/uL MPV (7.4-10.4) fL APTT (21.0-31.0) Seconds PTT Ratio Sodium 143 (136-145) mmol/L Potassium 3.8 (3.5-5.1) mmol/L Chloride 110 H (98-107) mmol/L Carbon Dioxide 28 (21-32) mmol/L Anion Gap 5.0 (3-11) BUN 7 (7-18) mg/dl Creatinine 0.56 L (0.6-1.2) mg/dl Est Cr Clr Drug Dosing 77.3 ml/min Est GFR ( Amer) 99.9 Est GFR (Non-Af Amer) 86.2 BUN/Creatinine Ratio 13.3 (10-20) Glucose 91 (70-99) mg/dl POC Glucose 108 H 111 H (70-99) mg/dl Calcium 9.1 (8.5-10.1) mg/dl COVID-19 Eval Order SARS-CoV-2, RNA, NAAT (NEGATIVE) 07/14/20 07/14/20 07/13/20 Range/Units 05:40 05:40 20:49 WBC 5.44 (4.8-10.8) K/uL RBC 4.21 (4.2-5.4) M/uL Hgb 12.4 (12.0-16.0) g/dL Hct 38.7 (37-47) % MCV 91.9 (80-100) fL MCH 29.5 (25-34) pg MCHC 32.0 (32-36) g/dL RDW Std Deviation 46.5 H (36.4-46.3) fL RDW Coeff of Suha 14.0 (11.5-14.5) % Plt Count 187 (130-400) K/uL MPV 10.2 (7.4-10.4) fL APTT 39.3 H (21.0-31.0) Seconds PTT Ratio 1.4 Sodium (136-145) mmol/L Potassium (3.5-5.1) mmol/L Chloride (98-107) mmol/L Carbon Dioxide (21-32) mmol/L Anion Gap (3-11) BUN (7-18) mg/dl Creatinine (0.6-1.2) mg/dl Est Cr Clr Drug Dosing ml/min Est GFR ( Amer) Est GFR (Non-Af Amer) BUN/Creatinine Ratio (10-20) Glucose (70-99) mg/dl POC Glucose 106 H (70-99) mg/dl Calcium (8.5-10.1) mg/dl COVID-19 Eval Order SARS-CoV-2, RNA, NAAT (NEGATIVE) 07/13/20 07/13/20 07/13/20 Range/Units 17:28 13:26 13:26 WBC (4.8-10.8) K/uL RBC (4.2-5.4) M/uL Hgb (12.0-16.0) g/dL Hct (37-47) % MCV (80-100) fL MCH (25-34) pg MCHC (32-36) g/dL RDW Std Deviation (36.4-46.3) fL RDW Coeff of Suha (11.5-14.5) % Plt Count (130-400) K/uL MPV (7.4-10.4) fL APTT (21.0-31.0) Seconds PTT Ratio Sodium (136-145) mmol/L Potassium (3.5-5.1) mmol/L Chloride (98-107) mmol/L Carbon Dioxide (21-32) mmol/L Anion Gap (3-11) BUN (7-18) mg/dl Creatinine (0.6-1.2) mg/dl Est Cr Clr Drug Dosing ml/min Est GFR ( Amer) Est GFR (Non-Af Amer) BUN/Creatinine Ratio (10-20) Glucose (70-99) mg/dl POC Glucose 87 (70-99) mg/dl Calcium (8.5-10.1) mg/dl COVID-19 Eval [facility] SARS-CoV-2, RNA, NAAT NEGATIVE (NEGATIVE) PG Care Time/CCT Total # of Minutes Spent Total Time Spent with Patient: Total time spent is greater than 50% in coordination of care (as documented) at patient's floor/unit and/or counseling patient: Coding Level of Care Code 87897 Subseq Hosp Care Lvl 2 Diagnoses Small bowel obstruction K56.609 Gastroenteritis K52.9 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
--- NOTE | 2020-07-14 12:41 | Discharge Summary ---
Date of Service July 14, 2020 Admission HPI Per Admitting Provider This is an 84 yo F with PMhx of CAD, HTN, HLD, chronic cerebral ischemia, dementia, neuropathy, hypothyroidism, obesity, angina pectoris who presents with onset of diarrhea which has been going on for 3-4 days, nausea and vomiting occurred once today. She lives along but does have family who comes in to check on her every day. Her sister lives down the street and helps her with her morning medications as well as eyedrops, and then 1 of her 7 children comes to visit in the evening. She admits to having increased urination and burning for a few days however she is unclear as to when it started due to her dementia. She has been tolerating oral intake without difficulty prior to today when she was nauseous. Her son is present with her at bedside and reports that she appears much better at this point in time compared to earlier. Discharge Data Allergies Allergy/AdvReac Type Severity Reaction Status Date / Time Penicillins Allergy Unknown RASH Verified 07/04/20 15:05 cephalexin [From Keflex] Allergy Unknown Verified 07/04/20 15:05 cortisone AdvReac Unknown REDNESS Verified 07/04/20 15:05 AND RED NOSE Consultations 07/04/20 14:58 ED Decision to Admit Stat 07/04/20 17:52 Consult Case Management - Discharge Planning Routine 07/06/20 09:36 Consult Gastroenterology Routine 07/06/20 14:08 Consult General Surgery Routine 07/11/20 12:17 Consult General Surgery Routine Ordered Studies 07/04/20 12:11 CT abd pelvis IV con only Stat 07/05/20 19:00 US gallbladder Routine 07/06/20 08:26 US venous doppler LE RT Routine Diabetes Follow up Diabetes Follow-up Needed for Newly Diagnosed Diabetes Hospital Course (1) Small bowel obstruction: * RESOLVED -- patient eating/drinking and continuing to pass gas. Successful BM this morning as well * Low grade obstruction on KUB 07/06, partial on 07/11 KUB * General Surgery consulted - continue conservative treatment, signed off * IVF discontinued, labs remain stable * Advanced to AHA/diabetic diet today --> if able to tolerate possible discharge this afternoon. CM assisting -- pt to be accepted to [facility] for acute rehab with plans to return home with family support after (2) Gastroenteritis: * Initially thought related to acute cholecystitis with elevated bilirubin, diarrhea, new DM on admission * CT abd pelvis with generalized small bowel enteritis, no evidence for abscess or obstruction, several nonobstructing R renal calcifications, reactive fluid within pelvic cul-de-sac. Several small gallstones * UQ U/S with stone and sludge filled gallbladder and wall thickening. No pericholecystic fluid * HIDA ordered to follow up and was normal - dc'd abx * GI consulted -- no need for surgery at this time * Stool cultures without isolates * Diet advanced with hopeful discharge this afternoon vs tomorrow (3) Gallbladder anomaly: * as above . Tbili and LFTs wnl on most recent labs (4) UTI (urinary tract infection): * UA appeared infected --> culture with E.coli. resistant to ampicillin and cefazolin * received 2 days of Ceftriaxone and then transitioned to Zosyn for gallbladder coverage - had 4 days total IV coverage - discontinued 07/08 * no leukocytosis or fever (5) Dementia: * Chronic, progressing over the past year * continue donepazil * Lives at home and has family support with seven children who come and spend the night with her daily. * Patient planning on rehab after discharge (6) Hypertension: * Recently discontinued lisinopril, ranexa and diuretic for hypotension * BPs controlled 148/77 * Continue metoprolol XL 50 mg daily, Imdur 60 mg daily (7) Hypothyroidism: * TSH 1.72 in 2018. * TSH 2.430 * Continue levothyroxine 100 mcg daily (8) Dyslipidemia: * Resumed atorvastatin (9) CAD (coronary artery disease): * Hx unsuccessful PCI to LAD. Cardiac Cath 07/31/12 with small to medium caliber LAD (type 1). Prox LAD 90% followed by 60% just prox to takeoff of Diag 1. Remainder of ostial - prox LAD 40%. mid LAD 30%. Very large Cx without significant CAD. Large, dominant RCA with 20 - 30% prox stenosis. Right to left collaterals noted. Anterolateral wall mildly hypokinetic. EF 50-55%. No MR. Normal LVEDP. No . * Attempts of LAD PCI done at [facility] without success after 90 min and 10-12 different guidewires, which were unable to be advanced beyond proximal stenosis. There was an even more severe stenosis approximately 5 mm beyond the 90% stenosis. * Opted for medical management and follows with Dr. Zavala locally * If needed in future, per notes, could attempt again by Dr. Li ([facility] [place] interventionalist). Patient denied pursing surgical intervention. ECHO 2018 with normal LV systolic function, type I diastolic dysfunction with mild L atrial dilation. * On plavix 75mg, metoprolol 50mg, atorvastatin 40mg HS -- will continue plavix/metoprolol given they are vital with severe CAD, statin on hold as NPO * Lisinopril d/c per Sally's note for hypotension * EKG 07/07, 07/12 without change (10) TIA (transient ischemic attack): * History of such, follows with Dr. Wild, neurology as an outpatient (11) Osteoarthritis: * R knee chronic pain, PT/OT consults, continue tramadol prn, tylenol prn. 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 (13) GERD (gastroesophageal reflux disease): * Initiated famotidine daily -- continue at discharge (14) Fractured coccyx: * Secondary to fall field captain * Continue donut pillow if one becomes available and positioning to offload pressure (15) DVT prophylaxis: * Teds, Heparin * US Dopplers NEGATIVE for DVT RLE given edema and increased pain reported to RN 07/06 CODE: Full code Dispo: per CM, bed available at [facility]. Auth pending. COVID swab negative Discharge Plan Discharge Items Reason For Visit: GASTROENTERITIS, UTI Condition on Discharge: Good Follow-up/Referrals: Laura Anderson CRNP [Primary Care Provider] - Stand-Alone Forms: [facility] [employer] [employer] Medications and DC Order Prescriptions: No Action diclofenac sodium 1 % gel 1 % topical QID PRN (Reason: Pain) RF: 0 nitroglycerin 0.4 mg tablet, sublingual 0.4 mg SL Q5M PRN (Reason: chest pain) Qty: 25 RF: 3 clopidogrel 75 mg tablet 75 mg PO DAILY RF: 0 PreserVision AREDS-2 [id number] capsule 1 tab PO BID RF: 0 atorvastatin 40 mg tablet 40 mg PO HS RF: 0 meloxicam 7.5 mg tablet 7.5 mg PO DAILY RF: 0 levothyroxine 100 mcg tablet 100 mcg PO QAM RF: 0 isosorbide mononitrate 60 mg tablet extended release 24 hr 60 mg PO QAM RF: 0 meclizine 25 mg tablet 25 mg PO TID PRN (Reason: Vertigo) RF: 0 duloxetine 30 mg capsule,delayed release(DR/EC) 30 mg PO QAM RF: 0 Women's One Daily 18 mg iron-400 mcg-500 mg Ca Tablet 1 tab PO DAILY RF: 0 riboflavin (vitamin B2) 400 mg Tablet 400 mg PO DAILY RF: 0 montelukast 10 mg tablet 10 mg PO DAILY RF: 0 metoprolol succinate 50 mg tablet extended release 24 hr 50 mg PO QAM RF: 0 tramadol 50 mg Tablet 25 mg PO DAILY PRN (Reason: Pain) RF: 0 cholecalciferol (vitamin D3) [Vitamin D3] 25 mcg (1,000 unit) tablet 1,000 units PO DAILY RF: 0 donepezil 10 mg tablet 10 mg PO DAILY RF: 0 Krames/Other Patient Handouts: A1C Admission Data Admit Date/Time: 07/06/20 14:20 Attending Provider: Demetrice Livingston Admit Provider: Cedrick Jarrell Primary Care Provider: Laura Anderson Other Providers: Cedrick Jarrell ; Adams Villatoro ; Morris Juarez ; Eulalio Ham Coding Diagnoses Small bowel obstruction K56.609 Gastroenteritis K52.9 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
[2020-07-14] MEDS: ATORVASTATIN 40 MG TAB PO SCH (20:17)
[2020-07-15] MEDS: ACETAMINOPHEN 325 MG TAB PO PRN ×2 (01:24→13:23)
[2020-07-15] MEDS: LEVOTHYROXINE SODIUM 100 MCG TABLET PO SCH (06:28)
[2020-07-15] MEDS: HEPARIN SOD 5,000 UNIT/0.5 ML VIAL SQ SCH ×3 (06:28→21:03)
[2020-07-15] MEDS: TRAMADOL HCL 50 MG TABLET PO PRN (06:34)
[2020-07-15] MEDS: ISOSORBIDE MONO EXTENDED REL 60 MG TABCR PO SCH (08:22)
[2020-07-15] MEDS: DONEPEZIL HCL 10 MG TAB PO SCH (08:22)
[2020-07-15] MEDS: DULOXETINE HCL 30 MG CAP PO SCH (08:22)
[2020-07-15] MEDS: MELOXICAM 7.5 MG TAB PO SCH (08:22)
[2020-07-15] MEDS: CEROVITE ADV FORMULA TAB PO SCH (08:23)
[2020-07-15] MEDS: FAMOTIDINE 20 MG TAB PO SCH (08:23)
[2020-07-15] MEDS: CLOPIDOGREL BISULFATE 75 MG TAB PO SCH (08:23)
[2020-07-15] MEDS: cycloSPORINE (RESTASIS) OPB SCH ×2 (08:24→21:02)
[2020-07-15] MEDS: METOPROLOL SUCC 50MG EXT REL TAB PO SCH (08:25)
[2020-07-15] MEDS: CHOLECALCIFEROL 1,000 UNITS 25 MCG TAB PO SCH (08:25)
[2020-07-15] MEDS: MONTELUKAST SODIUM 10 MG TABLET PO SCH (08:25)
[2020-07-15] MEDS: DICLOFENAC SOD 1% GEL 100 GM TUBE EXT SCH ×4 (08:25→21:02)
[2020-07-15 09:17] LABS: Partial Thromboplastin Ratio 1.6
[2020-07-15 09:25] LABS: Partial Thromboplastin Time 45.6 Seconds (21.0-31.0)
--- NOTE | 2020-07-15 10:42 | Hospitalist Progress Note ---
Date of Service July 15, 2020 Assessment & Plan (1) Small bowel obstruction: * RESOLVED -- patient eating/drinking and continuing to pass gas. Successful BM this morning as well * Low grade obstruction on KUB 07/06, partial on 07/11 KUB * General Surgery consulted - continue conservative treatment, signed off * IVF discontinued, labs remain stable * Tolerated DAHA diet * CM assisting -- pt to be accepted to [facility] for acute rehab with plans to return home with family support after but bed not available until Tuesday at least (2) Gastroenteritis: * Initially thought related to acute cholecystitis with elevated bilirubin, diarrhea, new DM on admission * CT abd pelvis with generalized small bowel enteritis, no evidence for abscess or obstruction, several nonobstructing R renal calcifications, reactive fluid within pelvic cul-de-sac. Several small gallstones * UQ U/S with stone and sludge filled gallbladder and wall thickening. No pericholecystic fluid * HIDA ordered to follow up and was normal - dc'd abx * GI consulted -- no need for surgery at this time * Stool cultures without isolates * Diet advanced as above, tolerating well (3) Gallbladder anomaly: * as above . Tbili and LFTs wnl on most recent labs (4) UTI (urinary tract infection): * UA appeared infected --> culture with E.coli. resistant to ampicillin and cefazolin * received 2 days of Ceftriaxone and then transitioned to Zosyn for gallbladder coverage - had 4 days total IV coverage - discontinued 07/08 * no leukocytosis or fever (5) Dementia: * Chronic, progressing over the past year * continue donepazil * Lives at home and has family support with seven children who come and spend the night with her daily. * Patient planning on rehab after discharge (6) Hypertension: * Recently discontinued lisinopril, ranexa and diuretic for hypotension * BPs controlled 142/72 * Continue metoprolol XL 50 mg daily, Imdur 60 mg daily (7) Hypothyroidism: * TSH 1.72 in 2018. * TSH 2.430 * Continue levothyroxine 100 mcg daily (8) Dyslipidemia: * Resumed atorvastatin (9) CAD (coronary artery disease): * Hx unsuccessful PCI to LAD. Cardiac Cath 07/31/12 with small to medium caliber LAD (type 1). Prox LAD 90% followed by 60% just prox to takeoff of Diag 1. Remainder of ostial - prox LAD 40%. mid LAD 30%. Very large Cx without significant CAD. Large, dominant RCA with 20 - 30% prox stenosis. Right to left collaterals noted. Anterolateral wall mildly hypokinetic. EF 50-55%. No MR. Normal LVEDP. No . * Attempts of LAD PCI done at [facility] without success after 90 min and 10-12 different guidewires, which were unable to be advanced beyond proximal stenosis. There was an even more severe stenosis approximately 5 mm beyond the 90% stenosis. * Opted for medical management and follows with Dr. Zavala locally * If needed in future, per notes, could attempt again by Dr. Li ([facility] [place] Patient denied pursing surgical intervention. ECHO 2018 with normal LV systolic function, type I diastolic dysfunction with mild L atrial dilation. * On plavix 75mg, metoprolol 50mg, atorvastatin 40mg HS -- will continue plavix/metoprolol given they are vital with severe CAD, statin on hold as NPO * Lisinopril d/c per Sally's note for hypotension * EKG 07/07, 07/12 without change (10) TIA (transient ischemic attack): * History of such, follows with Dr. Wild, neurology as an outpatient (11) Osteoarthritis: * R knee chronic pain, PT/OT consults. 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 [facility] had issue over the weekend and not able to accept until possibly Tuesday. They do have beds at [facility] and [place] although Richie stated family would like to wait until Tuesday and if no bed will consider alternative option. Admission and Anticipated Discharge Date Admission Date: July 06, 2020 Supervising Physician Co-Signing Physician Notes Pt d/w Ms. Curry, PAC Agree with plan as outlined above UTI Acute GE A1c elevated, no hx of prior DM medications Holding on metformin for now due to acute GE and risk of decreased PO intake, absorption, CHAD SBO, no plans for OR at this time Awaiting placement with [facility] neg (testing done for screening purposes only) Subjective Patient evaluated this morning. Doing well after pain medication with tylenol and tramadol, as she reports she had some increased pain in her legs last evening. Per discussion with daughter on the phone in the room, patient typically only utilizes pain medications as needed and is good about asking for them. Discussed we will change pain medications to prn and had Mrs. Meek ask when she needs them. Denies fever, chills, chest pain, shortness of breath, n/v, abdominal pain at this time. Still awaiting bed at [facility]. Hopeful for tomorrow. Review of Systems Review of Systems: All systems reviewed & are unremarkable except as noted in HPI & below Physical Exam Constitutional: WD/WN, vitals as above + obese; no acute distress up in chair Eyes: + anicteric sclerae and PERRL ENMT: Ears: + hearing impairment (hard of hearing) Neck: normal visual inspection Respiratory: able to speak in complete sentences; no respiratory distress and no labored breathing Auscultation: lungs clear to auscultation bilaterally and + diminished lung sounds; no crackles and no wheezes Cardiovascular: RRR, no murmur, no edema Rate/Rhythm: regular rate and regular rhythm Vessels: no JVD Extremities: + edema (R>L, chronic per patient) Gastrointestinal (Abdomen): Inspection/Auscultation: abdomen normal to inspection and normal bowel sounds Percussion/Palpation: abdomen soft; abdomen nontender and abdomen not rigid Musculoskeletal: Head/Neck/Chest: normocephalic and head atraumatic tender to palpation over coccyx Skin: warm dry Neurologic: patellar DTR's 2+ bilat, sensation intact moves all extremities and awake Psychiatric: Orientation: alert, oriented to person, oriented to place and cooperative Lymphatic: no cervical or axillary lymphadenopathy Results & Data Results & Data ([facility]) Vital Signs (Past 12 Hours) Vital Signs Temp Pulse Resp BP Pulse Ox 07/15/20 07:19 36.7 C 50 L 18 142/72 H 98 07/14/20 23:16 36.8 C 59 L 16 145/86 H 97 Laboratory Results 07/15/20 07/15/20 07/15/20 Range/Units 11:59 08:34 08:07 APTT 45.6 H* (21.0-31.0) Seconds PTT Ratio 1.6 POC Glucose 126 H 97 (70-99) mg/dl 07/14/20 07/14/20 Range/Units 20:54 17:19 APTT (21.0-31.0) Seconds PTT Ratio POC Glucose 105 H 89 (70-99) mg/dl PG Care Time/CCT Total # of Minutes Spent Total Time Spent with Patient: Total time spent is greater than 50% in coordination of care (as documented) at patient's floor/unit and/or counseling patient: Coding Level of Care Code 02593 Subseq Hosp Care Lvl 2 Diagnoses Small bowel obstruction K56.609 Gastroenteritis K52.9 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
[2020-07-15] MEDS ORDERED: MELOXICAM 7.5 MG TAB PO PRN (11:26)
[2020-07-15] MEDS: ATORVASTATIN 40 MG TAB PO SCH (21:02)
[2020-07-16] MEDS: LEVOTHYROXINE SODIUM 100 MCG TABLET PO SCH (05:37)
[2020-07-16] MEDS: HEPARIN SOD 5,000 UNIT/0.5 ML VIAL SQ SCH ×2 (05:37→13:52)
[2020-07-16 06:37] LABS: Hematocrit (blood only) 42.2 % (37-47); Hemoglobin 14.1 g/dL (12.0-16.0); Mean Corpuscular Hemoglobin 30.2 pg (25-34); Mean Corpuscular Hgb Conc 33.4 g/dL (32-36); Mean Corpuscular Volume 90.4 fL (80-100); Mean Platelet Volume 9.9 fL (7.4-10.4); Platelet Count 211 K/uL (130-400); RDW Coefficient of Variation 13.9 % (11.5-14.5); RDW Standard Deviation 45.1 fL (36.4-46.3); Red Blood Count 4.67 M/uL (4.2-5.4); White Blood Count 6.58 K/uL (4.8-10.8)
[2020-07-16 06:53] LABS: Partial Thromboplastin Ratio 1.6
[2020-07-16 06:56] LABS: Partial Thromboplastin Time 45.1 Seconds (21.0-31.0)
[2020-07-16 07:04] LABS: BUN Creatinine Ratio 18.7 (10-20); Calcium 10.1 mg/dl (8.5-10.1); Creatinine Clr Calc Pharmacy 56.2 ml/min; Est GFR (African American) 91.3; Est GFR (Non-African American) 78.8; Potassium 3.9 mmol/L (3.5-5.1)
[2020-07-16] MEDS: CEROVITE ADV FORMULA TAB PO SCH (07:34)
[2020-07-16] MEDS: CLOPIDOGREL BISULFATE 75 MG TAB PO SCH (07:34)
[2020-07-16] MEDS: FAMOTIDINE 20 MG TAB PO SCH (07:34)
[2020-07-16] MEDS: MONTELUKAST SODIUM 10 MG TABLET PO SCH (07:34)
[2020-07-16] MEDS: ISOSORBIDE MONO EXTENDED REL 60 MG TABCR PO SCH (07:34)
[2020-07-16] MEDS: DULOXETINE HCL 30 MG CAP PO SCH (07:35)
[2020-07-16] MEDS: DONEPEZIL HCL 10 MG TAB PO SCH (07:35)
[2020-07-16] MEDS: CHOLECALCIFEROL 1,000 UNITS 25 MCG TAB PO SCH (07:35)
[2020-07-16] MEDS: DICLOFENAC SOD 1% GEL 100 GM TUBE EXT SCH ×2 (07:36→13:52)
[2020-07-16] MEDS: cycloSPORINE (RESTASIS) OPB SCH (07:36)
[2020-07-16] MEDS: METOPROLOL SUCC 50MG EXT REL TAB PO SCH (07:37)
--- NOTE | 2020-07-16 10:01 | Discharge Summary ---
Date of Service July 16, 2020 Admission HPI Per Admitting Provider Primary Care Provider: SEYMOUR Houser This is an 84 yo F with PMhx of CAD, HTN, HLD, chronic cerebral ischemia, dementia, neuropathy, hypothyroidism, obesity, angina pectoris who presents with onset of diarrhea which has been going on for 3-4 days, nausea and vomiting occurred once today. She lives along but does have family who comes in to check on her every day. Her sister lives down the street and helps her with her morning medications as well as eyedrops, and then 1 of her 7 children comes to visit in the evening. She admits to having increased urination and burning for a few days however she is unclear as to when it started due to her dementia. She has been tolerating oral intake without difficulty prior to today when she was nauseous. Her son is present with her at bedside and reports that she appears much better at this point in time compared to earlier. Admission Exam Per Admitting Provider Physical Exam: General: awake, alert, no apparent distress, + intermittently confused, cannot recall details of some things, chatty Head: Normocephalic, atraumatic ENT: PERRL, EOMI, no pharyngeal exudate, mucous membranes moist Chest: Clear to auscultation, on room air, no adventitious breath sounds Cardiac: Regular rate and rhythm, no murmur, no JVD, normal peripheral pulses, good capillary refill Abdominal: NABS x 4 quadrants, soft, nondistended, generalized tenderness with palpation, no rebound, guarding or tenderness Extremities: Right knee swelling, pain with extension and flexion, otherwise normal inspection, no peripheral edema or erythema, calfs nontender to palpation Psych: Normal mood and affect Neuro: AAO x 3, strength intact bilaterally and rated 5/5, no gross motor deficits, speech is clear, no peripheral sensory deficits Skin: no rash or erythema Principal Diagnosis Gastroenteritis, UTI, Coccyx Fracture Discharge Exam Constitutional: WD/WN, vitals as above + obese; no acute distress up in chair Eyes: + anicteric sclerae and PERRL ENMT: Ears: + hearing impairment (hard of hearing) Neck: normal visual inspection Respiratory: able to speak in complete sentences; no respiratory distress and no labored breathing Auscultation: lungs clear to auscultation bilaterally and + diminished lung sounds; no crackles and no wheezes Cardiovascular: RRR, no murmur, no edema Rate/Rhythm: regular rate and regular rhythm Vessels: no JVD Extremities: + edema (R>L, chronic per patient) Gastrointestinal (Abdomen): Inspection/Auscultation: abdomen normal to inspection and normal bowel sounds Percussion/Palpation: abdomen soft; abdomen nontender and abdomen not rigid Musculoskeletal: Head/Neck/Chest: normocephalic and head atraumatic tender to palpation over coccyx Skin: warm dry Neurologic: patellar DTR's 2+ bilat, sensation intact moves all extremities and awake Psychiatric: Orientation: alert, oriented to person, oriented to place and cooperative Lymphatic: no cervical or axillary lymphadenopathy Constitutional WD/WN, vitals as above + obese; no acute distress Eyes + anicteric sclerae and PERRL ENMT Ears: + hearing impairment (hard of hearing) Neck normal visual inspection Respiratory able to speak in complete sentences; no respiratory distress and no labored breathing Auscultation: lungs clear to auscultation bilaterally and + diminished lung sounds; no crackles and no wheezes Cardiovascular RRR, no murmur, no edema Rate/Rhythm: regular rate and regular rhythm Vessels: no JVD Extremities: + edema (R>L, chronic per patient) Gastrointestinal (Abdomen) Inspection/Auscultation: abdomen normal to inspection and normal bowel sounds Percussion/Palpation: abdomen soft; abdomen nontender and abdomen not rigid Musculoskeletal Head/Neck/Chest: normocephalic and head atraumatic tender to palpation over coccyx Skin warm, dry Neurologic patellar DTR's 2+ bilat, sensation intact and PERRL, EOMI, accommodation nl, no face palsy, no dysarthria moves all extremities and awake Psychiatric Orientation: alert, oriented to person, oriented to place and cooperative; + not oriented to time Lymphatic no cervical or axillary lymphadenopathy Discharge Data Allergies Allergy/AdvReac Type Severity Reaction Status Date / Time Penicillins Allergy Unknown RASH Verified 07/04/20 15:05 cephalexin [From Keflex] Allergy Unknown Verified 07/04/20 15:05 cortisone AdvReac Unknown REDNESS Verified 07/04/20 15:05 AND RED NOSE Consultations 07/04/20 14:58 ED Decision to Admit Stat 07/04/20 17:52 Consult Case Management - Discharge Planning Routine 08/16/20 09:36 Consult Gastroenterology Routine 07/06/20 14:08 Consult General Surgery Routine 07/11/20 12:17 Consult General Surgery Routine Ordered Studies 07/04/20 12:11 CT abd pelvis IV con only Stat 07/05/20 19:00 US gallbladder Routine 07/06/20 08:26 US venous doppler LE RT Routine Diabetes Follow up Diabetes Follow-up Needed for Newly Diagnosed Diabetes Hospital Course (1) Small bowel obstruction: * RESOLVED * Low grade obstruction on KUB 07/06, partial on 07/11 KUB * General Surgery consulted - continue conservative treatment, signed off * IVF discontinued, labs remain stable * Tolerated DAHA diet * Continues to move bowels, normal in color/consistency. No further diarrhea * PT/OT * Discharged home with home PT/OT via home health (2) Gastroenteritis: * RESOLVED * Initially thought related to acute cholecystitis with elevated bilirubin, diarrhea, new DM on admission * CT abd pelvis with generalized small bowel enteritis, no evidence for abscess or obstruction, several nonobstructing R renal calcifications, reactive fluid within pelvic cul-de-sac. Several small gallstones * UQ U/S with stone and sludge filled gallbladder and wall thickening. No pericholecystic fluid * HIDA ordered to follow up and was normal - dc'd abx * GI consulted -- no need for surgery at this time * Stool cultures without isolates * Diet advanced as above, tolerated well (3) Gallbladder anomaly: * as above . Tbili and LFTs wnl on most recent labs (4) UTI (urinary tract infection): * RESOLVED * UA appeared infected --> culture with E.coli. resistant to ampicillin and cefazolin * received 2 days of Ceftriaxone and then transitioned to Zosyn for gallbladder coverage - had 4 days total IV coverage - discontinued 07/08 * no leukocytosis or fever (5) Dementia: * Chronic, progressing over the past year * continued donepazil * Lives at home and has family support with seven children who come and spend the night with her daily. * Home with home health for therapy (6) Hypertension: * Recently discontinued lisinopril, ranexa and diuretic for hypotension * Continued metoprolol XL 50 mg daily, Imdur 60 mg daily (7) Hypothyroidism: * TSH 1.72 in 2018. * TSH 2.430 * Continued levothyroxine 100 mcg daily (8) Dyslipidemia: * Resumed atorvastatin (9) CAD (coronary artery disease): * Hx unsuccessful PCI to LAD. Cardiac Cath 07/31/12 with small to medium caliber LAD (type 1). Prox LAD 90% followed by 60% just prox to takeoff of Diag 1. Remainder of ostial - prox LAD 40%. mid LAD 30%. Very large Cx without significant CAD. Large, dominant RCA with 20 - 30% prox stenosis. Right to left collaterals noted. Anterolateral wall mildly hypokinetic. EF 50-55%. No MR. Normal LVEDP. No . * Attempts of LAD PCI done at [facility] without success after 90 min and 10-12 different guidewires, which were unable to be advanced beyond proximal stenosis. There was an even more severe stenosis approximately 5 mm beyond the 90% stenosis. * Opted for medical management and follows with Dr. Zavala locally * If needed in future, per notes, could attempt again by Dr. Li ([facility] interventionalist). Patient denied pursing surgical intervention. ECHO 2017 with normal LV systolic function, type I diastolic dysfunction with mild L atrial dilation. * On plavix 75mg, metoprolol 50mg, atorvastatin 40mg HS -- will continue plavix/metoprolol given they are vital with severe CAD, statin on hold as NPO * Lisinopril d/c per Sally's note for hypotension * EKG 07/07, 07/12 without change (10) TIA (transient ischemic attack): * History of such, follows with Dr. Wild, neurology as an outpatient (11) Osteoarthritis: * R knee chronic pain, PT/OT consults. 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 Tylenol, tramadol prn (15) DVT prophylaxis: * Teds, Heparin while inpatient * US Dopplers NEGATIVE for DVT RLE given edema and increased pain reported to RN 07/06 Patient tolerated DAHA diet without issues. Patient ultimately decided on home health with family support. Arranged by CM. Total Time Total Time Spent Total Time Spent (In Minutes): 90 Discharge Plan Discharge Items Patient Disposition: Home - Home Health Services Reason For Visit: GASTROENTERITIS, UTI Discharge Diagnosis: Urinary Tract Infection, Gastroenteritis, Coccyx Fracture Condition on Discharge: Good Activity: As commented below Activity Comment: advance as tolerated with physical therapy Non-emergency contact: Primary Care Provider Call non-emergency contact if: you have any medication questions, your symptoms worsen and your pain is concerning for you Follow-up/Referrals: Laura Anderson CRNP [Primary Care Provider] - Diet: Carb Consistent or DM2 and Heart Healthy Addtl Attending Provider Instructions: You have been hospitalized for gastroenteritis and were found to have a urinary tract infection, which was treated with antibiotics. All stool studies have been negative. There were concerns regarding your gallbladder, but all follow up imaging was negative for acute cholecystitis (inflammation and infection of the gallbladder requiring surgery) and no surgery was warranted. Your labs were checked and the labs that were elevated in relation to your gallbladder have all returned to normal. You were found to have an elevated A1c 7.2% which is technically diabetes. Given that you were not on oral agents prior to admission and that you have been having issues with upset stomach, it is recommended that you follow up with your primary care provider about possibly initiating therapy with a medication called metformin to help control your diabetes given that untreated diabetes can have serious adverse effects on your health and vasculature. You were also found to have a fractured coccyx bone that does not require surgery and you have been set up with some short term rehab at [facility] prior to returning home as this takes some time to heal. You may continue to use donut pillow as needed for comfort. You were started on famotidine for reflux and this has been continued at discharge. Please follow up with your primary care provider in the next week to monitor your progress since discharge from the hospital. You have been evaluated by physical and occupational therapy and while skilled rehab is recommended, your improvement is acceptable for home with home therapy and has been set up. Please return to the emergency department with any fevers, chills, chest pain or for any other symptoms that are concerning for you. It has been a pleasure being a part of the care team providing for you while you have been in the hospital. Take care! Pending Studies at Discharge: No Stand-Alone Forms: My [facility], Smoking Cessation Medications and DC Order Prescriptions: New famotidine 20 mg Tablet 20 mg PO QAM Qty: 30 RF: 0 Restasis 0.05 % Dropperette 1 drp OPB Q12H Qty: 30 RF: 0 Continued diclofenac sodium 1 % gel 1 % topical QID PRN (Reason: Pain) RF: 0 nitroglycerin 0.4 mg tablet, sublingual 0.4 mg SL Q5M PRN (Reason: chest pain) Qty: 25 RF: 3 clopidogrel 75 mg tablet 75 mg PO DAILY RF: 0 PreserVision AREDS-2 [id number] capsule 1 tab PO BID RF: 0 atorvastatin 40 mg tablet 40 mg PO HS RF: 0 meloxicam 7.5 mg tablet 7.5 mg PO DAILY RF: 0 levothyroxine 100 mcg tablet 100 mcg PO QAM RF: 0 isosorbide mononitrate 60 mg tablet extended release 24 hr 60 mg PO QAM RF: 0 meclizine 25 mg tablet 25 mg PO TID PRN (Reason: Vertigo) RF: 0 duloxetine 30 mg capsule,delayed release(DR/EC) 30 mg PO QAM RF: 0 Women's One Daily 18 mg iron-400 mcg-500 mg Ca Tablet 1 tab PO DAILY RF: 0 riboflavin (vitamin B2) 400 mg Tablet 400 mg PO DAILY RF: 0 montelukast 10 mg tablet 10 mg PO DAILY RF: 0 metoprolol succinate 50 mg tablet extended release 24 hr 50 mg PO QAM RF: 0 tramadol 50 mg Tablet 25 mg PO DAILY PRN (Reason: Pain) RF: 0 cholecalciferol (vitamin D3) [Vitamin D3] 25 mcg (1,000 unit) tablet 1,000 units PO DAILY RF: 0 donepezil 10 mg tablet 10 mg PO DAILY RF: 0 Discharge Orders: Discharge Order (Routine); Ordered 07/16/20 Ordered By: Alysa Willingham/Other Patient Handouts: A1C Admission Data Admit Date/Time: 08/14/20 16:19 Attending Provider: Cedrick Jarrell Admit Provider: Cedrick Jarrell Primary Care Provider: Laura Anderson Other Providers: Eulalio Ham ; Belkys Martinez Other Interventions: Discharge Summary Assessment (RN) Last Done: 07/16/20 17:17 Supervising Physician Co-Signing Physician Notes Attending Attestation and Discharge Note: Pt seen and examined, chart reviewed, discharge care plan d/w VELIA Curry. 84yo female who presented with gastroenteritis type symptoms. CT abd/pelvis c/w such. Also with evidence of UTI and coccygeal Fx as patient c/o pain in this location following a recent fall. UTI 2nd to e.coli, treated with IV/PO antibiotics. Gallstones seen on CT - some concern GI sx's were 2nd to such - but HIDA negative. Diet advanced later in stay and tolerating DM diet at discharge. Transferring to [facility] in [place] for ongoing rehab at discharge. pt with past h/o pre-DM, now with full-blown T2DM as a1c is 7.2%. advise diet control for now. Discharge exam: gen - nad mouth - MMM heart - RRR, s1 s2 lungs - cta b/l abd - soft NT ND BS+ ext - pulses 2+ b/l Cedrick Jarrell MD Coding Level of Care Code D/C Day Management >30 mins Diagnoses Small bowel obstruction K56.609 Gastroenteritis K52.9 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
[2020-07-16] MEDS: TRAMADOL HCL 50 MG TABLET PO PRN (10:08)
== END 2020-07-16 18:19 | disposition home health service (06) | DRG 389 ==
LOC: 3W 11:40 → ED 11:40 → SUATTDRO 16:19 → 3W 17:26 → SUATTDRO 07-06 14:20